=== PATIENT | female | born 1960 | race Caucasian/White ===

== ENCOUNTER 2024-04-10 15:36 | Inpatient (IN) | payer OTHER ==
--- OUTSIDE RECORDS SUMMARY | 2024-04-10 15:43 | XMS REPORT | Continuity of Care Document ---
Author Name Unknown Address [address] [facility] [address] [place] [address] [facility] thconnect Address [address] [facility] [address] [place] [address] Care Team Providers Care Air Traffic Coordinator Name Role Phone Jacob Whitley DO Primary Care Physician [phone] ALECIA BEST Attending Clinician Unavailable CHRISTELLE JIMENEZ Attending Clinician Unavailable Jacob Whitley DO Attending Clinician [phone] TEJAL QUEZADA Attending Clinician Unavaila ble Jacob Whitley DO Attending Clinician [phone] JAMILAH BOYLE Attending Clinician Unavailable Alok Aquino MD Attending Clinician [phone] ALOK AQUINO Attending Clinician Unavailable ERENDIRA ROSS Attending Clinician Unavailable [facility] Attending Clinicia n Jamilah Boyle MD Attending Clinician [phone] TUSHAR DWYER Attending Clinician Unavailable Pcp-Lab Attending Clinician Unavailable RENO JOHNSON Attending Clinician Unav RENO Reece Attending Clinician Unav AMNA Ulrich THEO Attending Clinician Unav ailable EDITH, AMNA VENEGAS Attending Clinician Unav ailable AIXA FRIEDMAN Attending Clinician Unavailable Alecia Best MD Attending Clinician [phone] Keri Mejia DO Attending Clinician [phone] Isabel HARRINGTON, Leslie Merritt Attending Clinician Unavailable Chadwick CONDON, Allen Meeks Attending Clinician Unavailable Jenn CONDON, Festus Melendez Attending Clinician [phone] Jessica FULLING MILL OPERATOR, Aye Attending Clinician [phone] Daisha RN, Abeba L Attending Clinician Unav ailable Doctor Unassigned, [place] Attending Clinician U navailable Lab, [facility] Attending Clinician Unavailable Elder CONDON, Aixa Merritt Attending Clinician [phone] FRED GASTELUM Attending Clinician Unavailable Nirav FULLING MILL OPERATOR, Fred Attending Clinician [phone] ASIM, ALICIA Attending Clinician Unavailable Asim CONDON, Alicia Attending Clinician [phone] Gaby Ackerman Attending Clinician [phone] GABY HOLM Attending Clinician Unavaila ALLEN Duarte Attending Clinician Un available AMBREEN_FARHANA Attending Clinician Unavailable Unknown, Attending Attending Clinician Unavailab karina Ross MD, Erendira Attending Clinician [phone] Uriel Arreguin Attending Clinician [phone] Yamilka Cuenca RN Attending Clinician [phone] RYNE TANG Attending Clinician Unavailable Faisal Anaya MD Attending Clinician [phone] Ryne Tang MD Attending Clinician [phone] Anesthesiology Attending Clinician Unavailable SUNNY EDDY Attending Clinician Unavailable Garett HARRINGTON, Afia Attending Clinician Unavailable RENAN HOOD Attending Clinician Unavaila ABHINAV Villalobos Attending Clinician Unavailgregorio lagunas UNKNOWN, ATTENDING Attending Clinician Unavailab karina Zee, [facility] Attending Clinician Unavailgregorio Forman MD, Bradly Attending Clinician [phone] BRDALY FORMAN Attending Clinician UnavailELSA Hartley Attending Clinician Unavail Olena Carpenter Attending Clinician UnavailALECIA Locke Admitting Clinician Unavailable JAMILAH BOYLE Admitting Clinician Unavailable FRED GASTELUM Admitting Clinician Unavailable Alecia Best MD Admitting Clinician [phone] ALLEN TAPIA Admitting Clinician Un available AMBREEN_FARHANA Admitting Clinician Unavailable RYNE TANG Admitting Clinician Unavailable Ryne Tang MD Admitting Clinician [phone] RENAN HOOD Admitting Clinician UnavailABHINAV Gastelum Admitting Clinician UnavailOlena Romero Admitting Clinician Unavailann marie noriega Payers Payer Name Policy Type Policy Number Effective Date Expirati on Date Source [facility] PL[facility] [id number] 00:00:00 [facility] PLUS OON [id number] 2021 00:00:00 [facility] (MEDICAID HMO) [id number] 2013 00:00:00 [facility] [id number] 00:00:00 Problems Condition Name Condition Details Condition Category Status Onset Date Resolution Date Last Treatment Date Treating Clinician Comments Source Encounter for screening colonoscop y Encounter for screening colonoscop y Disease Active 2021-06 00:00: 00 Overview: Formattin g of this note might be different from the original. Added automatic ally from request for surgery [id number] [facility] Stroke determined by clinical assessment Stroke determined by clinical assessment Disease Active -15 00:00: 00 [facility] Acute cardioembo lic stroke Acute cardioembo lic stroke Disease Active 3- 00:00: 00 [facility] CVA CVA Active 08/21/2021 [facility] Diagnosis Active 08-21 00:00: 00 2021-08-21 13:24:00 Inga RUELAS BILLING Active 08/21/2021 [facility] Diagnosis Active 08-21 00:00: 00 2021-08-24 10:50:00 Inga Rodríguez FACIAL DROOP FACIAL DROOP Active 08/21/2021 [facility] Diagnosis Active 08-21 00:00: 00 2021-08-25 15:29:00 Inga Rodríguez TIA (transient ischemic attack) TIA (transient ischemic attack) Disease Active 2020-06 0-04 00:00: 00 [facility] Smoker Smoker Disease Active 2020-06 0-04 00:00: 00 [facility] SDH (subdural hematoma) SDH (subdural hematoma) Disease Active 2015-06 00:00: 00 [facility] 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 00:00: 00 [facility] Malignant tumor of lung (disorder) Malignant tumor of lung (disorder) Active Problem 08/26/2021 [facility] Problem Active 2021-08-26 23:36:11 Inga Rodríguez Subdural hematoma (disorder) Subdural hematoma (disorder) Active Problem 08/26/2021 [facility] Problem Active 2021-08-26 23:36:11 Inga Rodríguez FACIAL WEAKNESS FACIAL WEAKNESS Active [facility] Diagnosis Active 2021-08-25 15:29:00 Inga Rodríguez Alcohol abuse (disorder) Alcohol abuse (disorder) Active Problem 08/26/2021 [facility] Problem Active 2021-08-26 23:36:11 Inga Rodríguez Allergies, Adverse Reactions, Alerts Allergy Name Allergy Type Status Severity Reaction(s) Onset Date Inactive Date Treating Clinician Comments Source CODEINE DRUG INGREDI Active N/V 2015-06 00:00: 00 [facility] IBUPROFE N DRUG INGREDI Active N/V 2015-06 00:00: 00 [facility] Codeine Propensi ty to adverse reaction s Active Nausea and/or Vomiting 2015-06 00:00: 00 [facility] Ibuprofe n Propensi ty to adverse reaction s Active Nausea and/or Vomiting 2015-06 00:00: 00 [facility] codeine codeine Active Inga Rodríguez ibuprofe n ibuprofe n Active Inga Rodríguez Social History Social Habit Start Date Stop Date Quantity Comments [facility] History of tobacco use Cigarette Smoker [facility] History SDOH Alcohol Frequency [facility] History SDOH Alcohol Std Drinks [facility] History SDOH Alcohol Binge [facility] History of Social function 2023-03-07 00:00:00 2023-03-07 00:00:00 [facility] Alcoholic beverage intake 2023-03-07 00:00:00 2023-03-07 00:00:00 1.43 /d [facility] Alcohol intake 2023-03-07 00:00:00 2023-03-07 00:00:00 1.43 /d [facility] Exposure to SARS-CoV-2 (event) 2022-10-02 00:00:00 2022-10-12 13:16:00 Not sure [facility] Cigarettes smoked current (pack per day) - Reported 2022-04-29 00:00:00 2022-04-29 00:00:00 [facility] Cigarette pack-years 2022-04-29 00:00:00 2022-04-29 00:00:00 [facility] Tobacco use and exposure 2022-04-29 00:00:00 2022-04-29 00:00:00 Smokeless tobacco non-user [facility] Social History 2021-08-21 19:20:05 2021-08-21 19:20:05 [facility] Alcohol Comment 2021-03-30 00:00:00 2021-03-30 00:00:00 mixed drinks every evening [facility] Sex assigned at 1960 00:00:00 1960 00:00:00 [facility] Smoking Status Start Date Stop Date Source Occasional tobacco smoker 2022-04-29 00:00:00 [facility] Smokes tobacco daily 2022-01-19 00:00:00 [facility] Medications Ordered Medication Name Filled Medication Name Start Date Stop Date Current Medication? Ordering Clinician Indication Dosage Frequency Signature (SIG) Comments Components Source ASPIRIN-DIP YRIDAMOLE 25-200 mg per 12 hr capsule 8-15 00:00: 00 Yes [id number] TAKE 1 CAPSULE BY MOUTH EVERY MORNING AND IN THE EVENING [facility] aspirin-dip yridamole 25-200 mg per 12 hr capsule 6-04 00:00: 00 02-08 00:00 :00 No [id number] 1{capsu le} Take 1 capsule by mouth in the morning and 1 capsule in the evening. [facility] aspirin-dip yridamole 25-200 mg per 12 hr capsule 5-12 00:00: 00 11-28 00:00 :00 No [id number] 1{capsu le} Take 1 capsule by mouth in the morning and 1 capsule in the evening. [facility] atorvastati n 40 mg tablet 03-07 00:00: 00 Yes [id number] 40mg Take 1 tablet by mouth at bedtime. [facility] nicotine polacrilex (NICORETTE) 4 mg gum 03-07 00:00: 00 Yes [id number] 4mg Take 1 Each by mouth as needed for Smoking cessation. [facility] Lacosamide 100 mg tablet 03-07 00:00: 00 Yes [id number] 100mg Take 1 tablet by mouth in the morning and 1 tablet in the evening. [facility] aspirin-dip yridamole 25-200 mg per 12 hr capsule 03-07 00:00: 00 11-03 00:00 :00 No [id number] 1{capsu le} Take 1 capsule by mouth in the morning and 1 capsule in the evening. [facility] sod sulf-pot chloride-ma g sulf (SUTAB) 1.479-0.188 - 0.225 gram Tab 18 00:00: 00 03-07 00:00 :00 No [id number] 1{kit} Take 1 Kit by mouth SEE-INSTRU CTIONS. 1 bottle by mouth 12 hours prior to procedure arrival time and 1 bottle 6 hours prior to procedure arrival time. [facility] sod sulf-pot chloride-ma g sulf (SUTAB) 1.479-0.188 - 0.225 gram Tab 12-31 00:00: 00 01-11 00:00 :00 No [id number] 1{bottl e} Take 1 Bottle by mouth SEE-INSTRU CTIONS. [facility] atorvastati n 40 mg tablet 12-15 00:00: 00 03-07 00:00 :00 No [id number] 40mg Take 1 tablet by mouth at bedtime. [facility] LACOSAMIDE 100 mg tablet 12-08 00:00: 00 03-07 00:00 :00 No [id number] TAKE 1 TABLET BY MOUTH TWICE A DAY [facility] atorvastati n 40 mg tablet 12-08 00:00: 00 12-15 00:00 :00 No [id number] 40mg Take 1 tablet by mouth at bedtime. [facility] NaCl 0.9% (NS) injection 10 mL 09-28 21:45: 00 09-28 20:34 :00 No [id number] 10mL [facility] clostridium botulinum toxin (BOTOX) injection 100 Units 09-28 21:30: 00 09-28 20:33 :00 No [id number] 100U [facility] lidocaine PF 2% (XYLOCAINE- MPF) injection 20 mg 09-28 20:30: 00 09-28 19:26 :00 No [id number] 20mg [facility] water for injection, sterile injection 20 mL 09-28 20:15: 00 09-28 19:26 :00 No [id number] 20mL [facility] lidocaine (XYLOCAINE) 2 % jelly URO-JET 11 mL 09-28 20:15: 00 09-28 19:28 :00 No [id number] 11mL [facility] sulfamethox azole-trime thoprim 800-160 mg per tablet 3-09 00:00: 00 09-10 04:59 :00 No [id number] 1{tbl} Take 1 tablet by mouth in the morning and 1 tablet in the evening. Do all this for 7 days. [facility] Nitrofurant oin&Nit. Macrocryst (MACROBID) 100 mg capsule 3-09 00:00: 00 09-09 04:59 :00 No [id number] 100mg Take 1 capsule by mouth at bedtime for 6 doses. 3 days prior to procedure and 3 days after [facility] sulfamethox azole-trime thoprim 800-160 mg per tablet 2-27 00:00: 00 08-27 05:59 :00 No [id number] 1{tbl} Take 1 tablet by mouth in the morning and 1 tablet in the evening. Do all this for 3 days. [facility] sulfamethox azole-trime thoprim 800-160 mg per tablet 2-07 00:00: 00 08-11 05:59 :00 No [id number] 1{tbl} Take 1 tablet by mouth in the morning and 1 tablet in the evening. Do all this for 7 days. [facility] Nitrofurant oin&Nit. Macrocryst (MACROBID) 100 mg capsule 2-03 00:00: 00 08-06 05:59 :00 No [id number] 100mg Take 1 capsule by mouth at bedtime for 6 doses. 3 days prior to procedure and 3 days after [facility] LACOSAMIDE 100 mg tablet 2021-06- 00:00: 00 12-08 00:00 :00 No [id number] TAKE 1 TABLET BY MOUTH TWICE A DAY [facility] sodium chloride 0.9 % irrigation solution 2021-06 13:43: 00 04-30 15:13 :14 No PRN, Starting on Tue04/30/22 at 0843, Until Tue04/30/22 at 1013, Intra-op [facility] simethicone (GAS RELIEF (SIMETHICON E)) 40 mg/0.6 mL drops 2021-06 13:43: 00 04-30 15:13 :14 No PRN, Starting on Tue04/30/22 at 0843, Until Tue04/30/22 at 1013, Routine, Intra-op [facility] lactated ringers IV infusion 1,000 mL 2021-06 1-04 12:15: 00 04-30 12:42 :00 No 1000mL at 42 mL/hr, 1,000 mL, IV Infusion, ONCE, 1 dose, On Tue04/30/22 at 0715, Routine, [facility] Pre-op [facility] ATORVASTATI N 40 mg tablet 2021-06 0-20 00:00: 00 12-08 00:00 :00 No [id number] TAKE 1 TABLET BY MOUTH EVERYDAY AT BEDTIME [facility] solifenacin (VESICARE) 10 mg tablet 2021-06 0-10 00:00: 00 05-06 05:59 :00 No [id number] 10mg Take 1 tablet by mouth in the morning for 30 days. [facility] aspirin-dip yridamole 25-200 mg per 12 hr capsule 9-30 00:00: 00 03-07 00:00 :00 No 1{capsu le} Take 1 capsule by mouth in the morning and 1 capsule in the evening. [facility] estradioL (ESTRACE) 0.01 % (0.1 mg/gram) vaginal cream 8-15 00:00: 00 Yes [id number] Apply 1g vaginally at bedtime every night for 2 weeks and then apply 1g vaginally at bedtime 2 times per week [facility] nicotine 14 mg/24 hr patch 5-04 00:00: 00 03-07 00:00 :00 No [id number] 1{patch } Apply 1 Patch to area(s) every 24 (twenty-fo ur) hours. [facility] thiamine 100 mg tablet 5-04 00:00: 00 03-07 00:00 :00 No [id number] 100mg Take 1 tablet by mouth daily. [facility] Lacosamide (VIMPAT) 100 mg tablet 5-04 00:00: 00 05-19 00:00 :00 No [id number] 100mg Take 1 tablet by mouth 2 (two) times daily. [facility] atorvastati n 40 mg tablet 10-28 00:00: 00 04-15 00:00 :00 No [id number] 40mg Take 1 tablet by mouth at bedtime. [facility] foLIC acid 1 mg tablet 18 00:00: 03-07 00:00 :00 No [id number] 1mg Take 1 tablet by mouth daily. [facility] Occupationa l Therapy 08-24 12:08: 00 Yes See Aram lamas, SALLY, ONCALL, Evaluate and Treat _3__ times per week for __5__ weeks Acute ischemic stroke I63.9 Dr Renan Hood, # 1 ea, 0 Refill(s) Inga Rodríguez Physical Therapy 08-24 12:05: 00 Yes See Aram lamas, SALLY, ONCFAREED, Evaluate and Treat __3_ times per week for __5__ weeks Acute Ischemic Stroke I63.9 Dr Renan Hood, # 1 ea, 0 Refill(s) Inga Rodríguez atorvastati n 80 mg oral tablet 08-24 12:04: 00 Yes 80 mg = 1 tab, PO, Bedtime, # 30 tab, 2 Refill(s) Inga Rodríguez clopidogrel 75 mg oral tablet 08-24 12:03: 00 No 75 mg = 1 tab, PO, Daily, # 30 tab, 0 Refill(s) Inga Rodríguez atorvastati n 40 mg oral tablet 08-24 12:03: 00 No 40 mg = 1 tab, PO, Bedtime, # 30 tab, 0 Refill(s) Inga Rodríguez potassium chloride 20 mEq oral tablet, extended release (KCL) 08-24 12:02: 00 No Notes: (Same as: K-Dur 20) "Do Not Crush" Give with food and full glass of water For patients unable to swallow tablet, dissolve in one half glass of water. Allow about 2 minutes for the tablets to disintegra te. Stir before giving to prepare slurry and administer . Please exclude Patient s with feeding tube less than 14 [place] (Dobhoff, J-tube etc) and pediatric and patients. Inga Rodríguez Zofran 08-23 22:35: 00 No Notes: MEDICATION WASTE Product Size: 4 mg Product Wasted: 0 mg Inga Rodríguez Docusate 08-22 03:00: 00 No Notes: (Same as: Colace) (Do Not Crush) Inga Rodríguez atorvastati n 08-22 03:00: 00 No Notes: Same as Lipitor Inga rené RodriguesMarcos heparin 08-21 22:00: 00 No 5,000 unit, Route: SUB-Q, Q8H, kg, (For patients weighing < 100 kg)., Start date: 08/21/21 16:00:00 SOIL CONSERVATION AIDE, Duration: 30 day, Stop date: 09/20/21 8:00:00 CDT Inga Rodríguez Aspirin 81 MG Chewable Tablet 08-21 20:00: 00 No 81 mg, Route: PO, Drug form: CHEWTAB, Q24H, kg, Start date: 08/21/21 14:00:00 SOIL CONSERVATION AIDE, Duration: 30 day, Stop date: 09/19/21 14:00:00 CDT Inga Rodríguez clopidogrel 08-21 20:00: 00 No 75 mg, Route: PO, Drug form: TAB, Q24H, kg, Start date: 08/21/21 14:00:00 SOIL CONSERVATION AIDE, Duration: 30 day, Stop date: 09/19/21 14:00:00 CDT Inga Rodríguez Bisacodyl 08-21 19:25: 00 No Notes: (Same As: Dulcolax, Bisco-Lax) Inga merritt Marcos Acetaminoph en 08-21 19:25: 00 No Notes: Do not exceed 4 gm/day. (Same as: Tylenol) Inga Rodríguez Saline Flush 0.9% 08-21 19:25: 00 No Notes: (Same as: BD Posiflush) Inga Rodríguez Labetalol 08-21 19:25: 00 No 10 mg, 2 mL, Route: IVP, Drug form: INJ, Q10Min, kg, PRN Hypertensi on, Start date: 08/21/21 13:25:00 SOIL CONSERVATION AIDE, Duration: 3 doses or times, Stop date: Limited # of times, 0 Inga Rodríguez Iohexol 08-21 18:51: 00 No 100 mL, Route: IVP, Drug Form: SOLN, kg, ONCALL, STAT, Start date: 08/21/21 12:51:00 SOIL CONSERVATION AIDE, Duration: 1 doses or times, Dose = 2.2ml/kg, Max dose = 100ml -- "To be infused by Radiology Staff ONLY" Inga Rodríguez Saline Flush 0.9% 08-21 18:31: 00 No Notes: (Same as: BD Posiflush) Inga Rodríguez Immunizations Ordered Immunization Name Filled Immunization Name Date Status Comments Source Pneumococcal 20 Conjugate, PCV20 (Prevnar 20) 2023-03-07 00:00:00 Completed [facility] Pneumococcal 20 Conjugate, PCV20 (Prevnar 20) 2023-03-07 00:00:00 Completed [facility] Influenza Virus Vaccine Quad IM, Preserv and ABX Free 6 MO-64 YRS 2022-03-31 00:00:00 Completed [facility] Influenza Virus Vaccine Quad IM, Preserv and ABX Free 6 MO-64 YRS 2022-03-31 00:00:00 Completed [facility] Influenza Virus Vaccine Quad IM, Preserv and ABX Free 6 MO-64 YRS 2022-03-31 00:00:00 Completed [facility] Influenza Virus Vaccine Quad IM, Preserv and ABX Free 6 MO-64 YRS 2022-03-31 00:00:00 Completed [facility] Influenza Virus Vaccine Quad IM, Preserv and ABX Free 6 MO-64 YRS 2022-03-31 00:00:00 Completed [facility] Influenza Virus Vaccine Quad IM, Preserv and ABX Free 6 MO-64 YRS 2022-03-31 00:00:00 Completed [facility] Influenza Virus Vaccine Quad IM, Preserv and ABX Free 6 MO-64 YRS 2022-03-31 00:00:00 Completed [facility] Influenza Virus Vaccine Quad IM, Preserv and ABX Free 6 MO-64 YRS 2022-03-31 00:00:00 Completed [facility] Influenza Virus Vaccine Quad IM, Preserv and ABX Free 6 MO-64 YRS 2022-03-31 00:00:00 Completed [facility] Influenza Virus Vaccine Quad IM, Preserv and ABX Free 6 MO-64 YRS 2022-03-31 00:00:00 Completed [facility] Influenza Virus Vaccine Quad IM, Preserv and ABX Free 6 MO-64 YRS 2022-03-31 00:00:00 Completed [facility] Influenza Virus Vaccine Quad IM, Preserv and ABX Free 6 MO-64 YRS 2022-03-31 00:00:00 Completed [facility] Influenza Virus Vaccine Quad IM, Preserv and ABX Free 6 MO-64 YRS 2022-03-31 00:00:00 Completed [facility] Influenza Virus Vaccine Quad IM, Preserv and ABX Free 6 MO-64 YRS 2022-03-31 00:00:00 Completed [facility] Influenza Virus Vaccine Quad IM, Preserv and ABX Free 6 MO-64 YRS 2022-03-31 00:00:00 Completed [facility] Influenza Virus Vaccine Quad IM, Preserv and ABX Free 6 MO-64 2022-03-31 00:00:00 Completed [facility] Influenza Virus Vaccine Quad IM, Preserv and ABX Free MO-64 2022-03-31 00:00:00 Completed [facility] Influenza Virus Vaccine Quad IM, Preserv and ABX Free 6 MO-64 YRS 2022-03-31 00:00:00 Completed [facility] Influenza Virus Vaccine Quad IM, Preserv and ABX Free 6 MO-64 YRS 2022-03-31 00:00:00 Completed [facility] Influenza Virus Vaccine Quad IM, Preserv and ABX Free 6 MO-64 2022-03-31 00:00:00 Completed [facility] Influenza Virus Vaccine Quad IM, Preserv and ABX Free 6 MO-64 2022-03-31 00:00:00 Completed [facility] Influenza Virus Vaccine Quad IM, Preserv and ABX Free 6 MO-64 2022-03-31 00:00:00 Completed [facility] Influenza Virus Vaccine Quad IM, Preserv and ABX Free 6 MO-64 YRS 2022-03-31 00:00:00 Completed [facility] Influenza Virus Vaccine Quad IM, Preserv and ABX Free 6 MO-64 YRS 2022-03-31 00:00:00 Completed [facility] Influenza Virus Vaccine Quad IM, Preserv and ABX Free 6 MO-64 YRS 2022-03-31 00:00:00 Completed [facility] Influenza Virus Vaccine Quad IM, Preserv and ABX Free 6 MO-64 YRS 2022-03-31 00:00:00 Completed [facility] Influenza Virus Vaccine Quad IM, Preserv and ABX Free 6 MO-64 YRS 2022-03-31 00:00:00 Completed [facility] Influenza Virus Vaccine Quad IM, Preserv and ABX Free 6 MO-64 YRS 2022-03-31 00:00:00 Completed [facility] Influenza Virus Vaccine Quad IM, Preserv and ABX Free 6 MO-64 YRS 2022-03-31 00:00:00 Completed [facility] Influenza Virus Vaccine Quad IM, Preserv and ABX Free 6 MO-64 YRS 2022-03-31 00:00:00 Completed [facility] Influenza Virus Vaccine Quad IM, Preserv and ABX Free MO-64 2022-03-31 00:00:00 Completed [facility] Influenza Virus Vaccine Quad IM, Preserv and ABX Free 6 MO-64 2022-03-31 00:00:00 Completed [facility] Influenza Virus Vaccine Quad IM, Preserv and ABX Free MO-64 YRS 2022-03-31 00:00:00 Completed [facility] Influenza Virus Vaccine Quad IM, Preserv and ABX Free 6 MO-64 YRS 2022-03-31 00:00:00 Completed [facility] Influenza Virus Vaccine Quad IM, Preserv and ABX Free 6 MO-64 2022-03-31 00:00:00 Completed [facility] Influenza Virus Vaccine Quad IM, Preserv and ABX Free 6 MO-64 2022-03-31 00:00:00 Completed [facility] Influenza Virus Vaccine Quad IM, Preserv and ABX Free 6 MO-64 YRS 2022-03-31 00:00:00 Completed [facility] Influenza Virus Vaccine Quad IM, Preserv and ABX Free 6 MO-64 YRS 2022-03-31 00:00:00 Completed [facility] Influenza Virus Vaccine Quad IM, Preserv and ABX Free 6 MO-64 YRS 2022-03-31 00:00:00 Completed [facility] Influenza Virus Vaccine Quad IM, Preserv and ABX Free 6 MO-64 YRS 2022-03-31 00:00:00 Completed [facility] Influenza Virus Vaccine Quad IM, Preserv and ABX Free 6 MO-64 YRS (FLUCELVAX) 2022-03-31 00:00:00 Completed [facility] Influenza Virus Vaccine Quad IM, Preserv and ABX Free 6 MO-64 YRS (FLUCELVAX) 2022-03-31 00:00:00 Completed [facility] Zoster Vaccine Recombinant 2021-05-04 00:00:00 [facility] [facility] Zoster Vaccine Recombinant 2021-05-04 00:00:00 Completed [facility] Zoster Vaccine Recombinant 2021-05-04 00:00:00 Completed [facility] Zoster Vaccine Recombinant 2021-05-04 00:00:00 Completed [facility] Zoster Vaccine Recombinant 2021-05-04 00:00:00 Completed [facility] Zoster Vaccine Recombinant 2021-05-04 00:00:00 Completed [facility] Zoster Vaccine Recombinant 2021-05-04 00:00:00 Completed [facility] Zoster Vaccine Recombinant 2021-05-04 00:00:00 Completed [facility] Zoster Vaccine Recombinant 2021-05-04 00:00:00 Completed [facility] Zoster Vaccine Recombinant 2021-05-04 00:00:00 Completed [facility] Zoster Vaccine Recombinant 2021-05-04 00:00:00 Completed [facility] Zoster Vaccine Recombinant 2021-05-04 00:00:00 Completed [facility] Zoster Vaccine Recombinant 2021-05-04 00:00:00 Completed [facility] Zoster Vaccine Recombinant 2021-05-04 00:00:00 Completed [facility] Zoster Vaccine Recombinant 2021-05-04 00:00:00 Completed [facility] Zoster Vaccine Recombinant 2021-05-04 00:00:00 Completed [facility] Zoster Vaccine Recombinant 2021-05-04 00:00:00 Completed [facility] Zoster Vaccine Recombinant 2021-05-04 00:00:00 Completed [facility] Zoster Vaccine Recombinant 2021-05-04 00:00:00 Completed [facility] Zoster Vaccine Recombinant 2021-05-04 00:00:00 Completed [facility] Zoster Vaccine Recombinant 2021-05-04 00:00:00 Completed [facility] Zoster Vaccine Recombinant 2021-05-04 00:00:00 Completed [facility] Zoster Vaccine Recombinant 2021-05-04 00:00:00 Completed [facility] Zoster Vaccine Recombinant 2021-05-04 00:00:00 Completed [facility] Zoster Vaccine Recombinant 2021-05-04 00:00:00 Completed [facility] Zoster Vaccine Recombinant 2021-05-04 00:00:00 Completed [facility] Zoster Vaccine Recombinant 2021-05-04 00:00:00 Completed [facility] Zoster Vaccine Recombinant 2021-05-04 00:00:00 Completed [facility] Zoster Vaccine Recombinant 2021-05-04 00:00:00 Completed [facility] Zoster Vaccine Recombinant 2021-05-04 00:00:00 Completed [facility] Zoster Vaccine Recombinant 2021-05-04 00:00:00 Completed [facility] Zoster Vaccine Recombinant 2021-05-04 00:00:00 Completed [facility] Zoster Vaccine Recombinant 2021-05-04 00:00:00 Completed [facility] Zoster Vaccine Recombinant 2021-05-04 00:00:00 Completed [facility] Zoster Vaccine Recombinant 2021-05-04 00:00:00 Completed [facility] Zoster Vaccine Recombinant 2021-05-04 00:00:00 Completed [facility] Zoster Vaccine Recombinant 2021-05-04 00:00:00 Completed [facility] Zoster Vaccine Recombinant 2021-05-04 00:00:00 Completed [facility] Zoster Vaccine Recombinant 2021-05-04 00:00:00 Completed [facility] Zoster Vaccine Recombinant 2021-05-04 00:00:00 Completed [facility] Zoster Vaccine Recombinant 2021-05-04 00:00:00 Completed [facility] Zoster Vaccine Recombinant 2021-05-04 00:00:00 Completed [facility] Zoster Vaccine Recombinant 2021-05-04 00:00:00 Completed [facility] Zoster Vaccine Recombinant 2021-05-04 00:00:00 Completed [facility] Influenza Virus Vaccine Quad IM, Preserv and ABX Free 6 MO-64 YRS 2021-03-30 00:00:00 Completed [facility] Influenza Virus Vaccine Quad IM, Preserv and ABX Free 6 MO-64 YRS 2021-03-30 00:00:00 Completed [facility] Influenza Virus Vaccine Quad IM, Preserv and ABX Free 6 MO-64 YRS 2021-03-30 00:00:00 Completed [facility] Influenza Virus Vaccine Quad IM, Preserv and ABX Free 6 MO-64 YRS 2021-03-30 00:00:00 Completed [facility] Influenza Virus Vaccine Quad IM, Preserv and ABX Free 6 MO-64 YRS 2021-03-30 00:00:00 Completed [facility] Influenza Virus Vaccine Quad IM, Preserv and ABX Free 6 MO-64 YRS 2021-03-30 00:00:00 Completed [facility] Influenza Virus Vaccine Quad IM, Preserv and ABX Free 6 MO-64 YRS 2021-03-30 00:00:00 Completed [facility] Influenza Virus Vaccine Quad IM, Preserv and ABX Free 6 MO-64 YRS 2021-03-30 00:00:00 Completed [facility] Influenza Virus Vaccine Quad IM, Preserv and ABX Free 6 MO-64 YRS 2021-03-30 00:00:00 Completed [facility] Influenza Virus Vaccine Quad IM, Preserv and ABX Free 6 MO-64 YRS 2021-03-30 00:00:00 Completed [facility] Influenza Virus Vaccine Quad IM, Preserv and ABX Free 6 MO-64 YRS 2021-03-30 00:00:00 Completed [facility] Influenza Virus Vaccine Quad IM, Preserv and ABX Free 6 MO-64 YRS 2021-03-30 00:00:00 Completed [facility] Influenza Virus Vaccine Quad IM, Preserv and ABX Free 6 MO-64 YRS 2021-03-30 00:00:00 Completed [facility] Influenza Virus Vaccine Quad IM, Preserv and ABX Free 6 MO-64 YRS 2021-03-30 00:00:00 Completed [facility] Influenza Virus Vaccine Quad IM, Preserv and ABX Free 6 MO-64 YRS 2021-03-30 00:00:00 Completed [facility] Influenza Virus Vaccine Quad IM, Preserv and ABX Free 6 MO-64 YRS 2021-03-30 00:00:00 Completed [facility] Influenza Virus Vaccine Quad IM, Preserv and ABX Free 6 MO-64 YRS 2021-03-30 00:00:00 Completed [facility] Influenza Virus Vaccine Quad IM, Preserv and ABX Free 6 MO-64 YRS 2021-03-30 00:00:00 Completed [facility] Influenza Virus Vaccine Quad IM, Preserv and ABX Free 6 MO-64 YRS 2021-03-30 00:00:00 Completed [facility] Influenza Virus Vaccine Quad IM, Preserv and ABX Free 6 MO-64 YRS 2021-03-30 00:00:00 Completed [facility] Influenza Virus Vaccine Quad IM, Preserv and ABX Free 6 MO-64 YRS 2021-03-30 00:00:00 Completed [facility] Influenza Virus Vaccine Quad IM, Preserv and ABX Free 6 MO-64 YRS 2021-03-30 00:00:00 Completed [facility] Influenza Virus Vaccine Quad IM, Preserv and ABX Free 6 MO-64 YRS 2021-03-30 00:00:00 Completed [facility] Influenza Virus Vaccine Quad IM, Preserv and ABX Free 6 MO-64 YRS 2021-03-30 00:00:00 Completed [facility] Influenza Virus Vaccine Quad IM, Preserv and ABX Free 6 MO-64 YRS 2021-03-30 00:00:00 Completed [facility] Influenza Virus Vaccine Quad IM, Preserv and ABX Free 6 MO-64 YRS 2021-03-30 00:00:00 Completed [facility] Influenza Virus Vaccine Quad IM, Preserv and ABX Free 6 MO-64 YRS 2021-03-30 00:00:00 Completed [facility] Influenza Virus Vaccine Quad IM, Preserv and ABX Free 6 MO-64 YRS 2021-03-30 00:00:00 Completed [facility] Influenza Virus Vaccine Quad IM, Preserv and ABX Free 6 MO-64 YRS 2021-03-30 00:00:00 Completed [facility] Influenza Virus Vaccine Quad IM, Preserv and ABX Free 6 MO-64 YRS 2021-03-30 00:00:00 Completed [facility] Influenza Virus Vaccine Quad IM, Preserv and ABX Free 6 MO-64 YRS 2021-03-30 00:00:00 Completed [facility] Influenza Virus Vaccine Quad IM, Preserv and ABX Free 6 MO-64 YRS 2021-03-30 00:00:00 Completed [facility] Influenza Virus Vaccine Quad IM, Preserv and ABX Free 6 MO-64 YRS 2021-03-30 00:00:00 Completed [facility] Influenza Virus Vaccine Quad IM, Preserv and ABX Free 6 MO-64 YRS 2021-03-30 00:00:00 Completed [facility] Influenza Virus Vaccine Quad IM, Preserv and ABX Free 6 MO-64 YRS 2021-03-30 00:00:00 Completed [facility] Influenza Virus Vaccine Quad IM, Preserv and ABX Free 6 MO-64 YRS 2021-03-30 00:00:00 Completed [facility] Influenza Virus Vaccine Quad IM, Preserv and ABX Free 6 MO-64 YRS 2021-03-30 00:00:00 Completed [facility] Influenza Virus Vaccine Quad IM, Preserv and ABX Free 6 MO-64 YRS 2021-03-30 00:00:00 Completed [facility] Influenza Virus Vaccine Quad IM, Preserv and ABX Free 6 MO-64 YRS 2021-03-30 00:00:00 Completed [facility] Influenza Virus Vaccine Quad IM, Preserv and ABX Free 6 MO-64 YRS 2021-03-30 00:00:00 Completed [facility] Influenza Virus Vaccine Quad IM, Preserv and ABX Free 6 MO-64 YRS 2021-03-30 00:00:00 Completed [facility] Influenza Virus Vaccine Quad IM, Preserv and ABX Free 6 MO-64 YRS 2021-03-30 00:00:00 Completed [facility] Influenza Virus Vaccine Quad IM, Preserv and ABX Free 6 MO-64 YRS (FLUCELVAX) 2021-03-30 00:00:00 Completed [facility] Influenza Virus Vaccine Quad IM, Preserv and ABX Free 6 MO-64 YRS (FLUCELVAX) 2021-03-30 00:00:00 Completed [facility] SARS-COV-2 COVID-19 PFIZER VACCINE 2021-02-06 00:00:00 Completed [facility] SARS-COV-2 COVID-19 PFIZER VACCINE 2021-02-06 00:00:00 Completed [facility] SARS-COV-2 COVID-19 PFIZER VACCINE 2021-02-06 00:00:00 Completed [facility] SARS-COV-2 COVID-19 PFIZER VACCINE 2021-02-06 00:00:00 Completed [facility] SARS-COV-2 COVID-19 PFIZER VACCINE 2021-02-06 00:00:00 Completed [facility] SARS-COV-2 COVID-19 PFIZER VACCINE 2021-02-06 00:00:00 Completed [facility] SARS-COV-2 COVID-19 PFIZER VACCINE 2021-02-06 00:00:00 Completed [facility] SARS-COV-2 COVID-19 PFIZER VACCINE 2021-02-06 00:00:00 Completed [facility] SARS-COV-2 COVID-19 PFIZER VACCINE 2021-02-06 00:00:00 Completed [facility] SARS-COV-2 COVID-19 PFIZER VACCINE 2021-02-06 00:00:00 Completed [facility] SARS-COV-2 COVID-19 PFIZER VACCINE 2021-02-06 00:00:00 Completed [facility] SARS-COV-2 COVID-19 PFIZER VACCINE 2021-02-06 00:00:00 Completed [facility] SARS-COV-2 COVID-19 PFIZER VACCINE 2021-02-06 00:00:00 Completed [facility] SARS-COV-2 COVID-19 PFIZER VACCINE 2021-02-06 00:00:00 Completed [facility] SARS-COV-2 COVID-19 PFIZER VACCINE 2021-02-06 00:00:00 Completed [facility] SARS-COV-2 COVID-19 PFIZER VACCINE 2021-02-06 00:00:00 Completed [facility] SARS-COV-2 COVID-19 PFIZER VACCINE 2021-02-06 00:00:00 Completed [facility] SARS-COV-2 COVID-19 PFIZER VACCINE 2021-02-06 00:00:00 Completed [facility] SARS-COV-2 COVID-19 PFIZER VACCINE 2021-02-06 00:00:00 Completed [facility] SARS-COV-2 COVID-19 PFIZER VACCINE 2021-02-06 00:00:00 Completed [facility] SARS-COV-2 COVID-19 PFIZER VACCINE 2021-02-06 00:00:00 Completed [facility] SARS-COV-2 COVID-19 PFIZER VACCINE 2021-02-06 00:00:00 Completed [facility] SARS-COV-2 COVID-19 PFIZER VACCINE 2021-02-06 00:00:00 Completed [facility] SARS-COV-2 COVID-19 PFIZER VACCINE 2021-02-06 00:00:00 Completed [facility] SARS-COV-2 COVID-19 PFIZER VACCINE 2021-02-06 00:00:00 Completed [facility] SARS-COV-2 COVID-19 PFIZER VACCINE 2021-02-06 00:00:00 Completed [facility] SARS-COV-2 COVID-19 PFIZER VACCINE 2021-02-06 00:00:00 Completed [facility] SARS-COV-2 COVID-19 PFIZER VACCINE 2021-02-06 00:00:00 Completed [facility] SARS-COV-2 COVID-19 PFIZER VACCINE 2021-02-06 00:00:00 Completed [facility] SARS-COV-2 COVID-19 PFIZER VACCINE 2021-02-06 00:00:00 Completed [facility] SARS-COV-2 COVID-19 PFIZER VACCINE 2021-02-06 00:00:00 Completed [facility] SARS-COV-2 COVID-19 PFIZER VACCINE 2021-02-06 00:00:00 Completed [facility] SARS-COV-2 COVID-19 PFIZER VACCINE 2021-02-06 00:00:00 Completed [facility] SARS-COV-2 COVID-19 PFIZER VACCINE 2021-02-06 00:00:00 Completed [facility] SARS-COV-2 COVID-19 PFIZER VACCINE 2021-02-06 00:00:00 Completed [facility] SARS-COV-2 COVID-19 PFIZER VACCINE 2021-02-06 00:00:00 Completed [facility] SARS-COV-2 COVID-19 PFIZER VACCINE 2021-02-06 00:00:00 Completed [facility] SARS-COV-2 COVID-19 PFIZER VACCINE 2021-02-06 00:00:00 Completed [facility] SARS-COV-2 COVID-19 PFIZER VACCINE 2021-02-06 00:00:00 Completed [facility] SARS-COV-2 COVID-19 PFIZER VACCINE 2021-02-06 00:00:00 Completed [facility] SARS-COV-2 COVID-19 PFIZER VACCINE 2021-02-06 00:00:00 Completed [facility] SARS-COV-2 COVID-19 PFIZER VACCINE 2021-02-06 00:00:00 Completed [facility] SARS-COV-2 COVID-19 PFIZER VACCINE 2021-02-06 00:00:00 Completed [facility] SARS-COV-2 COVID-19 PFIZER VACCINE 2021-02-06 00:00:00 Completed [facility] SARS-COV-2 COVID-19 PFIZER VACCINE 2021-01-16 00:00:00 Completed [facility] SARS-COV-2 COVID-19 PFIZER VACCINE 2021-01-16 00:00:00 Completed [facility] SARS-COV-2 COVID-19 PFIZER VACCINE 2021-01-16 00:00:00 Completed [facility] SARS-COV-2 COVID-19 PFIZER VACCINE 2021-01-16 00:00:00 Completed [facility] SARS-COV-2 COVID-19 PFIZER VACCINE 2021-01-16 00:00:00 Completed [facility] SARS-COV-2 COVID-19 PFIZER VACCINE 2021-01-16 00:00:00 Completed [facility] SARS-COV-2 COVID-19 PFIZER VACCINE 2021-01-16 00:00:00 Completed [facility] SARS-COV-2 COVID-19 PFIZER VACCINE 2021-01-16 00:00:00 Completed [facility] SARS-COV-2 COVID-19 PFIZER VACCINE 2021-01-16 00:00:00 Completed [facility] SARS-COV-2 COVID-19 PFIZER VACCINE 2021-01-16 00:00:00 Completed [facility] SARS-COV-2 COVID-19 PFIZER VACCINE 2021-01-16 00:00:00 Completed [facility] SARS-COV-2 COVID-19 PFIZER VACCINE 2021-01-16 00:00:00 Completed [facility] SARS-COV-2 COVID-19 PFIZER VACCINE 2021-01-16 00:00:00 Completed [facility] SARS-COV-2 COVID-19 PFIZER VACCINE 2021-01-16 00:00:00 Completed [facility] SARS-COV-2 COVID-19 PFIZER VACCINE 2021-01-16 00:00:00 Completed [facility] SARS-COV-2 COVID-19 PFIZER VACCINE 2021-01-16 00:00:00 Completed [facility] SARS-COV-2 COVID-19 PFIZER VACCINE 2021-01-16 00:00:00 Completed [facility] SARS-COV-2 COVID-19 PFIZER VACCINE 2021-01-16 00:00:00 Completed [facility] SARS-COV-2 COVID-19 PFIZER VACCINE 2021-01-16 00:00:00 Completed [facility] SARS-COV-2 COVID-19 PFIZER VACCINE 2021-01-16 00:00:00 Completed [facility] SARS-COV-2 COVID-19 PFIZER VACCINE 2021-01-16 00:00:00 Completed [facility] SARS-COV-2 COVID-19 PFIZER VACCINE 2021-01-16 00:00:00 Completed [facility] SARS-COV-2 COVID-19 PFIZER VACCINE 2021-01-16 00:00:00 Completed [facility] SARS-COV-2 COVID-19 PFIZER VACCINE 2021-01-16 00:00:00 Completed [facility] SARS-COV-2 COVID-19 PFIZER VACCINE 2021-01-16 00:00:00 Completed [facility] SARS-COV-2 COVID-19 PFIZER VACCINE 2021-01-16 00:00:00 Completed [facility] SARS-COV-2 COVID-19 PFIZER VACCINE 2021-01-16 00:00:00 Completed [facility] SARS-COV-2 COVID-19 PFIZER VACCINE 2021-01-16 00:00:00 Completed [facility] SARS-COV-2 COVID-19 PFIZER VACCINE 2021-01-16 00:00:00 Completed [facility] SARS-COV-2 COVID-19 PFIZER VACCINE 2021-01-16 00:00:00 Completed [facility] SARS-COV-2 COVID-19 PFIZER VACCINE 2021-01-16 00:00:00 Completed [facility] SARS-COV-2 COVID-19 PFIZER VACCINE 2021-01-16 00:00:00 Completed [facility] SARS-COV-2 COVID-19 PFIZER VACCINE 2021-01-16 00:00:00 Completed [facility] SARS-COV-2 COVID-19 PFIZER VACCINE 2021-01-16 00:00:00 Completed [facility] SARS-COV-2 COVID-19 PFIZER VACCINE 2021-01-16 00:00:00 Completed [facility] SARS-COV-2 COVID-19 PFIZER VACCINE 2021-01-16 00:00:00 Completed [facility] SARS-COV-2 COVID-19 PFIZER VACCINE 2021-01-16 00:00:00 Completed [facility] SARS-COV-2 COVID-19 PFIZER VACCINE 2021-01-16 00:00:00 Completed [facility] SARS-COV-2 COVID-19 PFIZER VACCINE 2021-01-16 00:00:00 Completed [facility] SARS-COV-2 COVID-19 PFIZER VACCINE 2021-01-16 00:00:00 Completed [facility] SARS-COV-2 COVID-19 PFIZER VACCINE 2021-01-16 00:00:00 Completed [facility] SARS-COV-2 COVID-19 PFIZER VACCINE 2021-01-16 00:00:00 Completed [facility] SARS-COV-2 COVID-19 PFIZER VACCINE 2021-01-16 00:00:00 Completed [facility] SARS-COV-2 COVID-19 PFIZER VACCINE 2021-01-16 00:00:00 Completed [facility] Pneumococcal 20 Conjugate, PCV20 (Prevnar 20) Unknown Completed [facility] SARS-COV-2 COVID-19 PFIZER VACCINE Unknown Completed [facility] Influenza Virus Vaccine Quad IM, Preserv and ABX Free 6 MO-64 YRS (FLUCELVAX) Unknown Completed [facility] Zoster Vaccine Recombinant Unknown Completed [facility] Pneumococcal 20 Conjugate, PCV20 (Prevnar 20) Unknown Completed [facility] SARS-COV-2 COVID-19 PFIZER VACCINE Unknown Completed [facility] Influenza Virus Vaccine Quad IM, Preserv and ABX Free 6 MO-64 YRS (FLUCELVAX) Unknown Completed [facility] Zoster Vaccine Recombinant Unknown Completed [facility] Pneumococcal 20 Conjugate, PCV20 (Prevnar 20) Unknown Completed [facility] SARS-COV-2 COVID-19 PFIZER VACCINE Unknown Completed [facility] Influenza Virus Vaccine Quad IM, Preserv and ABX Free 6 MO-64 YRS (FLUCELVAX) Unknown Completed [facility] Zoster Vaccine Recombinant Unknown Completed [facility] Pneumococcal 20 Conjugate, PCV20 (Prevnar 20) Unknown Completed [facility] SARS-COV-2 COVID-19 PFIZER VACCINE Unknown Completed [facility] Influenza Virus Vaccine Quad IM, Preserv and ABX Free 6 MO-64 YRS (FLUCELVAX) Unknown Completed [facility] Zoster Vaccine Recombinant Unknown Completed [facility] Pneumococcal 20 Conjugate, PCV20 (Prevnar 20) Unknown Completed [facility] SARS-COV-2 COVID-19 PFIZER VACCINE Unknown Completed [facility] Influenza Virus Vaccine Quad IM, Preserv and ABX Free 6 MO-64 YRS (FLUCELVAX) Unknown Completed [facility] Zoster Vaccine Recombinant Unknown Completed [facility] Pneumococcal 20 Conjugate, PCV20 (Prevnar 20) Unknown Completed [facility] SARS-COV-2 COVID-19 PFIZER VACCINE Unknown Completed [facility] Influenza Virus Vaccine Quad IM, Preserv and ABX Free 6 MO-64 YRS (FLUCELVAX) Unknown Completed [facility] Zoster Vaccine Recombinant Unknown Completed [facility] Pneumococcal 20 Conjugate, PCV20 (Prevnar 20) Unknown Completed [facility] Zoster Vaccine Recombinant Unknown Completed [facility] Pneumococcal 20 Conjugate, PCV20 (Prevnar 20) Unknown Completed [facility] SARS-COV-2 COVID-19 PFIZER VACCINE Unknown Completed [facility] Influenza Virus Vaccine Quad IM, Preserv and ABX Free 6 MO-64 YRS (FLUCELVAX) Unknown Completed [facility] SARS-COV-2 COVID-19 PFIZER VACCINE Unknown Completed [facility] Influenza Virus Vaccine Quad IM, Preserv and ABX Free 6 MO-64 YRS (FLUCELVAX) Unknown Completed [facility] Zoster Vaccine Recombinant Unknown Completed [facility] Vital Signs Vital Name Observation Time Observation Value Comments S ource Systolic blood pressure 2023-03-07 14:09:00 106 mm[Hg] [facility] Diastolic blood pressure 2023-03-07 14:09:00 63 mm[Hg] [facility] Heart rate 2023-03-07 14:09:00 91 /min [facility] Body temperature 2023-03-07 14:09:00 36.06 Yasmeen [facility] Respiratory rate 2023-03-07 14:09:00 20 /min [facility] Body height 2023-03-07 14:09:00 [facility].6 [facility] Body weight 2023-03-07 14:09:00 [facility].256 [facility] BMI 2023-03-07 14:09:00 19.40 kg/m2 [facility] Oxygen saturation in Arterial blood by Pulse oximetry 2023-03-07 14:09:00 95 /min [facility] Systolic blood pressure 2022-12-14 20:03:00 109 mm[Hg] [facility] Diastolic blood pressure 2022-12-14 20:03:00 67 mm[Hg] [facility] Heart rate 2022-12-14 20:03:00 64 /min [facility] Respiratory rate 2022-12-14 20:03:00 18 /min [facility] Body height 2022-12-14 20:03:00 157.5 cm [facility] Body weight 2022-12-14 20:03:00 52.254 kg [facility] BMI 2022-12-14 20:03:00 21.07 kg[facility]m2 [facility] saturation in Arterial blood by Pulse oximetry 2022-12-14 20:03:00 94 /min [facility] Systolic blood pressure 2022-10-12 18:35:00 103 mm[Hg] [facility] Diastolic blood pressure 2022-10-12 18:35:00 66 mm[Hg] [facility] Heart rate 2022-10-12 18:35:00 83 /min [facility] Body temperature 2022-10-12 18:35:00 35.78 Yasmeen [facility] Respiratory rate 2022-10-12 18:35:00 18 /min [facility] Body height 2022-10-12 18:35:00 157.5 cm [facility] Body weight 2022-10-12 18:35:00 53.252 kg [facility] BMI 2022-10-12 18:35:00 21.47 kg/m2 [facility] Oxygen saturation in Arterial blood by Pulse oximetry 2022-10-12 18:35:00 98 /min [facility] Systolic blood pressure 2022-09-28 18:34:00 104 mm[Hg] [facility] Diastolic blood pressure 2022-09-28 18:34:00 65 mm[Hg] [facility] Heart rate 2022-09-28 18:34:00 60 /min [facility] Body temperature 2022-09-28 18:34:00 37.22 Yasmeen [facility] Respiratory rate 2022-09-28 18:34:00 18 /min [facility] Body height 2022-09-28 18:34:00 157.5 cm [facility] Body weight 2022-09-28 18:34:00 53.524 kg [facility] BMI 2022-09-28 18:34:00 21.58 kg/m2 [facility] Oxygen saturation in Arterial blood by Pulse oximetry 2022-09-28 18:34:00 97 /min [facility] Systolic blood pressure 2022-08-31 20:02:00 115 mm[Hg] [facility] Diastolic blood pressure 2022-08-31 20:02:00 67 mm[Hg] [facility] Heart rate 2022-08-31 20:02:00 75 /min [facility] Respiratory rate 2022-08-31 20:02:00 17 /min [facility] Body height 2022-08-31 20:02:00 157.5 cm [facility] Body weight 2022-08-31 20:02:00 55.792 [facility] BMI 2022-08-31 20:02:00 22.50 kg/m2 [facility] Oxygen saturation in Arterial blood by Pulse oximetry 2022-08-31 20:02:00 99 /min [facility] Systolic blood pressure 2022-07-30 22:05:00 96 mm[Hg] [facility] Diastolic blood pressure 2022-07-30 22:05:00 61 mm[Hg] [facility] Heart rate 2022-07-30 22:05:00 68 /min [facility] Body temperature 2022-07-30 22:05:00 36.61 Yasmeen [facility] Respiratory rate 2022-07-30 22:05:00 18 /min [facility] Body height 2022-07-30 22:05:00 157.5 cm [facility] Body weight 2022-07-30 22:05:00 55.792 kg [facility] BMI 2022-07-30 22:05:00 22.50 kg/m2 [facility] Systolic blood pressure 2022-05-31 20:11:00 121 mm[Hg] [facility] Diastolic blood pressure 2022-05-31 20:11:00 73 mm[Hg] [facility] Heart rate 2022-05-31 20:11:00 67 /min [facility] Body temperature 2022-05-31 20:11:00 36.61 Yasmeen [facility] Respiratory rate 2022-05-31 20:11:00 18 /min [facility] Body height 2022-05-31 20:11:00 157.5 cm [facility] Body weight 2022-05-31 20:11:00 54.432 kg [facility] BMI 2022-05-31 20:11:00 21.95 kg/m2 [facility] Systolic blood pressure 2022-05-13 21:15:00 125 mm[Hg] [facility] Diastolic blood pressure 2022-05-13 21:15:00 69 mm[Hg] [facility] Heart rate 2022-05-13 21:15:00 75 /min [facility] Respiratory rate 2022-05-13 21:15:00 18 /min [facility] Oxygen saturation in Arterial blood by Pulse oximetry 2022-05-13 21:15:00 97 /min [facility] Body temperature 2022-05-13 18:45:00 36 Yasmeen [facility] Body height 2022-05-13 18:44:00 157.5 cm [facility] Body weight 2022-05-13 18:44:00 56.246 kg [facility] BMI 2022-05-13 18:44:00 22.68 kg/m2 [facility] Systolic blood pressure 2022-04-30 18:02:00 102 mm[Hg] [facility] Diastolic blood pressure 2022-04-30 18:02:00 57 mm[Hg] [facility] Heart rate 2022-04-30 18:02:00 65 /min [facility] Respiratory rate 2022-04-30 18:02:00 17 /min [facility] Oxygen saturation in Arterial blood by Pulse oximetry 2022-04-30 18:02:00 94 /min [facility] Body temperature 2022-04-30 15:14:00 36.44 Yasmeen [facility] Body height 2022-04-16 18:39:00 157.5 cm [facility] Body weight 2022-04-16 18:39:00 55.8 kg [facility] BMI 2022-04-16 18:39:00 22.49 kg/m2 [facility] Systolic blood pressure 2022-04-30 12:37:00 123 mm[Hg] [facility] Diastolic blood pressure 2022-04-30 12:37:00 57 mm[Hg] [facility] Heart rate 2022-04-30 12:37:00 67 /min [facility] Body temperature 2022-04-30 12:37:00 36.22 Yasmeen [facility] Respiratory rate 2022-04-30 12:37:00 18 /min [facility] Oxygen saturation in Arterial blood by Pulse oximetry 2022-04-30 12:37:00 97 /min [facility] Body height 2022-04-16 18:39:00 157.5 cm [facility] Body weight 2022-04-16 18:39:00 55.8 kg [facility] BMI 2022-04-16 18:39:00 22.49 kg/m2 [facility] Systolic blood pressure 2022-04-05 19:31:00 100 mm[Hg] [facility] Diastolic blood pressure 2022-04-05 19:31:00 63 mm[Hg] [facility] Heart rate 2022-04-05 19:31:00 79 /min [facility] Body temperature 2022-04-05 19:31:00 36.67 Yasmeen [facility] Respiratory rate 2022-04-05 19:31:00 18 /min [facility] Body weight 2022-04-05 19:31:00 55.792 kg [facility] BMI 2022-04-05 19:31:00 22.50 kg/m2 [facility] Oxygen saturation in Arterial blood by Pulse oximetry 2022-04-05 19:31:00 98 /min [facility] Systolic blood pressure 2022-03-31 15:30:00 114 mm[Hg] [facility] Diastolic blood pressure 2022-03-31 15:30:00 60 mm[Hg] [facility] Heart rate 2022-03-31 15:30:00 62 /min [facility] Body temperature 2022-03-31 15:30:00 35.94 Yasmeen [facility] Respiratory rate 2022-03-31 15:30:00 17 /min [facility] Body weight 2022-03-31 15:30:00 56.609 kg [facility] BMI 2022-03-31 15:30:00 22.83 kg/m2 [facility] Oxygen saturation in Arterial blood by Pulse oximetry 2022-03-31 15:30:00 99 /min [facility] Systolic blood pressure 2022-03-12 13:30:00 122 mm[Hg] [facility] Diastolic blood pressure 2022-03-12 13:30:00 71 mm[Hg] [facility] Heart rate 2022-03-12 13:30:00 67 /min [facility] Body temperature 2022-03-12 13:30:00 36.72 Yasmeen [facility] Respiratory rate 2022-03-12 13:30:00 18 /min [facility] Body height 2022-03-12 13:30:00 157.5 cm [facility] Body weight 2022-03-12 13:30:00 56.337 kg [facility] BMI 2022-03-12 13:30:00 22.72 kg/m2 [facility] Oxygen saturation in Arterial blood by Pulse oximetry 2022-03-12 13:30:00 98 /min [facility] Heart Rate 2021-08-24 22:46:21 [facility] Rate 2021-08-24 22:46:21 [facility] Systolic (mm Hg) 2021-08-24 22:44:44 [facility] Diastolic (mm Hg) 2021-08-24 22:44:44 [facility] Heart Rate 2021-08-24 22:44:44 [facility] Heart Rate 2021-08-24 17:47:35 [facility] Rate 2021-08-24 17:47:35 [facility] Systolic (mm Hg) 2021-08-24 17:46:33 [facility] Diastolic (mm Hg) 2021-08-24 17:46:33 [facility]itory Rate 2021-08-24 14:19:50 [facility] Systolic (mm Hg) 2021-08-24 14:19:43 [facility] Diastolic (mm Hg) 2021-08-24 14:19:43 [facility] Temperature Oral (F) 2021-08-24 14:18:40 98.2 F [facility] Temperature Oral (F) 2021-08-24 09:59:27 98 F [facility] Systolic (mm Hg) 2021-08-24 09:59:23 [facility] Diastolic (mm Hg) 2021-08-24 09:59:23 [facility] Heart Rate 2021-08-24 09:59:23 [facility] Heart Rate 2021-08-24 07:51:55 [facility] Systolic (mm Hg) 2021-08-24 07:51:49 [facility] Diastolic (mm Hg) 2021-08-24 07:51:49 [facility] Heart Rate 2021-08-24 07:51:49 [facility] Temperature Oral (F) 2021-08-24 07:51:02 97.8 F [facility] Systolic (mm Hg) 2021-08-24 07:25:21 [facility] Diastolic (mm Hg) 2021-08-24 07:25:21 [facility] Temperature Oral (F) 2021-08-24 07:24:28 98.5 F [facility] Respitory Rate 2021-08-24 02:00:00 [facility]itory Rate 2021-08-24 01:00:00 [facility] Rate 2021-08-24 00:03:00 [facility] Height 2021-08-21 23:13:00 157.48 cm [facility] Weight 2021-08-21 23:13:00 [facility] BMI Calculated 2021-08-21 23:13:00 [facility] Procedures Procedure Date / Time Performed Performing Clinician Source PNEUMOCOCCAL 20 CONJUGATE (PREVNAR 20) VACCINE 2023-03-07 15:25:07 Jacob Whitley [facility] POCT URINALYSIS 2022-09-28 18:37:00 Alok Aquino [facility] DISCLOSURE AND CONSENT, MEDICAL AND SURGICAL PROCEDURES 2022-09-28 05:01:00 Doctor Unassigned, [place] [facility] PATIENT FINANCIAL POLICY 2022-08-31 19:32:53 Doctor Unassigned, [place] [facility] URINE CULTURE 2022-07-30 22:15:00 [facility]ok [facility] POCT URINALYSIS W/O SPECIFIC GRAVITY 2022-07-30 22:13:00 Alok Aquino [facility] ASSIGNMENT OF BENEFITS 2022-07-30 21:10:46 Docto r Unassigned, [place] [facility] BI US GUIDED CORE BREAST BIOPSY LEFT 2022-06-01 21:32:00 Adum, Aixa Merritt [facility] BI JAVIER GUIDED CORE BREAST BIOPSY LEFT 2022-06-01 20:30:00 Aixa Friedman [facility] CT CERVICAL SPINE WO CONTRAST 2022-05-13 19:54:00 Fred Gastelum [facility] CT HEAD WO CONTRAST 2022-05-13 19:54:00 Michelle Gastelum [facility] CONSENT/REFUSAL FOR DIAGNOSIS AND TREATMENT 2022-05-13 18:41:43 Doctor Unassigned, [place] [facility] BI ULTRASOUND BREAST COMPLETE LEFT 2022-05-13 18:40:22 AdAixa truong [facility] BI DIAGNOSTIC TOMOSYNTHESIS BILATERAL 2022-05-13 18:06:17 AdAixa truong [facility] COLONOSCOPY (ENDO) 2022-04-30 13:18:01 Leela Holm [facility] COLONOSCOPY (ENDO) 2022-04-30 13:18:01 Leela Holm [facility] COLONOSCOPY 2022-04-30 13:13:00 Alecia Best [facility] FLU VACC ([id number]), 6 MO-64 YRS, .5ML, IM, QUAD (FLUCELVAX) 2022-03-31 15:39:51 Alicia Dailey [facility] AUTHORIZATION TO RELEASE PHI TO [facility] 2022-03-12 05:01:00 Doctor Unassigned, [place] [facility] Encounters Start Date/Time End Date/Time Encounter Type Admission Type Attending [facility] Facility Care Department Encounter ID Source 2023-01-12 09:43:32 Outpatient Addison TORREESTEPHANIAALECIA FARNSWORTH [facility] [id number] [facility] 2021-09-30 10:55:19 Outpatient CHRISTELLE JIMENEZ [facility] [id number] [facility] 2021-08-25 10:33:47 Outpatient BARBARA Sade [facility] [id number] [facility] 2024-02-09 00:00:00 2024-02-09 13:16:27 Refill Jacob Whitley [facility] 1.2.840.114 350.1.13.10 4.2.7.2.686 [id number] [facility] 2023-12-05 13:30:00 2023-12-05 13:30:00 Outpatient BILL KHOURYSAY [facility] [id number] [facility] 2023-11-28 00:00:00 2023-11-29 10:28:06 Telephone Jacob Whitley [facility] 1.2.840.114 350.1.13.10 4.2.7.2.686 [id number] [facility] 2023-11-24 00:00:00 2023-11-24 12:16:40 Telephone Jacob Whitley [facility] 1.2.840.114 350.1.13.10 4.2.7.2.686 [id number] [facility] 2023-11-04 00:00:00 2023-11-07 14:12:40 Refill Jacob Whitley [facility] 1.2.840.114 350.1.13.10 4.2.7.2.686 [id number] [facility] 2023-08-01 11:20:00 2023-08-01 11:20:00 Outpatient JAMILAH GOFF [facility] [id number] [facility] 2023-06-07 13:15:00 2023-06-07 13:15:00 Outpatient Addison TORREESTEPHANIAALECIA [facility] [id number] [facility] 2023-04-22 16:30:00 2023-04-22 17:00:00 Telemedici ne Visit Alok Aquino [facility] 1..840.114 350.1.13.10 4.2.7.2.686 [id number] [facility] 2023-04-22 16:30:00 2023-04-22 16:30:00 Outpatient ALOK VIVAS ELISHA [facility] [id number] [facility] 2023-04-15 16:00:00 2023-04-15 16:00:00 Outpatient ALOK VIVAS ELISHA [facility] [id number] [facility] 2023-03-28 00:00:00 2023-03-28 00:00:00 Letter (Out) Clinic, [facility] 1..840.114 350.1.13.10 4.2.7.2.686 [id number] [facility] 2023-03-21 00:00:00 2023-03-21 00:00:00 Telephone Jacob Whitley [facility] 1..840.114 350.1.13.10 4.2.7.2.686 [id number] [facility] 2023-03-17 11:56:14 2023-03-17 23:59:00 Outpatient JAMILAH GOFF [facility] [id number] [facility] 2023-03-17 11:56:14 2023-03-17 23:59:00 Hospital Encounter Jamilah Boyle [facility] 1.2840.114 350.1.13.10 4.2.7.2.686 [id number] [facility] 2023-03-08 10:00:00 2023-03-08 10:00:00 Outpatient TUSHAR AMADOR [facility] [id number] [facility] 2023-03-07 11:45:00 2023-03-07 12:00:00 Evaporator Helper Visit Pcp-Lab Jamilah Boyle [facility] 1.2840.114 350.1.13.10 4.2.7.2.686 [id number] [facility] 2023-03-07 09:30:00 2023-03-07 10:36:10 Outpatient R JAMILAH BOYLE [facility] [id number] [facility] 2023-03-07 09:30:00 2023-03-07 10:36:10 Office Visit Jacob Whitley Megan A [facility] 1.2840.114 350.1.13.10 4.2.7.2.686 [id number] [facility] 2023-02-03 00:00:00 2023-02-03 00:00:00 Telephone Amna Medranoeshan [facility] 1.2840.114 350.1.13.10 4.2.7.2.686 [id number] [facility] 2023-01-10 00:00:00 2023-01-10 00:00:00 Telephone Alecia Best [facility] 1.2840.114 350.1.13.10 4.2.7.2.686 [id number] [facility] 2023-01-06 00:00:00 2023-01-06 00:00:00 Telephone Alecia Best [facility] 1.2.840.114 350.1.13.10 4.2.7.2.686 [id number] [facility] 2022-12-14 14:45:00 2022-12-14 16:27:43 Outpatient R [facility] [id number] [facility] 2022-12-14 14:45:00 2022-12-14 16:27:43 Office Visit Estephania Alecia [facility] 1.2.840.114 350.1.13.10 4.2.7.2.686 [id number] [facility] 2022-12-14 00:00:00 2022-12-14 00:00:00 Telephone Keri Mejia [facility] 1.2.840.114 350.1.13.10 4.2.7.2.686 [id number] [facility] 2022-12-08 00:00:00 2022-12-08 00:00:00 Telephone Leslie Hall [facility] 1.2.840.114 350.1.13.10 4.2.7.2.686 [id number] [facility] 2022-12-06 00:00:00 2022-12-06 00:00:00 Telephone Allen Tapia [facility] 1.2.840.114 350.1.13.10 4.2.7.2.686 [id number] [facility] 2022-12-06 00:00:00 2022-12-06 00:00:00 Telephone Festus Barajas [facility] 1.2.840.114 350.1.13.10 4.2.7.2.686 [id number] [facility] 2022-12-04 00:00:00 2022-12-04 00:00:00 Aye Hercules [facility] OFF[facility] BUILD[facility] 1.2.840.114 350.1.13.10 4.2.7.2.686 [id number] [facility] 2022-12-01 00:00:00 2022-12-01 00:00:00 Telephone Daisha Abeba VEL[facility]oma [facility] 1.2.840.114 350.1.13.10 4.2.7.2.686 [id number] [facility] 2022-10-12 14:00:00 2022-10-12 14:08:45 Outpatient ALOK VIVASHCA [facility] [id number] [facility] 2022-10-12 14:00:00 2022-10-12 14:08:45 Office Visit Miles [facility] MEDICAL OFFICE BUILDING 1.2.840.114 350.1.13.10 4.2.7.2.686 [id number] [facility] 2022-10-01 00:00:00 2022-10-01 00:00:00 [facility] 1.2.840.114 350.1.13.10 4.2.7.2.686 [id number] [facility] 2022-09-28 13:00:00 2022-09-28 14:50:06 Outpatient R [facility] [id number] [facility] 2022-09-28 13:00:00 2022-09-28 14:50:06 [facility] 1.2.840.114 350.1.13.10 4.2.7.2.686 [id number] [facility] 2022-09-28 14:00:00 2022-09-28 14:00:00 [facility] [id number] [facility] 2022-09-28 00:00:00 2022-09-28 00:00:00 Orders Only Doctor Unassigned, [place] [facility] 1.2.840.114 350.1.13.10 4.2.7.2.686 [id number] [facility] 2022-09-23 00:00:00 2022-09-23 00:00:00 [facility] 1.2840.114 350.1.13.10 4.2.7.2.686 [id number] [facility] 2022-09-22 16:00:00 2022-09-22 16:15:00 Evaporator Helper Visit Lab, [facility] 1.840.114 350.1.13.10 4.2.7.2.686 [id number] [facility] 2022-09-22 16:00:00 2022-09-22 16:00:00 Outpatient ALOK VIVASHCA [facility] [id number] [facility] 2022-09-20 16:30:00 2022-09-20 16:30:00 Outpatient JESSICA VIVASHA [facility] [id number] [facility] 2022-09-20 00:00:00 2022-09-20 00:00:00 Telephone Miles [facility] MEDICAL OFFICE BUILDING 1.2840.114 350.1.13.10 4.2.7.2.686 [id number] [facility] 2022-09-16 00:00:00 2022-09-16 00:00:00 [facility] 1.2840.114 350.1.13.10 4.2.7.2.686 [id number] [facility] 2022-09-02 00:00:00 2022-09-02 00:00:00 [facility] 1.2.840.114 350.1.13.10 4.2.7.2.686 [id number] [facility] 2022-08-31 14:00:00 2022-08-31 14:46:09 Outpatient R MILES [facility] [id number] [facility] 2022-08-31 14:00:00 2022-08-31 14:46:09 Office Visit [facility] MEDICAL OFFICE BUILDING 1.2.840.114 350.1.13.10 4.2.7.2.686 [id number] [facility] 2022-08-31 00:00:00 2022-08-31 00:00:00 Orders Only Doctor Unassigned, [place] [facility] 1.2.840.114 350.1.13.10 4.2.7.2.686 [id number] [facility] 2022-08-23 00:00:00 2022-08-23 00:00:[facility] 1.2.840.114 350.1.13.10 4.2.7.2.686 [id number] [facility] 2022-08-19 12:00:00 2022-08-19 12:15:00 Evaporator Helper Visit Lab, [facility] 1.2840.114 350.1.13.10 4.2.7.2.686 [id number] [facility] 2022-08-19 12:00:00 2022-08-19 12:00:00 Outpatient R MILESHCA [facility] [id number] [facility] 2022-08-03 00:00:00 2022-08-03 00:00:00 Refill [facility] BU[facility] 1.840.114 350.1.13.10 4.2.7.2.686 [id number] [facility] 2022-07-30 15:30:00 2022-07-30 16:21:01 Outpatient R ALOK AQUINO [facility] [id number] [facility] 2022-07-30 15:30:00 2022-07-30 16:21:01 Office Visit [facility] BUILDING 1..840.114 350.1.13.10 4.2.7.2.686 [id number] [facility] 2022-07-30 00:00:00 2022-07-30 00:00:00 Orders Only Doctor Unassigned, [place] [facility] 1.840.114 350.1.13.10 4.2.7.2.686 [id number] [facility] 2022-07-09 14:00:00 2022-07-09 14:00:00 Outpatient R ALOK AQUINO [facility] [id number] [facility] 2022-06-01 13:23:05 2022-06-01 23:59:00 Hospital Encounter Aixa truong [facility] 1.840.114 350.1.13.10 4.2.7.2.686 [id number] [facility] 2022-06-01 13:22:39 2022-06-01 13:22:00 [id number] 2022-06-01 13:00:00 2022-06-01 13:22:00 Hospital Encounter dionne Aixa [facility] AT [facility] 1.2.840.114 350.1.13.10 4.2.7.2.686 [id number] [facility] 2022-05-31 14:00:00 2022-05-31 15:09:48 Outpatient R ALOK AQUINO [facility] [id number] [facility] 2022-05-31 14:00:00 2022-05-31 15:09:48 Office Visit Alok Aquino [facility] 1.2.840.114 350.1.13.10 4.2.7.2.686 [id number] [facility] 2022-05-19 00:00:00 2022-05-19 00:00:00 Aye Hercules [facility] OFFICE BUILDING 1.2.840.114 350.1.13.10 4.2.7.2.686 [id number] [facility] 2022-05-13 12:45:00 2022-05-13 15:39:00 Emergency X NIRAV [facility] E[facility] [id number] [facility] 2022-05-13 12:45:00 2022-05-13 15:39:00 Emergency Fred Gastelum [facility] ([facility]) 1.2.840.114 350.1.13.10 4.2.7.2.686 [id number] [facility] 2022-05-13 10:48:39 2022-05-13 12:44:00 Hospital Encounter Aixa Friedman [facility] 1.2.840.114 350.1.13.10 4.2.7.2.686 [id number] [facility] 2022-05-13 10:48:18 2022-05-13 12:44:00 Outpatient R AIXA FRIEDMAN [facility] [id number] [facility] 2022-05-13 10:48:18 2022-05-13 12:44:00 Hospital Encounter Aixa Friedman [facility] 1.20.114 350.1.13.10 4.2.7.2.686 [id number] [facility] 2022-05-06 00:00:00 2022-05-06 00:00:00 Telephone Alok Aquino [facility] 1.2840.114 350.1.13.10 4.2.7.2.686 [id number] [facility] 2022-05-04 09:00:00 2022-05-04 09:00:00 Outpatient AIXA WADE [facility] RAD [id number] [facility] 2022-05-04 00:00:00 2022-05-04 00:00:00 Telephone Alecia Best [facility] 1.0.114 350.1.13.10 4.2.7.2.686 [id number] [facility] 2022-05-03 13:30:00 2022-05-03 13:30:00 Outpatient R ALOK AQUINO [facility] [id number] [facility] 2022-04-30 07:08:00 2022-04-30 13:11:00 Outpatient R ALECIA BEST [facility] [id number] [facility] 2022-04-30 07:08:00 2022-04-30 13:11:00 Hospital Encounter Estephania Alecia [facility] [place] 1.20.114 350.1.13.10 4.2.7.2.686 [id number] [facility] 2022-04-30 08:28:00 2022-04-30 09:41:00 Surgery Estephania [facility] [place] 1.2840.114 350.1.13.10 4.2.7.2.686 [id number] [facility] 2022-04-20 14:40:00 2022-04-20 14:40:00 Outpatient R ALICIA DAILEY [facility] [id number] [facility] 2022-04-20 00:00:00 2022-04-20 00:00:00 Outpatient R AIXA FRIEDMAN [facility] [id number] [facility] 2022-04-14 00:00:00 2022-04-14 00:00:00 Allen Liu [facility] MEDICAL OFFICE BUILDING 1.2.840.114 350.1.13.10 4.2.7.2.686 [id number] [facility] 2022-04-05 13:30:00 2022-04-05 14:35:23 Outpatient R ALOK AQUINO [facility] [id number] [facility] 2022-04-05 13:30:00 2022-04-05 14:35:23 Office Visit Alok Aquino [facility] BUILDING 1..840.114 350.1.13.10 4.2.7.2.686 [id number] [facility] 2022-03-31 10:20:00 2022-03-31 10:49:27 Outpatient R ALICIA DAILEY [facility] [id number] [facility] 2022-03-31 10:20:00 2022-03-31 10:49:27 [facility] 1.2.840.114 350.1.13.10 4.2.7.2.686 [id number] [facility] 2022-03-12 08:45:00 2022-03-12 09:42:40 Office Visit Gaby Holm [facility] BUILDING 1.2.840.114 350.1.13.10 4.2.7.2.686 [id number] [facility] 2022-03-12 08:45:00 2022-03-12 09:42:40 Outpatient R GABY HOLM [facility] [id number] [facility] 2022-03-12 08:45:00 2022-03-12 08:45:00 [facility] [id number] [facility] 2022-03-12 00:00:00 2022-03-12 00:00:00 Orders Only Doctor Unassigned, [place] [facility] 1..840.114 350.1.13.10 4.2.7.2.686 [id number] [facility] 2022-03-02 11:15:00 2022-03-02 11:15:00 [facility] [id number] [facility] 2022-02-19 10:00:00 2022-02-19 10:00:00 [facility]patient [facility] [id number] [facility] 2022-02-11 00:00:00 2022-02-11 00:00:00 Refill Alok Aquino [facility] 1.2.840.114 350.1.13.10 4.2.7.2.686 [id number] [facility] 2022-02-08 13:00:00 2022-02-08 13:34:41 [facility] [id number] [facility] 2022-02-08 13:00:00 2022-02-08 13:34:41 Office Visit Alok Aquino [facility] 1.2.840.114 350.1.13.10 4.2.7.2.686 [id number] [facility] 2022-02-08 13:00:00 2022-02-08 13:34:41 Outpatient R ALOK AQUINO [facility] [id number] [facility] 2022-02-01 00:00:00 2022-02-01 00:00:00 Outpatient R AIXA FRIEDMAN [facility] [id number] [facility] 2022-02-01 00:00:00 2022-02-01 00:00:00 Telephone Elder Aix[facility] 1.2.840.114 350.1.13.10 4.2.7.2.686 [id number] [facility] 2022-01-29 00:00:00 2022-01-29 00:00:00 Refill Alok [facility] 1.2.840.114 350.1.13.10 4.2.7.2.686 [id number] [facility] 2022-01-22 11:00:00 2022-01-22 12:00:03 Outpatient R ALOK AQUINO [facility] [id number] [facility] 2022-01-22 11:00:00 2022-01-22 12:00:03 Office Visit Alok Aquino [facility] BUILDING 1.2.840.114 350.1.13.10 4.2.7.2.686 [id number] [facility] 2022-01-22 11:00:00 2022-01-22 11:00:00 Outpatient R ALOK AQUINO [facility] [id number] [facility] 2022-01-19 15:00:00 2022-01-19 16:31:26 Outpatient R AIXA FRIEDMAN [facility] [id number] [facility] 2022-01-19 15:00:00 2022-01-19 16:31:26 Office Visit RemigioAixa truong René [facility] BUILDING 1..840.114 350.1.13.10 4.2.7.2.686 [id number] [facility] 2021-12-29 13:30:00 2021-12-29 13:30:00 Outpatient AIXA WADE [facility] [id number] [facility] 2021-11-26 00:00:00 2021-11-26 00:00:00 Telephone Abeba Ashton 1..840.114 350.1.13.10 4.2.7.2.686 [id number] [facility] 2021-11-24 14:17:22 2021-11-24 23:59:00 Outpatient ALLEN BUTLER [facility] [id number] [facility] 2021-11-24 14:00:00 2021-11-24 23:59:00 Hospital Encounter Allen Tapia [facility] 1..840.114 350.1.13.10 4.2.7.2.686 [id number] [facility] 2021-10-28 15:30:00 2021-10-28 17:39:15 Outpatient ALLEN BUTLER [facility] [id number] [facility] 2021-10-28 15:30:00 2021-10-28 17:39:15 Office Visit Allen Tapia [facility] MEDICAL OFFICE BUILDING 1..840.114 350.1.13.10 4.2.7.2.686 [id number] [facility] 2021-10-20 04:57:00 2021-10-20 04:57:00 Outpatient KIT SADLER [id number] Parminderagoaddison torre [facility] Program 2021-10-12 11:00:00 2021-10-12 11:50:40 Outpatient ERENDIRA PRATT [facility] [id number] [facility] 2021-10-12 11:00:00 2021-10-12 11:50:40 Office Visit Keri Mejia Unknown, Attending [facility] PRIMARY CARE PAVILLION 1.2.840.114 350.1.13.10 4.2.7.2.686 [id number] [facility] 2021-10-12 11:00:00 2021-10-12 11:50:40 Outpatient R [facility] [id number] [facility] 2021-10-12 11:00:00 2021-10-12 11:50:40 Outpatient R [facility] [id number] [facility] 2021-09-28 00:00:00 2021-09-28 00:00:00 Telephone Allen Tapia [facility] 1.2.840.114 350.1.13.10 4.2.7.2.686 [id number] [facility] 2021-09-18 00:00:00 2021-09-18 00:00:00 Telephone Uriel Luciano [facility] 1.2.840.114 350.1.13.10 4.2.7.2.686 [id number] [facility] 2021-09-16 00:00:00 2021-09-16 00:00:00 Transition of Care Yamilka Cuenca 1.2.840.114 350.1.13.10 4.2.7.2.686 [id number] [facility] 2021-09-04 11:03:00 2021-09-15 20:50:00 Inpatient X RYNE TANG [facility] FE [id number] [facility] 2021-09-04 11:03:00 2021-09-15 20:50:00 Hospital Faisal Awan, Aman Tang, Ryne [facility] 1.2840.114 350.1.13.10 4.2.7.2.686 [id number] [facility] 2021-09-15 10:40:00 2021-09-15 13:20:00 Surgery Anesthesiol [facility] 1.2840.114 350.1.13.10 4.2.7.2.686 [id number] [facility] 2021-09-04 11:00:00 2021-09-04 11:00:00 Outpatient SUNNY NYE [facility] [id number] [facility] 2021-09-04 11:00:00 2021-09-04 11:00:00 Outpatient SUNNY NYE [facility] [id number] [facility] 2021-09-03 00:00:00 2021-09-03 00:00:00 Telephone Allen Tapia [facility] MEDICAL OFFICE BUILDING 1.2840.114 350.1.13.10 4.2.7.2.686 [id number] [facility] 2021-09-02 00:00:00 2021-09-02 00:00:00 Nurse Triage Afia Bajwa [facility] 1.2840.114 350.1.13.10 4.2.7.2.686 [id number] [facility] 2021-09-02 00:00:00 2021-09-02 00:00:00 Telephone Allen Tapia [facility] MEDICAL OFFICE BUILDING 1.2840.114 350.1.13.10 4.2.7.2.686 [id number] [facility] 2021-08-31 12:30:00 2021-08-31 12:30:00 Outpatient ALLEN BUTLER [facility] [id number] [facility] 2021-08-21 18:02:00 2021-08-24 23:33:00 Inpatient Amado pfeiffer [facility] [id number] Inga merritt [facility] 2021-08-24 08:49:00 2021-08-24 17:33:00 Inpatient E RENAN HOOD [facility] [id number] [facility] 2021-08-24 11:00:00 2021-08-24 11:00:00 Outpatient ALLEN BUTLER [facility] [id number] [facility] 2021-08-21 00:00:00 2021-08-21 23:59:00 Outpatient ABHINAV PATEL [facility] [id number] [facility] 2021-07-20 08:44:35 2021-07-20 23:59:00 Outpatient ALLEN BUTLER [facility] [id number] [facility] 2021-07-20 08:44:35 2021-07-20 23:59:00 Hospital Encounter Allen Tapia ann marie [facility] 1.2.840.114 350.1.13.10 4.2.7.2.686 [id number] [facility] 2021-07-20 11:00:00 2021-07-20 11:00:00 Outpatient R UNKNOWN, MITZI [facility] [id number] [facility] 2021-07-10 11:46:06 2021-07-10 23:59:00 Hospital Encounter Allen Tapia [facility] 1.2.840.114 350.1.13.10 4.2.7.2.686 [id number] [facility] 2021-07-10 11:43:38 2021-07-10 11:45:00 Hospital Encounter Allen Tapia [facility] 1.2.840.114 350.1.13.10 4.2.7.2.686 [id number] [facility] 2021-07-10 11:41:01 2021-07-10 11:42:00 Hospital Encounter Allen Tapia [facility] 1.2.840.114 350.1.13.10 4.2.7.2.686 [id number] [facility] 2021-07-10 11:38:55 2021-07-10 11:40:00 Outpatient R ALLEN TAPIA [facility] [id number] [facility] 2021-07-10 11:38:55 2021-07-10 11:40:00 Hospital Encounter Allen Tapia [facility] 1.2.840.114 350.1.13.10 4.2.7.2.686 [id number] [facility] 2021-07-10 11:34:34 2021-07-10 11:37:00 Hospital Encounter Allen Tapia [facility] 1.2.840.114 350.1.13.10 4.2.7.2.686 [id number] [facility] 2021-07-01 10:15:00 2021-07-01 10:30:00 Evaporator Helper Visit Draw, [facility] Allen Tapia [facility] MEDICAL OFFICE BUILDING 1.2840.114 350.1.13.10 4.2.7.2.686 [id number] [facility] 2021-07-01 10:15:00 2021-07-01 10:15:00 Outpatient R ALLEN TAPIA [facility] [id number] [facility] 2021-07-01 09:00:00 2021-07-01 10:09:21 Office Visit Allen Tapia [facility] MEDICAL OFFICE BUILDING 1.2.840.114 350.1.13.10 4.2.7.2.686 [id number] [facility] 2021-07-01 09:00:00 2021-07-01 10:09:21 Outpatient Addison TAPIAKRISTINEND [facility] [id number] [facility] 2021-05-26 09:30:00 2021-05-26 23:59:00 Hospital Encounter Jamilah Boyle [facility] 1.2.840.114 350.1.13.10 4.2.7.2.686 [id number] [facility] 2021-05-26 08:25:29 2021-05-26 09:29:00 Outpatient JAMILAH GOFF [facility] RAD [id number] [facility] 2021-05-26 08:25:29 2021-05-26 09:29:00 Hospital Encounter Jamilah Boyle [facility] 1.2.840.114 350.1.13.10 4.2.7.2.686 [id number] [facility] 2021-05-19 00:00:00 2021-05-19 00:00:00 Telephone Keri Mejia [facility] PRIMARY [facility]ARE PAVILLION 1.2.840.114 350.1.13.10 4.2.7.2.686 [id number] [facility] 2021-05-11 00:00:00 2021-05-11 00:00:00 Telephone Keri Mejia [facility] PAVILLION 1.2.840.114 350.1.13.10 4.2.7.2.686 [id number] [facility] 2021-05-07 00:00:00 2021-05-07 00:00:00 Telephone Keri Mejia [facility] PAVILLION 1.2.840.114 350.1.13.10 4.2.7.2.686 [id number] [facility] 2021-05-05 00:00:00 2021-05-05 00:00:00 Telephone [facility] 1.84.114 350.1.13.10 4.2.7.2.686 [id number] [facility] 2021-05-04 10:00:00 2021-05-04 23:59:00 Hospital Encounter BoyleJamilah [facility] 1..114 350.1.13.10 4.2.7.2.686 [id number] [facility] 2021-05-04 11:15:44 2021-05-04 12:37:06 Office Visit Keri Mejia Michael [facility]AVILL[facility] 1.84.114 350.1.13.10 4.2.7.2.686 [id number] [facility] 2021-05-04 11:00:00 2021-05-04 12:37:06 Outpatient BRADLY BOBBY [facility] [id number] [facility] 2021-05-04 08:30:00 2021-05-04 09:59:00 Hospital Encounter Jamilha Boyle [facility] 1.284.114 350.1.13.10 4.2.7.2.686 [id number] [facility] 2021-05-04 08:30:00 2021-05-04 09:59:00 Outpatient R BOYLEJAMILAH [facility] [id number] [facility] 2021-04-23 00:00:00 2021-04-23 00:00:00 Orders Only Doctor Unassigned, [place] [facility] 1.84.114 350.1.13.10 4.2.7.2.686 [id number] [facility] 2021-04-15 00:00:00 2021-04-15 00:00:00 Telephone Keri Mejia [facility] PAVILLION 1.2.840.114 350.1.13.10 4.2.7.2.686 [id number] [facility] 2021-04-08 09:03:18 2021-04-08 23:59:00 Hospital Encounter Jamilah Boyle [facility] 1.2.840.114 350.1.13.10 4.2.7.2.686 [id number] [facility] 2021-04-08 09:00:00 2021-04-08 09:02:00 Hospital Encounter Jamilah Boyle [facility] 1.2.840.114 350.1.13.10 4.2.7.2.686 [id number] [facility] 2021-04-08 00:00:00 2021-04-08 00:00:00 Outpatient R JAMILAH BOYLE [facility] [id number] [facility] 2021-04-08 00:00:00 2021-04-08 00:00:00 Telephone Keri Mejia [facility] 1.2.840.114 350.1.13.10 4.2.7.2.686 [id number] [facility] 2021-03-30 10:52:19 2021-03-30 12:26:46 Office Visit Keri Mejia Unknown, Attending Jamilah Boyle [facility] PR[facility] CARE PAVILLION 1.2.840.114 350.1.13.10 4.2.7.2.686 [id number] [facility] 2021-03-30 11:00:00 2021-03-30 11:00:00 Outpatient R [facility] [id number] [facility] 2021-03-30 00:00:00 2021-03-30 00:00:00 Orders Only Doctor Unassigned, [place] [facility] 1.2.840.114 350.1.13.10 4.2.7.2.686 [id number] [facility] 2021-02-06 10:20:00 2021-02-06 10:20:00 [facility] [id number] [facility] 2021-01-16 10:20:00 2021-01-16 10:20:00 Outpatient Addison [facility] [id number] [facility] 2004-03-18 08:30:00 2004-03-23 12:30:00 Inpatient R Olena RIOS [facility] [id number] [facility] Results Test Description Test Time Test Comments Results Result Co mments Source [facility] W SPECIFIC [id number] 18:37:00* Test Item Value Reference Range Interpretation Comme nts POCT U SP GRAV (test code = 3255) 1.025 mg/dl 1.005-1.025 POCT PH U (test code = 3254) 5 mg/dl 5-8 POCT U LEUK EST (test code = 3263) NEG Negative - Negative POCT U NIT (test code = 3262) NEG Negative - Negati ve POCT U PROT (test code = 3259) NEG Negative - Negative POCT U GLU (test code = 3256) NORMAL Negative - Negati ve POCT U KETONE (test code = 3258) NEG Negative - Negative POCT U UROBILI (test code = 3260) NEG 0.2-1 POCT U BILI (test code = 3261) NEG Negative - Negative POCT U BLD (test code = 3257) NEG Negative - Negati ve POCT U COLOR (test code = 3266) YELLOW POCT U APPEAR (test code = 3267) HAZY Lab Interpretation (test cod e = 28941-0) Normal [facility] W/O SPECIFIC [id number] 22:15:00* Test Item Value Reference Range Interpretation Comme nts POCT PH U (test code = 3254) 6 mg/dl 5-8 POCT U LEUK EST (test code = 3263) ++ Negative - Negative POCT U NIT (test code = 3262) positive Negative - Negati ve POCT U PROT (test code = 3259) negative Negative - Negat manuel POCT U GLU (test code = 3256) negative Negative - Negati ve POCT U KETONE (test code = 3258) negative Negative - Neg ative POCT U BLD (test code = 3257) negative Negative - Negati ve [facility] W/O SPECIFIC [id number] 22:15:00* Test Item Value Reference Range Interpretation Comme nts POCT PH U (test code = 3254) 6 mg/dl 5-8 POCT U LEUK EST (test code = 3263) ++ Negative - Negative POCT U NIT (test code = 3262) positive Negative - Negati ve POCT U PROT (test code = 3259) negative Negative - Negat manuel POCT U GLU (test code = 3256) negative Negative - Negati ve POCT U KETONE (test code = 3258) negative Negative - Neg ative POCT U BLD (test code = 3257) negative Negative - Negati ve [facility] W/O SPECIFIC [id number] 22:15:00* Test Item Value Reference Range Interpretation Comme nts POCT PH U (test code = 3254) 6 mg/dl 5-8 POCT U LEUK EST (test code = 3263) ++ Negative - Negative POCT U NIT (test code = 3262) positive Negative - Negati ve POCT U PROT (test code = 3259) negative Negative - Negat manuel POCT U GLU (test code = 3256) negative Negative - Negati ve POCT U KETONE (test code = 3258) negative Negative - Neg ative POCT U BLD (test code = 3257) negative Negative - Negati ve [facility] [id number] 06:05:00* Test Item Value Reference Range Interpretation Comme nts Glucose Lvl (test code = Glucose Lvl) 101 70-99 [id number] 06:05:00* Test Item Value Reference Range Interpretation Comme nts Segs (test code = Segs) 60.1 45.0-75.0 [id number] 19:55:00* Test Item Value Reference Range Interpretation Comme nts Albumin % (test code = Albumin %) 52.4 55.8-66.1 [facility] [id number] 05:46:00* Test Item Value Reference Range Interpretation Comme nts Basophils # (test code = Basophils #) 0.1 <=0.2 [facility] [id number] 05:46:00* Test Item Value Reference Range Interpretation Comme nts Glucose Lvl (test code = Glucose Lvl) 100 70-99 [facility] [id number] 10:50:00* Test Item Value Reference Range Interpretation Comme nts Total Protein (test code = T otal Protein) 7.0 6.4-8.4 [facility] [id number] 10:50:00* Test Item Value Reference Range Interpretation Comme nts [place] (asya t code = [place]) 11.7 [facility] [id number] 21:58:00* Test Item Value Reference Range Interpretation Comme nts U Amph Scr (test code = U Amph Scr) Negative *NA*(08/21/21 3:58 PM) [facility] [id number] 19:31:00* Test Item Value Reference Range Interpretation Comme nts Glucose Lvl (test code = Glucose Lvl) 88 70-99 [facility]20[facility]36 19:31:00* Test Item Value Reference Range Interpretation Comme nts WBC X 10x3 (test code = WBC X 10x3) 10.1 3.7-10.4 [facility]ed[facility]FUNTM8910-52-35 19:31:00* Test Item Value Reference Range Interpretation Comme nts Trig (test code = Trig) 113 [facility]SPE[facility] [id number] 19:31:00* Test Item Value Reference Range Interpretation Comme nts Hgb A1C (test code = Hgb A1C) 5.1 [facility] [id number] 19:28:54* Test Item Value Reference Range Interpretation Comme nts Coronavirus (COVID-19) NAVARRO (test code = Coronavirus (COVID-19) NAVARRO) Not Detected (08/21/21 1:28 PM) [facility]AC [id number] 18:40:53* Test Item Value Reference Range Interpretation Comme nts Total CK (test code = Total CK) 160 12-191 [facility] TempleVmbwbfqUKRXZNXZMI2729-06-94 18:40:53* Test Item Value Reference Range Interpretation Comme nts PT (test code = PT) 12.9 s 12.0-14.7 [facility] Notes Date/Time Note Provider Source 2023-11-29 10:17:53 RAFFAELE 03/07/2023 NOV: one was no show and other cancelled Patient will need to be seen in clinic for Lacosamide refill. Resent RX. CAlled patient to advise of needing to be scheduled for other refill, no answer, no voicemail set up Satish Blackburn LVN 11/29/2023 10:26 AM [facility] 2023-11-28 12:57:54 Azeb Donaldson is a 62 year old female spouse calling says RX was sent to wrong pharmacy. Please send Aspirin-Dipyridamole 25-200 mg to correct pharmacy. Patient also needing refill on Lacosamide 100 mg. Please call [phone] [place] [id number] Sue Bajwa [facility] 2023-11-24 12:15:34 Called patient and patient's spouse numbers, both do not have voicemail box set up. Need to confirm if they are really needing refill. Last RX was prescribed on 11/06/2023 w/90 tablets. Satish Blackburn LVN 11/24/2023 12:16 PM Satish Blackburn LVN [facility] 2023-11-24 11:19:47 Azeb Donaldson is a 62 year old female Pt is needing refill for aspirin-dipyridamole 25-200 mg per 12 hr capsule. Pt spouse states he received a notification from [facility] but to far from house and not able to get it. [address] Hope Lopez [facility] 2023-11-06 10:25:53 Medication was refilled x 1, but an appointment is needed for additional refills. [facility] 2023-11-04 09:16:00 Refill Authorization ASA/Dipyrida [id number] Irma Thompson [facility] 2023-03-07 11:45:00 Formatting of this n ote might be different from the original. Patient wasn't fasting. Patient will be back tomorrow morning. Bekah Nash [facility] 2023-02-03 11:47:22 Formatting of this n ote might be different from the original. Called patient and left voicemail informing we do not have a schedule for Dr. Medrano at this time. We have placed her on our scheduling list to call when available. Amy Hendrix [facility] 2023-02-03 09:41:51 Formatting of this n ote might be different from the original. Azeb Donaldson is a 62 year old femalep Spouse Collin calling to get another appt shon for patient. They're unable to make tomorrow's appt. Pls call. Deborah Johnson [facility] 2021-08-22 16:25:55 EXAM: MRI BRAIN WITH OUT CONTRAST DATE: 08/21/2021 15:56 [employer] AIDE INDICATION: - Left facial droop and dysarthria COMPARISON: Brain CT dated 08/22/2021 TECHNIQUE: Abbreviated stroke protocol including axial flair, axial DWI, and axial gradient echo images was acquired. Arterial spin labeling noncontrast MR perfusion sequences were included. FINDINGS: Restricted diffusion consistent with acute infarct is identified in the right putamen and tapia radiata. T2 signal changes are present in this region. Confluent microvascular ischemic changes in the periventricular and subcortical white matter are identified, with multiple scattered microhemorrhages in the cerebrum and cerebellum. The ventricles and sulci are prominent. Pseudo continuous arterial spin labeling fails to demonstrate any focal regional perfusion defects. The known subdural collections in both cerebral convexity are again demonstrated, without significant mass effect. Right parietal craniotomy is again demonstrated. The majority of the known calvarial lesions do not demonstrate restricted diffusion. There is restricted diffusion consistent with high cellularity in one of the dominant radiolucent lesions in the left parietal lobe (series 201, image 280). IMPRESSION: 1. Acute infarct in the right putamen and tapia radiata. 2. Chronic microvascular ischemic changes with microhemorrhages. 3. Small bilateral subdural collections without mass effect. 4. Left parietal calvarial lesion with restricted diffusion, consistent with high cellularity. This could be secondary to multiple myeloma or metastasis. [facility] 2021-08-22 16:25:55 EXAM: MRI BRAIN WITHOUT CONTRAST DATE: 08/21/2021 15:56 [employer] AIDE INDICATION: - Left facial droop and dysarthria COMPARISON: Brain CT dated 08/22/2021 TECHNIQUE: Abbreviated stroke protocol including axial flair, axial DWI, and axial gradient echo images was acquired. Arterial spin labeling noncontrast MR perfusion sequences were included. FINDINGS: Restricted diffusion consistent with acute infarct is identified in the right putamen and tapia radiata. T2 signal changes are present in this region. Confluent microvascular ischemic changes in the periventricular and subcortical white matter are identified, with multiple scattered microhemorrhages in the cerebrum and cerebellum. The ventricles and sulci are prominent. Pseudo continuous arterial spin labeling fails to demonstrate any focal regional perfusion defects. The known subdural collections in both cerebral convexity are again demonstrated, without significant mass effect. Right parietal craniotomy is again demonstrated. The majority of the known calvarial lesions do not demonstrate restricted diffusion. There is restricted diffusion consistent with high cellularity in one of the dominant radiolucent lesions in the left parietal lobe (series 201, image 280). IMPRESSION: 1. Acute infarct in the right putamen and tapia radiata. 2. Chronic microvascular ischemic changes with microhemorrhages. 3. Small bilateral subdural collections without mass effect. 4. Left parietal calvarial lesion with restricted diffusion, consistent with high cellularity. This could be secondary to multiple myeloma or metastasis. [facility] 2021-08-22 09:43:36 EXAM: CT BRAIN WITHO UT CONTRAST DATE: 08/22/2021 8:41 [employer] AIDE INDICATION: - L SDH COMPARISON: None. TECHNIQUE: Axial CT images of the brain were obtained. Sagittal and coronal reformats. IV contrast: None. DLP: 694 mGy-cm FINDINGS: Redemonstration of mixed density subdural collections along the bilateral cerebral convexity and right more than left. The maximum width of the right-sided collection measures 8 mm, and maximum left-sided collection measures 3 mm. The size and appearance of these collections are grossly unchanged in the interval. No new intracranial hemorrhages. The appearance of the right posterior parietal cranioplasty is unchanged in the interval. Generalized volume loss and commiserate enlargement of the ventricles and sulci. IMPRESSION: Iso-to hypodense subdural collections along the bilateral cerebral convexities, right more than left , grossly unchanged in size and appearance. No new intracranial hemorrhages. Diffuse abnormalities of the skull base and calvarium again noted. Differential diagnosis would include Paget disease, or diffuse involvement by marrow process such as multiple myeloma. [facility] 2021-08-22 09:43:36 EXAM: CT BRAIN WITHO UT CONTRAST DATE: 08/22/2021 8:41 [employer] AIDE INDICATION: - L SDH COMPARISON: None. TECHNIQUE: Axial CT images of the brain were obtained. Sagittal and coronal reformats. IV contrast: None. DLP: 694 mGy-cm FINDINGS: Redemonstration of mixed density subdural collections along the bilateral cerebral convexity and right more than left. The maximum width of the right-sided collection measures 8 mm, and maximum left-sided collection measures 3 mm. The size and appearance of these collections are grossly unchanged in the interval. No new intracranial hemorrhages. The appearance of the right posterior parietal cranioplasty is unchanged in the interval. Generalized volume loss and commiserate enlargement of the ventricles and sulci. IMPRESSION: Iso-to hypodense subdural collections along the bilateral cerebral convexities, right more than left , grossly unchanged in size and appearance. No new intracranial hemorrhages. Diffuse abnormalities of the skull base and calvarium again noted. Differential diagnosis would include Paget disease, or diffuse involvement by marrow process such as multiple myeloma. [facility] 2021-08-21 13:48:00 EXAM: XR CHEST 1 VIE W DATE: 08/21/2021 1350 hours INDICATION: 60-year-old female presents [facility] for possible stroke, with initial symptoms of left facial droop and slurred speech. COMPARISON: None. TECHNIQUE: AP chest. FINDINGS: Lines, tubes and hardware: A loop recorder is seen overlying the mediastinum. Surgical clips are visualized in the left parahilar region. Lungs and pleura: The lungs are well-inflated and without focal consolidation. There are faint, streaky bibasilar opacities, greater on the right. The costophrenic sulci are sharp without effusion. No pneumothorax is identified on this semiupright radiograph. Heart and mediastinum: The heart size is normal. The mediastinal contours are normal. Bones and soft tissues: No acute abnormality. IMPRESSION: 1. Mild bibasilar subsegmental atelectasis, greater on the right. 2. Loop recorder overlying the mediastinum. [facility] 2021-08-21 13:48:00 EXAM: XR CHEST 1 VIEW DATE: 08/21/2021 1350 hours INDICATION: 60-year-old female presents [facility] for possible stroke, with initial symptoms of left facial droop and slurred speech. COMPARISON: None. TECHNIQUE: AP chest. FINDINGS: Lines, tubes and hardware: A loop recorder is seen overlying the mediastinum. Surgical clips are visualized in the left parahilar region. Lungs and pleura: The lungs are well-inflated and without focal consolidation. There are faint, streaky bibasilar opacities, greater on the right. The costophrenic sulci are sharp without effusion. No pneumothorax is identified on this semiupright radiograph. Heart and mediastinum: The heart size is normal. The mediastinal contours are normal. Bones and soft tissues: No acute abnormality. IMPRESSION: 1. Mild bibasilar subsegmental atelectasis, greater on the right. 2. Loop recorder overlying the mediastinum. [facility] 2021-08-21 12:00:00 EXAM: CT BRAIN WITHO UT CONTRAST DATE: 08/21/2021 12:28 [employer]IDE INDICATION: - weakness COMPARISON: None. TECHNIQUE: Routine axial CT images of the brain were obtained. IV contrast: None. DLP: 662i mGy-cm FINDINGS: Non-contrast images of the head demonstrate no edema, hemorrhage, mass lesion or other acute intracranial abnormality. Right posterior parietal cranioplasty with depressed/malalignment of the lateral edge into the cranium abutting the right posterior parietal lobe, appears to be chronic in nature A small isodense subdural collection along the right cerebral convexity measuring 7 mm in maximum width and an tiny collection along the left cerebral convexity. Areas of encephalomalacia within the right occipital lobe adjacent to the craniotomy with exvacuodilatation of the occipital horn of the lateral ventricle suggestive of chronic infarct/trauma. Mild to moderate generalized cerebral volume loss and commiserate enlargement of the ventricles and sulci as well as confluent periventricular and subcortical white matter hypodensities consistent with chronic microvascular ischemic changes. Diffuse permeative appearing calvarial bone without acute fracture. Sinuses are clear. Mastoid air cells are underdeveloped bilaterally ASPECTS: 10 Laterality: none Caudate: normal Internal capsule: normal Lenticular: normal Insula: normal M1: normal M2: normal M3: normal M4: normal M5: normal M6: normal The sinuses and skull base are unremarkable. IMPRESSION: 1. No evidence of acute territorial infarct. 2. An age indeterminant subdural hematoma along the right cerebral convexity measuring 7 mm in maximum width and a tiny subdural collection along the left cerebral convexity. 3. Malalignment of right posterior cranioplasty, appears to be chronic in nature. 4. Small right occipital lobe encephalomalacia consistent with chronic infarct/injury. 5. Generalized cerebral volume loss and chronic microvascular ischemic changes of the white matter. 6. Heterogeneous permeative lytic changes throughout the calvarium and skull base concerning for diffuse metastases versus myeloma. [facility] 2021-08-21 12:00:00 EXAM: CTA BRAIN EXAM: CTA NECK EXAM: CT PERFUSION BRAIN DATE: 08/21/2021 12:31 [employer] AIDE INDICATION: - left facial droop COMPARISON: CT brain without contrast August 21, 2021 TECHNIQUE: - Dynamic CT perfusion images on a limited area of the brain parenchyma are performed during bolus injection of iodinated contrast material. Color maps of relative cerebral blood flow, relative cerebral blood volume, time to peak, and mean transit time are created on an independent workstation and are submitted along with the source image data. -Rapid acquisition spiral CT images of the brain and neck were obtained between the aortic arch and the cranial vertex during intravenous infusion of iodinated contrast for the purposes of CT angiography. 3-D CT angiographic images are created using MIP technique at the acquisition workstation. The source images are also presented for interpretation. IV contrast: Refer to MAR/cardiac cath lab technologist documentation DLP: Refer to CT protocol form FINDINGS: NECK CTA: Aortic arch: The great vessels originate from the aortic arch in the standard configuration. No origin stenosis is identified. The vertebral artery origins are patent bilaterally. Carotid arteries: The cervical common carotid arteries and cervical internal carotid arteries have a normal course, caliber, and contour. There are areas of calcification at the carotid bifurcations. No hemodynamically significant stenosis of the carotid bifurcations or internal carotid arteries is present by NASCET criteria. There is no evidence of vascular injury. Vertebral arteries: The vertebral arteries have a normal course, caliber and contour. The soft tissues of the neck are normal. Groundglass opacities versus atelectasis is partially seen within the right upper lung. BRAIN CTA: Anterior circulation: Normal appearance and a standard branching pattern. There is a area of focal narrowing seen at the A4 segment of the right anterior indicating artery (series 912, image 77). Posterior circulation: Normal appearance and a standard branching pattern. No branch occlusion, vascular injury, arteritis, vascular malformation or aneurysm is identified. The [place] is normal. There is no evidence of cortical collateral circulation, collateral score is not applicable. The deep cerebral veins and major venous sinuses are normal. Age indeterminant subdural hematoma along the right cerebral convexity is again noted within the spinal left frontal convexity subdural collection. Stable right occipital lobe encephalomalacia is noted. Chronic malalignment of previous right posterior cranioplasty. CT PERFUSION: There is no regional abnormality in cerebral blood flow, cerebral blood volume, or transit time in the imaged areas of the brain to suggest active oligemia or infarction. IMPRESSION: 1. There are multiple small focal areas of mild to moderate narrowing in the distal intracranial arteries. This is most apparent in a branch of the A4 segment of the right RIDGE. The findings indicate intracranial atherosclerotic disease. 2. Stable bilateral subdural collections and stable right occipital lobe encephalomalacia. 3. No acute abnormality of the arterial vasculature of the neck. 4. No vascular territorial perfusion abnormality identified. (All qualitative and quantitative assessments of carotid bifurcation and proximal internal carotid artery stenosis are made referencing the distal internal carotid artery {NASCET criteria}.) [facility] 2021-08-21 12:00:00 EXAM: CT BRAIN WITHO UT CONTRAST DATE: 08/21/2021 12:28 [employer] AIDE INDICATION: - weakness COMPARISON: None. TECHNIQUE: Routine axial CT images of the brain were obtained. IV contrast: None. DLP: 662i mGy-cm FINDINGS: Non-contrast images of the head demonstrate no edema, hemorrhage, mass lesion or other acute intracranial abnormality. Right posterior parietal cranioplasty with depressed/malalignment of the lateral edge into the cranium abutting the right posterior parietal lobe, appears to be chronic in nature A small isodense subdural collection along the right cerebral convexity measuring 7 mm in maximum width and an tiny collection along the left cerebral convexity. Areas of encephalomalacia within the right occipital lobe adjacent to the craniotomy with exvacuodilatation of the occipital horn of the lateral ventricle suggestive of chronic infarct/trauma. Mild to moderate generalized cerebral volume loss and commiserate enlargement of the ventricles and sulci as well as confluent periventricular and subcortical white matter hypodensities consistent with chronic microvascular ischemic changes. Diffuse permeative appearing calvarial bone without acute fracture. Sinuses are clear. Mastoid air cells are underdeveloped bilaterally ASPECTS: 10 Laterality: none Caudate: normal Internal capsule: normal Lenticular: normal Insula: normal M1: normal M2: normal M3: normal M4: normal M5: normal M6: normal The sinuses and skull base are unremarkable. IMPRESSION: 1. No evidence of acute territorial infarct. 2. An age indeterminant subdural hematoma along the right cerebral convexity measuring 7 mm in maximum width and a tiny subdural collection along the left cerebral convexity. 3. Malalignment of right posterior cranioplasty, appears to be chronic in nature. 4. Small right occipital lobe encephalomalacia consistent with chronic infarct/injury. 5. Generalized cerebral volume loss and chronic microvascular ischemic changes of the white matter. 6. Heterogeneous permeative lytic changes throughout the calvarium and skull base concerning for diffuse metastases versus myeloma. [facility] 2021-08-21 12:00:00 EXAM: CTA BRAIN EXAM: CTA NECK EXAM: CT PERFUSION BRAIN DATE: 08/21/2021 12:31 [employer] AIDE INDICATION: - left facial droop COMPARISON: CT brain without contrast August 21, 2021 TECHNIQUE: - Dynamic CT perfusion images on a limited area of the brain parenchyma are performed during bolus injection of iodinated contrast material. Color maps of relative cerebral blood flow, relative cerebral blood volume, time to peak, and mean transit time are created on an independent workstation and are submitted along with the source image data. -Rapid acquisition spiral CT images of the brain and neck were obtained between the aortic arch and the cranial vertex during intravenous infusion of iodinated contrast for the purposes of CT angiography. 3-D CT angiographic images are created using MIP technique at the acquisition workstation. The source images are also presented for interpretation. IV contrast: Refer to MAR/cardiac cath lab technologist documentation DLP: Refer to CT protocol form FINDINGS: NECK CTA: Aortic arch: The great vessels originate from the aortic arch in the standard configuration. No origin stenosis is identified. The vertebral artery origins are patent bilaterally. Carotid arteries: The cervical common carotid arteries and cervical internal carotid arteries have a normal course, caliber, and contour. There are areas of calcification at the carotid bifurcations. No hemodynamically significant stenosis of the carotid bifurcations or internal carotid arteries is present by NASCET criteria. There is no evidence of vascular injury. Vertebral arteries: The vertebral arteries have a normal course, caliber and contour. The soft tissues of the neck are normal. Ground[place] opacities versus atelectasis is partially seen within the right upper lung. BRAIN CTA: Anterior circulation: Normal appearance and a standard branching pattern. There is a area of focal narrowing seen at the A4 segment of the right anterior indicating artery (series 912, image 77). Posterior circulation: Normal appearance and a standard branching pattern. No branch occlusion, vascular injury, arteritis, vascular malformation or aneurysm is identified. The [place] is normal. There is no evidence of cortical collateral circulation, collateral score is not applicable. The deep cerebral veins and major venous sinuses are normal. Age indeterminant subdural hematoma along the right cerebral convexity is again noted within the spinal left frontal convexity subdural collection. Stable right occipital lobe encephalomalacia is noted. Chronic malalignment of previous right posterior cranioplasty. CT PERFUSION: There is no regional abnormality in cerebral blood flow, cerebral blood volume, or transit time in the imaged areas of the brain to suggest active oligemia or infarction.
[2024-04-10] MEDS ORDERED: ONDANSETRON 4 MG/2 ML VIAL ONE ×2 (16:25→19:31)
[2024-04-10] MEDS ORDERED: MORPHINE 4 MG/ML SYR ONE ×2 (16:25→18:47)
[2024-04-10] MEDS ORDERED: PIPERACIL/TAZO 3.375 GM VIAL IV ONE (16:26)
[2024-04-10] MEDS ORDERED: NA CHLORIDE 0.9% 100 ML ONE (16:26)
[2024-04-10] MEDS ORDERED: NA CHLORIDE 0.9% 1,000 ML ONE ×2 (16:26→19:31)
[2024-04-10 16:33] LABS: Absolute Basophils 0.1 K/uL (0-0.5); Absolute Lymphocytes (CBC) 2.5 K/uL (0.7-4.9); Absolute Monocytes 0.8 K/uL (0.1-1.3); Absolute Neutrophil 8.2 K/uL (1.8-8.0); Basophils % 0.9 % (0-1.3); Eosinophils % 0.2 % (0-4.4); Hematocrit 39.7 % (36.0-45.0); Hemoglobin 13.1 g/dL (12.0-15.0); Lymphocytes % 21.6 % (15.3-44.8); MCH 30.1 pg (27.0-35.0); MCHC 33.1 g/dL (32.0-36.0); MCV 90.8 fL (80-100); MPV 7.9 fL (7.6-11.3); Monocytes % 6.7 % (3.3-12.3); Neutrophils % 70.6 % (41.7-73.7); Platelets 326 thou/uL (152-406); RBC Red Blood Cell Count 4.37 M/uL (3.86-4.86); Red Cell Distribution Width 13.9 % (12.1-15.2)
[2024-04-10 16:51] LABS: Albumin 3.3 g/dL (3.4-5.0); Albumin/Globulin Ratio 0.9 (1.1-1.8); Anion Gap 8.1 mEq/L (5.0-15.0); Bilirubin Total 0.7 mg/dL (0.2-1.0); Globulin 3.8 g/dL (2.3-3.5); Potassium 3.1 mEq/L (3.5-5.1); Protein, Total 7.1 g/dL (6.4-8.2)
--- NOTE | 2024-04-10 17:51 | ER ---
Nurse's Notes [facility] Name: Azeb Angel Age: 63 yrs Sex: Female : 1960 Arrival Date: 04/10/2024 Time: 15:36 Bed IW10 Private MD: Diagnosis: Acute cholecystitis;Transaminitis Presentation: 04/10 15:56 Chief complaint: Patient states: she has been having abdominal pain for a few weeks, ap3 and it has been bothering her more today. patient also reports nausea. Coronavirus screen: At this time, the client does not indicate any symptoms associated with coronavirus-19. Ebola Screen: No symptoms or risks identified at this time. Initial Sepsis Screen: Does the patient meet any 2 criteria? No. Patient's initial sepsis screen is negative. Does the patient have a suspected source of infection? No. Patient's initial sepsis screen is negative. Risk Assessment: Do you want to hurt yourself or someone else? Patient reports no desire to harm self or others. Onset of symptoms is unknown. 15:56 Method Of Arrival: Ambulatory ap3 15:56 Acuity: KAT 3 ap3 Triage Assessment: 15:58 General: Appears uncomfortable, Behavior is calm, cooperative, appropriate for age. ap3 Pain: Complains of pain in abdomen Pain currently is 9 out of 10 on a pain scale. Neuro: Level of Consciousness is awake, alert, obeys commands, Oriented to person, place, time, situation, Appropriate for age. Cardiovascular: Patient's skin is warm and dry. Respiratory: Airway is patent Respiratory effort is even, unlabored, Respiratory pattern is regular, symmetrical. GI: Reports lower abdominal pain, upper abdominal pain, nausea. Historical: - Allergies: 15:57 Codeine; ap3 15:57 Ibuprofen; ap3 - PMHx: 15:57 brain and lung cancer; ap3 - Immunization history:: Client reports receiving the 2nd dose of the Covid vaccine. - Infectious Disease History:: Denies. - Social history:: Smoking status: Patient reports the use of cigarette tobacco products. - Family history:: not pertinent. Screenin:59 Abuse screen: Denies threats or abuse. Nutritional screening: No deficits noted. ap3 Tuberculosis screening: No symptoms or risk factors identified. 16:01 [facility] ED Fall Risk Assessment (Adult) History of falling in the last 3 months, rs5 including since admission Yes- single mechanical fall (1 pt) Confusion or Disorientation No (0 pts) Intoxicated or Sedated No (0 pts) Impaired Gait Yes (1 pt) Mobility Assist Device Used No (0 pt) Altered Elimination Score/Fall Risk Level 0 - 2 = Low Risk Oriented to surroundings, Maintained a safe environment. Assessment: 16:52 General: Appears in no apparent distress. Behavior is calm, cooperative. Pain: iw Complains of pain in abdomen. Neuro: Level of Consciousness is awake, alert, obeys commands, Oriented to person, place, situation, Moves all extremities. Cardiovascular: Patient's skin is warm and dry. Respiratory: Respiratory effort is even, unlabored, Respiratory pattern is regular. GI: No signs and/or symptoms were reported involving the gastrointestinal system. Abdomen is non-distended, Reports lower abdominal pain, upper abdominal pain, nausea. Musculoskeletal: Range of motion: intact in all extremities. 16:53 Reassessment: purewick in place per pt request. iw 18:06 Reassessment: Patient and/or family updated on plan of care and expected duration. Pain rs5 level reassessed. Patient is alert, oriented x 3, equal unlabored respirations, skin warm/dry/pink. GI: Abd is soft and non tender X 4 quads. 18:58 Reassessment: Patient and/or family updated on plan of care and expected duration. Pain rs5 level reassessed. Patient is alert, oriented x 3, equal unlabored respirations, skin warm/dry/pink. 19:20 Reassessment: Patient appears in no apparent distress at this time. Patient and/or jb4 family updated on plan of care and expected duration. Pain level reassessed. Patient is alert, oriented x 3, equal unlabored respirations, skin warm/dry/pink. 20:30 Reassessment: Patient appears in no apparent distress at this time. Patient and/or jb4 family updated on plan of care and expected duration. Pain level reassessed. Patient is alert, oriented x 3, equal unlabored respirations, skin warm/dry/pink. Vital Signs: 15:56 BP 113 / 91; Pulse 77; Resp 17; Temp 98.1; Pulse Ox 98% ; Height 5 ft. 2 in. ; Pain ap3 9/10; 17:17 BP 111 / 58; Pulse 61; Resp 16; Pulse Ox 95% on R/A; Pain 8/10; iw 18:58 BP 110 / 62; Pulse 67; Resp 17; Pulse Ox 96% on R/A; rs5 19:54 BP 116 / 78; Pulse 80; Resp 16; Pulse Ox 98% on R/A; jb4 20:30 BP 106 / 63; Pulse 62; Resp 16; Pulse Ox 95% on R/A; jb4 15:56 Pain Scale: Adult ap3 17:17 Pain Scale: Adult iw ED Course: 15:37 Patient arrived in ED. am2 15:39 Umair Chester MD is Attending Physician. rt 15:57 Triage completed. ap3 15:59 Arm band placed on left wrist. ap3 16:01 No provider procedures requiring assistance completed. rs5 16:24 Anand Horn, JUANY is Primary Nurse. rs5 16:25 Initial lab(s) drawn, by ED staff, sent to lab. Inserted saline lock: 22 gauge in right iw hand, using aseptic technique. Blood collected. Flushed with 10 mL NS IV inserted by JUANY Michel. 17:11 US Abdomen Limited In Process Unspecified. EDMS 17:18 Patient has correct armband on for positive identification. Client placed on continuous iw cardiac and pulse oximetry monitoring. NIBP monitoring applied. 17:50 Mark Funes MD is Hospitalizing Provider. rt 18:58 Provided Education on: need for admit. rs5 18:58 Patient admitted, IV remains in place. rs5 Administered Medications: 16:30 Drug: Ondansetron IVP 4 mg IVP once; over 2 minutes Route: IVP; Site: right antecubital;iw 17:18 Follow up: Response: No adverse reaction iw 17:18 Follow up: Response: No adverse reaction iw 16:30 Drug: morphine IVP or IV 4 mg IVP once over 4 mins Route: IVP; Infused Over: 4 mins; iw Site: right antecubital; 17:17 Follow up: Response: No adverse reaction; Pain is unchanged, physician notified iw 17:18 Follow up: Response: No adverse reaction; Pain is unchanged, physician notified iw 16:30 Drug: NS 0.9% IV 1000 ml IV at 1 bolus Per protocol; to be given as a bolus over 60 iw minutes Route: IV; Rate: 1 bolus; Site: right antecubital; 17:33 Follow up: Response: No adverse reaction; IV Status: Completed infusion; IV Intake: rs5 1000ml 16:50 Drug: Piperacillin-Tazobactam IVPB 3.375 grams IVPB once over 60 mins; (mix in NS 100 iw mL) Route: IVPB; Infused Over: 60 mins; Site: right antecubital; 17:18 Follow up: IV Status: Completed infusion iw 17:18 Follow up: IV Status: Completed infusion iw 17:30 Drug: Ketorolac IVP 15 mg IVP once Route: IVP; Site: right hand; rs5 18:59 Follow up: Response: No adverse reaction; Pain is decreased rs5 17:44 Drug: morphine IVP or IV 4 mg IVP once over 4 mins Route: IVP; Infused Over: 4 mins; rs5 Site: right hand; 18:01 Follow up: Response: No adverse reaction rs5 Medication: 18:07 VIS not applicable for this client. rs5 Intake: 17:33 IV: 1000ml; Total: 1000ml. rs5 Outcome: 17:51 Decision to Hospitalize by Provider. rt 18:58 Admitted to ER Hold. Please see [facility] for further documentation. rs5 18:58 Condition: stable 18:58 Instructed on the need for admit, Demonstrated understanding of instructions, 23:35 Patient left the ED. jb4 Signatures: Dispatcher [employer] EDaJnet Pollard RN RN iw Bryson, James, RN RN jb4 Izabela Marshall Amanda, RN RN ap3 Umair Chester MD MD rt Anand Horn RN RN rs5 Corrections: (The following items were deleted from the chart) 17:17 16:25 Inserted saline lock: 22 gauge in right antecubital area, using aseptic iw technique. Blood collected. Flushed with 10 mL NS iw 17:17 16:25 Initial lab(s) drawn, by ED staff, sent to lab. iw iw
--- NOTE | 2024-04-10 17:51 | EDPHYS ---
Physician Documentation [facility] Name: Azeb Angel Age: 63 yrs Sex: Female : 1960 Arrival Date: 04/10/2024 Time: 15:36 Bed IW10 Private MD: ED Physician Umair Chester HPI: 04/10 18:11 This 63 yrs old Female presents to ER via Ambulatory with complaints of Abdominal Pain. rt 18:11 Patient presents to the ED with a right upper quadrant pain. Patient was admitted about rt a week ago for cholecystitis, treated with IV antibiotics, transition to oral. Patient states that her symptoms have worsened with nausea, vomiting. Denies other acute complaints at this time, symptoms are moderate in severity, no other aggravating or alleviating factors.. Historical: - Allergies: 15:57 Codeine; ap3 15:57 Ibuprofen; ap3 - PMHx: 15:57 brain and lung cancer; ap3 - Immunization history:: Client reports receiving the 2nd dose of the Covid vaccine. - Infectious Disease History:: Denies. - Social history:: Smoking status: Patient reports the use of cigarette tobacco products. - Family history:: not pertinent. ROS: 18:11 Constitutional: Negative for fever, chills, and weight loss, Cardiovascular: Negative rt for chest pain, palpitations, and edema, Respiratory: Negative for shortness of breath, cough, wheezing, and pleuritic chest pain, MS/Extremity: Negative for injury and deformity, Skin: Negative for injury, rash, and discoloration, Neuro: Negative for headache, weakness, numbness, tingling, and seizure, 18:11 Abdomen/GI: Positive for abdominal pain, nausea and vomiting, Exam: 18:11 Constitutional: This is a well developed, well nourished patient who is awake, alert, rt and in no acute distress. Head/Face: Normocephalic, atraumatic. Chest/axilla: Normal chest wall appearance and motion. Nontender with no deformity. No lesions are appreciated. Cardiovascular: Regular rate and rhythm with a normal S1 and S2. No gallops, murmurs, or rubs. Normal PMI, no JVD. No pulse deficits. Respiratory: Lungs have equal breath sounds bilaterally, clear to auscultation and percussion. No rales, rhonchi or wheezes noted. No increased work of breathing, no retractions or nasal flaring. Skin: Warm, dry with normal turgor. Normal color with no rashes, no lesions, and no evidence of cellulitis. MS/ Extremity: Pulses equal, no cyanosis. Neurovascular intact. Full, normal range of motion. Neuro: Awake and alert, GCS 15, oriented to person, place, time, and situation. Cranial nerves II-XII grossly intact. Motor strength 5/5 in all extremities. Sensory grossly intact. Cerebellar exam normal. Normal gait. 18:11 Abdomen/GI: Tenderness to the right upper quadrant with guarding, no rebound, distention, Vital Signs: 15:56 BP 113 / 91; Pulse 77; Resp 17; Temp 98.1; Pulse Ox 98% ; Height 5 ft. 2 in. ; Pain ap3 9/10; 17:17 BP 111 / 58; Pulse 61; Resp 16; Pulse Ox 95% on R/A; Pain 8/10; iw 18:58 BP 110 / 62; Pulse 67; Resp 17; Pulse Ox 96% on R/A; rs5 19:54 BP 116 / 78; Pulse 80; Resp 16; Pulse Ox 98% on R/A; jb4 20:30 BP 106 / 63; Pulse 62; Resp 16; Pulse Ox 95% on R/A; jb4 15:56 Pain Scale: Adult ap3 17:17 Pain Scale: Adult iw MDM: 16:02 Medical Screening Exam initiated rt 18:12 Differential Diagnosis Cholecystitis, choledocholithiasis. Data reviewed: vital signs, rt nurses notes, lab test result(s), radiologic studies. Consideration of Admission/Observation Patient was admitted/placed on observation. Management of patient was discussed with the following: Senior Technical Recruiter: Discussed with Dr. Treviño who recommends admission to the hospital, IV antibiotics, recommends consultation with Dr. Dee. Spoke with Dr. Dee, requesting MRCP be performed in the morning. Will evaluate the patient.. I considered the following discharge prescriptions or medication management in the emergency department Medications were administered in the Emergency Department. See MAR. Independent interpretation of the following test(s) in the Emergency Department Radiology Department Ultrasound: My interpretation is Thickened gallbladder wall seen on my interpretation of ultrasound images. Care significantly affected by the following chronic conditions: Cancer. Counseling: I had a detailed discussion with the patient and/or guardian regarding the historical points, exam findings, and any diagnostic results supporting the discharge/admit diagnosis, lab results, radiology results, the need for further work-up and treatment in the hospital. Response to treatment: There is no appreciated change of the patient's symptoms at this time. 04/10 16:10 Order name: CBC with Diff; Complete Time: 16:54 rt 04/10 16:10 Order name: CMP; Complete Time: 16:54 rt 04/10 16:10 Order name: Lipase; Complete Time: 16:54 rt 04/10 17:44 Order name: PT-INR rt 04/10 17:44 Order name: Ptt, Activated rt 04/10 18:50 Order name: Urinalysis w/ reflexes EDMS 04/10 18:50 Order name: CBC with Automated Diff EDMS 04/10 18:50 Order name: CBC with Automated Diff EDMS 04/10 18:50 Order name: Comprehensive Metabolic Panel EDMS 04/10 18:50 Order name: Comprehensive Metabolic Panel EDMS 04/10 18:50 Order name: Magnesium EDMS 04/10 18:50 Order name: Magnesium EDMS 04/10 18:50 Order name: Phosphorus EDMS 04/10 18:50 Order name: Phosphorus EDMS 04/10 16:10 Order name: US Abdomen Limited; Complete Time: 17:56 rt 04/10 18:50 Order name: CONS Physician Consult EDMS 04/10 16:10 Order name: IV Saline Lock; Complete Time: 16:49 rt 04/10 16:10 Order name: Labs collected and sent; Complete Time: 16:50 rt Administered Medications: 16:30 Drug: Ondansetron IVP 4 mg IVP once; over 2 minutes Route: IVP; Site: right antecubital;iw 17:18 Follow up: Response: No adverse reaction iw 17:18 Follow up: Response: No adverse reaction iw 16:30 Drug: morphine IVP or IV 4 mg IVP once over 4 mins Route: IVP; Infused Over: 4 mins; iw Site: right antecubital; 17:17 Follow up: Response: No adverse reaction; Pain is unchanged, physician notified iw 17:18 Follow up: Response: No adverse reaction; Pain is unchanged, physician notified iw 16:30 Drug: NS 0.9% IV 1000 ml IV at 1 bolus Per protocol; to be given as a bolus over 60 iw minutes Route: IV; Rate: 1 bolus; Site: right antecubital; 17:33 Follow up: Response: No adverse reaction; IV Status: Completed infusion; IV Intake: rs5 1000ml 16:50 Drug: Piperacillin-Tazobactam IVPB 3.375 grams IVPB once over 60 mins; (mix in NS 100 iw mL) Route: IVPB; Infused Over: 60 mins; Site: right antecubital; 17:18 Follow up: IV Status: Completed infusion iw 17:18 Follow up: IV Status: Completed infusion iw 17:30 Drug: Ketorolac IVP 15 mg IVP once Route: IVP; Site: right hand; rs5 18:59 Follow up: Response: No adverse reaction; Pain is decreased rs5 17:44 Drug: morphine IVP or IV 4 mg IVP once over 4 mins Route: IVP; Infused Over: 4 mins; rs5 Site: right hand; 18:01 Follow up: Response: No adverse reaction rs5 Disposition Summary: 04/10/24 17:51 Hospitalization Ordered Notes: Hospitalization Status: Inpatient Admission rt Provider: Mark Funes rt Condition: Fair rt Problem: new rt Symptoms: have improved rt Bed/Room Type: Standard rt Location: Telemetry/MedSurg (Inpatient)(04/10/24 22:27) [facility] Room Assignment: [facility](04/10/24 22:27) [facility] Diagnosis - Acute cholecystitis rt - Transaminitis rt Forms: - Medication Reconciliation Form rt - SBAR form rt - Leadership Thank You Letter rt Signatures: Dispatcher [employer] Janet Rodriguez RN RN iw Prokisch, Amanda, RN RN ap3 Britney Sofia RN RN vc1 Umair Chester MD MD rt Anand Horn RN RN rs5 Alisa Moran [facility] Corrections: (The following items were deleted from the chart) 21:06 17:51 Telemetry/MedSurg (Inpatient) rt vc1 21:06 17:51 rt vc1 22:27 21:06 [facility] ER HOLD vc1 kmf 22: 21:06 ERHOLD- vc1 kmf
--- NOTE | 2024-04-10 17:55 | RAD REPORT ---
EXAMINATION: Abdomen Exam Limited CLINICAL HISTORY: [facility]q Bed Name: [facility] COMPARISON: 04/04/2024 MRI abdomen. 04/03/2024 ultrasound TECHNIQUE: Limited upper abdominal grayscale and color flow sonographic images. FINDINGS: Gallbladder: Shadowing gallstones again seen. Mild wall thickening, up to 4 mm. Sonographic Evans's sign not well assessed as patient is on pain meds. No pericholecystic fluid. Bile ducts: No intrahepatic or extrahepatic biliary dilatation. Common bile duct measures 0.7 cm in caliber, previously measured up to 1 cm. Liver: Visualized portions of the liver demonstrate normal echogenicity with no suspicious findings. Fluid: No ascites. IMPRESSION: Stable findings, which again may suggest acute cholecystitis in the appropriate clinical setting. Partial improvement of among bile duct caliber prominence, now up to 0.7 cm.
[2024-04-10] MEDS ORDERED: KETOROLAC 30 MG/ML INJ ONE (18:30)
[2024-04-10] MEDS ORDERED: ACETAMINOPHEN 325 MG TABLET PO PRN (18:44)
--- NOTE | 2024-04-10 18:44 | P.HP ---
Certification for Inpatient Patient admitted to: Inpatient With expected LOS: >2 Midnights Practitioner: I am a practitioner with admitting privileges, knowledge of patient current condition, hospital course, and medical plan of care. Services: Services provided to patient in accordance with Admission requirements found in Title 42 Section 412.3 of the Code of Federal Regulations Patient History Date of Service: 04/10/24 Reason for admission: Abdominal Pain History of Present Illness: 63-year-old female with past medical history of lung cancer, brain tumor, history of cholecystitis previously, who was seen in the hospital last week with similar complaints came to ER with abdominal pain located in right upper quadrant without radiation associated with some nausea and vomiting. Patient was admitted last week with acute cholecystitis, with normal LFTs and normal MRCP with no CBD dilatation was advised follow-up as outpatient and was discharged home. Patient started having pain in the right upper quadrant and was brought back to ER. Pain is 8 out of 10 in severity. Located in right upper quadrant. Evans sign positive. Patient is being admitted for further management and surgical consult . Allergies codeine Allergy (Verified 04/04/24 02:33) Nausea/Vomiting ibuprofen Allergy (Verified 04/04/24 02:33) Nausea/Vomiting Home medications list reviewed: Yes Home Medications: Aspirin/Dipyridamole [Aspirin-Dipyridam ER 25-200 mg] 1 tab PO BID 04/04/24 Atorvastatin Calcium 40 mg PO BEDTIME 04/04/24 Ciprofloxacin HCl [Cipro 500 MG Tablet] 500 mg PO BID #20 tab 04/04/24 metroNIDAZOLE [Flagyl] 500 mg PO Q8H #30 tab 04/04/24 - Past Medical/Surgical History Diabetic: No Past Medical History: Reviewed- Non-Contributory -: stroke -: brain cancer Past Surgical History: Reviewed- Non-Contributory -: brain surgery -: right knee surgery -: right breast cyst removal - Family History Family History: Reviewed- Non-Contributory - Social History Smoking Status: Never smoker Alcohol use: No CD- Drugs: No Caffeine use: No Review of Systems 10-point ROS is otherwise unremarkable Physical Examination - Vital Signs Temperature: 98.2 F Blood Pressure: 136/72 Pulse: 82 Respirations: 18 Pulse Ox (%): 96 - Physical Exam General: Alert, Oriented x3, Cooperative, Mild distress HEENT: Atraumatic, Normocephalic Neck: Supple Respiratory: Clear to auscultation bilaterally, Normal air movement Capillary refill: <2 Seconds Gastrointestinal: Other ([place] sign positive ), Tenderness Musculoskeletal: No clubbing, No swelling Integumentary: No rashes, No breakdown Neurological: Normal speech, Normal strength at 5/5 x4 extr, Cranial nerves 3-12 intact Lymphatics: No axilla or inguinal lymphadenopathy - Studies Laboratory Data (last 24 hrs) 04/10/24 04/10/24 16:20 16:20 WBC 11.60 H Hgb 13.1 Hct 39.7 Plt Count 326 Sodium 139 Potassium 3.1 L BUN 11 Creatinine 0.73 Glucose 120 H Total Bilirubin 0.7 AST 371 H ALT 136 H Alkaline Phosphatase 269 H Lipase 33 Assessment and Plan - Plan Acute cholecystitis Cholelithiasis Elevated LFTs Ultrasound positive for acute cholecystitis with gallstones CBD with moderate dilated 0.7 Will get an MRCP in the morning Surgical consult N.p.o. postmidnight IV hydration Started on Zosyn Hypokalemia Monitor on telemetry Replace potassium Potassium replacement protocol History of malignancies Supportive management GI/DVT prophylaxis Advanced directive full code Discharge Plan: Home Plan to discharge in: 48 Hours - Advance Directives Does patient have a Living Will: No Does patient have a Durable POA for Healthcare: No - Code Status/Comfort Care Code Status: Full Code Time Spent Managing Pts Care (In Minutes): 49
[2024-04-10] MEDS: PIPER TAZO 3.375 GM in NA CHLORIDE 0.9% 100 ML IV SCH (18:49)
[2024-04-10 18:54] LABS: PT Prothrombin Time 13.1 SECONDS (9.4-12.5); PTT, Activated Partial Thromb 38.6 SECONDS (24.3-36.9); Protime INR 1.18
[2024-04-10] MEDS: NA CHLORIDE 0.9% 1,000 ML IV SCH (19:00)
[2024-04-10] MEDS: ONDANSETRON 4 MG/2 ML VIAL IV PRN (19:36)
[2024-04-10] MEDS ORDERED: POTASSIUM CL SA 10 MEQ TAB PO ONE (23:57)
[2024-04-11] MEDS: POTASSIUM CL SA 10 MEQ TAB PO ONE ×2 (00:30→00:42)
[2024-04-11] MEDS: MORPHINE 2 MG/ML SYR IV PRN (00:42)
[2024-04-11 01:03] VITALS: BMI 22.2
[2024-04-11 05:42] LABS: Absolute Lymphocytes (CBC) 1.6 K/uL (0.7-4.9); Absolute Monocytes 0.4 K/uL (0.1-1.3); Basophils % 0.5 % (0-1.3); Eosinophils % 0.1 % (0-4.4); Hematocrit 33.1 % (36.0-45.0); Hemoglobin 11.5 g/dL (12.0-15.0); Lymphocytes % 26.4 % (15.3-44.8); MCH 31.2 pg (27.0-35.0); MCHC 34.7 g/dL (32.0-36.0); MCV 89.9 fL (80-100); MPV 8.1 fL (7.6-11.3); Monocytes % 6.1 % (3.3-12.3); Neutrophils % 66.9 % (41.7-73.7); Nucleated Red Blood Cells % 0.2 % (0-0); Platelets 270 thou/uL (152-406); RBC Red Blood Cell Count 3.68 M/uL (3.86-4.86); Red Cell Distribution Width 14.2 % (12.1-15.2)
[2024-04-11 06:00] LABS: Albumin 2.6 g/dL (3.4-5.0); Albumin/Globulin Ratio 0.9 (1.1-1.8); Anion Gap 8.1 mEq/L (5.0-15.0); Bilirubin Total 0.6 mg/dL (0.2-1.0); Magnesium 2.1 mg/dL (1.6-2.4); Phosphorus 2.9 mg/dL (2.5-4.9); Potassium 4.1 mEq/L (3.5-5.1); Protein, Total 5.6 g/dL (6.4-8.2)
[2024-04-11] MEDS: LORazepam 2 MG/ML VIAL IV ONE ×2 (08:00→10:41)
--- NOTE | 2024-04-11 08:56 | P.PN ---
Date of Service: 04/11/24 subjective N.p.o. for surgery to eval, pain control as needed analgesia Review of Systems 10-point ROS is otherwise unremarkable unless listed HPI Physical Examination - Vital Signs reviewed - Physical Exam General: Alert, Oriented x3, HEENT: Atraumatic, Normocephalic Respiratory: Clear to auscultation bilaterally, Normal air movement Capillary refill: <2 Seconds Gastrointestinal: RUQ tenderss, +[place] sign Musculoskeletal: No clubbing, No swelling Integumentary: No rashes, No breakdown Neurological: Normal speech, Normal strength at 5/5 x4 extr, Lymphatics: No axilla or inguinal lymphadenopathy Assessment and Plan - Plan Acute cholecystitis Cholelithiasis Transaminitis Surgical consult, NPO Ultrasound positive for acute cholecystitis with gallstones CBD with moderate dilated 0.7 Ordered, MRCP IV hydration Started on Zosyn Hypokalemia Monitor on telemetry Replace potassium prn Potassium replacement protocol History of malignancies Supportive management GI/DVT prophylaxis Advanced directive full code Discharge Plan: Home Plan to discharge in: 48 Hours - Advance Directives Does patient have a Living Will: No Does patient have a Durable POA for Healthcare: No - Code Status/Comfort Care Code Status: Full Code Time Spent Managing Pts Care (In Minutes): 30 <Rachel Sharma - Last Filed: 04/12/24 08:48> Patient was seen and examined. Events of the last 24 hours have been noted. Spoke with with [facility] regarding patient's clinical picture after evaluating and examining the patient independently. I performed a substantial part of the MDM during this patient's care today. I personally made or approved the documented management plan and acknowledge its risk of complications. I agree with the findings and documentation provided in the [place]'s notes. Plan is to continue with IV antibiotic therapy. Awaiting for general surgery and GI input. <Shahram Brown - Last Filed: 04/15/24 17:39>
[2024-04-11] MEDS: ENOXAPARIN 40 MG/0.4 ML SQ SCH (09:44)
--- NOTE | 2024-04-11 10:48 | CON ---
Date of Consultation: 04/11/2024 Reason For Consultation: Right upper quadrant pain and acute cholecystitis. History Of Present Illness: The patient is a 63-year-old white female with history of brain and lung cancer status post partial brain resection and recent cholecystitis. The patient came to the hospit ma with right upper quadrant pain. She had been at the hospital 1 week ago with cholecystitis, at th at time was sent home, and now comes back with cholecystitis again, and last week she was admitted wi th acute cholecystitis, abnormal LFTs, and normal MRCP with no CBD dilatation, was asked to follow up as outpatient, and was discharged home. Now, she comes back with right upper quadrant pain again. She states 1010, in the hospital now is down to 9/10. She had a positive Evans's sign in the emerg ency room and on ultrasound it appears. Past Medical History: Significant for lung and brain cancer, status post stroke in the past, status post left cerebral lobectomy. She reports right knee surgery, right breast cyst removal. Medications: At home include aspirin, atorvastatin, Cipro, and Flagyl. Allergies: TO CODEINE, IBUPROFEN. Social History: She is , 3 children. Positive for tobacco 1 pack per day. No alcohol. Family History: Father of what appears possible myocardial infarction. Mother in a coma, had thyroid disease . Review of Systems: The patient has right upper quadrant pain, nausea, vomiting, some change in bowel habits, diarrhea sh e states for the past week as does her . She denies any fevers, chills, night sweats, muscle aches, joint aches, backaches, anxiety, depression, chest pain, shortness of breath, seizure, syncope , hematuria, dysuria, polyuria, polydipsia, melena, hematochezia, hematemesis, coffee-ground emesis, epistaxis, or hemoptysis. Physical Examination: Vital Signs: The patient is 5 feet 2 inches and 121 pounds. BMI of 22.2 kg/m2. Temperature 97 degr ees Fahrenheit, pulse 75, respirations 20, blood pressure 138/76, O2 saturation 96%. General: She is an elderly female, lying in bed, in no acute distress. HEENT: Normocephalic, atraumatic. Anicteric. Pupils equal, round, and reactive to light. Extraocu lar movements are intact. Oropharynx clear. Neck: Supple. No masses. Respirations: Clear to auscultation bilaterally. Cardiac: Regular rate and rhythm. No gallops or rubs. Abdomen: Positive bowel sounds. Marked pain in right upper quadrant guarding and positiv e Evans sign. Extremities: No clubbing, cyanosis, or edema. 2+ pulses. Neuro: Alert and oriented x3. Grossly nonfocal. 5/5 motor. Sensation intact to light touch. Laboratory Data: The patient had a white count on admission of 11.6, now today down to 5.9 on antibi otics; hemoglobin of 13.1 on admission, down to 11.5, anemic at this time; hematocrit 33.1; MCV of 90 ; platelet count of 270; polys of 67%; lymphocytes 26%; monocytes 6%. Has a PT of 13.1, INR of 1.2, PTT of 38.6. Sodium 143, potassium 4.1, chloride 115, bicarb 24, BUN 10, creatinine 0.53, glucose 11 5, calcium 8.0, phosphorus 2.9, magnesium 2.1, total bilirubin 0.6, AST of 307, ALT of 199, alkaline phosphatase 248, total protein 5.6, albumin 2.6, lipase is 33. Ultrasound of the abdomen reveals sha dowing gallstones in gallbladder with mild gallbladder wall thickening at 4 mm. Sonographic Evans s ign possible with no pericholecystic fluid. Common bile duct measured 7 mm, previously measured 1 cm . It has improved since last study. Impression: 1.Acute cholecystitis. Ultrasound revealing gallstones in gallbladder; acute cholecystitis; finding s of gallbladder wall thickening; normal common bile duct at 7 mm, improved, down from 10 mm on last admission a week ago; right upper quadrant pain, 10/10 maximum, now down to 9/10 in hospital __ nausea, vomiting. No fevers, chills, night sweats. muscle aches, joint aches, backach es, chest pain. No melena, hematochezia, hematemesis, coffee-ground emesis, or other. She does repo rt diarrhea over the past week with mushy stools. 2.History of brain and lung cancer, status post stroke. 3.Status post left cerebral lobectomy, right knee surgery, and right breast cyst removal. Recommendations: 1.Await MRCP which is ordered for this morning. 2.Continue p.r.n. pain medications and antiemetics. 3.Continue IV fluids, IV antibiotics. 4.Check stool studies. 5.Surgery consultation which has been done. JL/CHRISTIAN Voice ID: [id number] Report ID: [id number]
--- NOTE | 2024-04-11 12:55 | RAD REPORT ---
EXAMINATION: MR CHOLANGIOGRAM CLINICAL INDICATION: Female, 63 years old. Elevated LFTs TECHNIQUE: Multiplanar, multisequence MR imaging of the abdomen without intravenous contrast, and wit h specific attention to the biliary system. Unless otherwise specified, incidental findings do not require dedicated imaging follow-up. 3D MIP reconstruction performed. COMPARISON: 04/04/2024, 04/03/2024 FINDINGS: GALLBLADDER: Several gallbladder stones are seen with gallbladder wall thickening present. Trace shawn cholecystic fluid is also likely present. BILE DUCTS: 5 mm signal defect in the distal common bile duct likely a stone. LIVER: Normal in size, contour, and signal without evidence of fatty infiltration or iron deposition. No focal lesion. PANCREAS: Mild prominence of the pancreatic duct. LYMPH NODES: No lymphadenopathy. ADDITIONAL FINDINGS: None. IMPRESSION: Cholelithiasis is noted with gallbladder wall thickening present. Suggest correlation with clinical M urphy's sign. Focal defect in the distal common bile duct likely choledocholithiasis.
[2024-04-11] MEDS: FLU (Fluarix Triv) TS24-25(6MOS UP)/PF 45 MCG/0.5 ML Syringe IM ONE (14:00)
--- NOTE | 2024-04-11 19:03 | CON ---
Date of Consultation: 04/10/2024 Reason For Consultation: Abdominal pain. History Of Present Illness: The patient is a 63-year-old female who I recently saw with cholelithias is and possible cholecystitis a week ago with having biliary colic pain for 2 weeks prior to admissio n. She has a complicated past medical history with lung cancer, brain mets, multiple strokes, and po ssible liver masses that may be mets as well. The patient did well on the last admission with conser vative management, was discharged, was supposed to follow up with [facility], but her symptoms worsened, an d she came back last night with increasing pain and the pain was on the right side, right upper quadr ant associated with nausea, occasional vomiting, and occasional diarrhea. No sore throat, runny nose , cough, headaches, or dizziness. No chest pain. No fevers or chills. Review of Systems: Otherwise, unremarkable. Past Medical History: Significant for brain tumor, lung cancer. Past Surgical History: Craniotomy many years ago. Allergies: NO ALLERGIES. Social History: She does not smoke or drink alcohol. Family History: Noncontributory. Physical Examination: Vital Signs: Stable. She is afebrile. General: She is awake, alert, and oriented x3. Head and Neck: No masses. Chest: Clear. Heart: S1, S2. Abdomen: Soft. Positive right upper quadrant tenderness and epigastric tenderness with minimal rebo und. No rigidity or guarding. Extremities: Adequately perfused. Nontender. Neuro: Nonfocal. Laboratory Data: White count on admission was 11.6, today it is 5.9. Her INR is 1.18. Her LFTs: A ST and ALT are markedly elevated 307 and 199 respectively. Alkaline phosphatase is 248. Her lipase is 33. Her MRCP shows a 5 mm stone in the distal common bile duct with several gallbladder stones an d gallbladder wall thickening present. Trace pericholecystic fluid is also likely present. Ultrasou nd and CT have the similar findings. Assessment: Acute on chronic cholecystitis, cholelithiasis, and choledocholithiasis. Recommendations: Admit, NPO, IV fluid, IV antibiotics. GI consultation for an ERCP, following which we will proceed with laparoscopic cholecystectomy, possible open. The plan of care was discussed in detail with the patient and family as well as Dr. Brown. They understands risks, benefits, alternati ves, and agreed to procedure. /MODDominick Voice ID: [id number] Report ID: [id number]
--- NOTE | 2024-04-12 08:37 | P.DS ---
Admission Date: 04/10/24 Discharge Date: 04/15/24 Disposition: ROUTINE DISCHARGE Reason for Admission: Abdominal Pain Brief History of Present Illness: 63-year-old female with past medical history of lung cancer, brain tumor, history of cholecystitis previously, who was seen in the hospital last week with similar complaints came to ER with abdominal pain located in right upper quadrant without radiation associated with some nausea and vomiting. Patient was admitted last week with acute cholecystitis, with normal LFTs and normal MRCP with no CBD dilatation was advised follow-up as outpatient and was discharged home. Patient started having pain in the right upper quadrant and was brought back to ER. Pain is 8 out of 10 in severity. Located in right upper quadrant. Evans sign positive. - Physical Exam General: Alert, Oriented x3, Cooperative, HEENT: Atraumatic, Normocephalic Neck: Supple Respiratory: Clear to auscultation bilaterally, Normal air movement Capillary refill: <2 Seconds Gastrointestinal: Tenderness Musculoskeletal: No clubbing, No swelling Integumentary: No rashes, No breakdown Neurological: Normal speech, Normal strength at 5/5 x4 extr, Cranial nerves 3-12 intact Hospital Course: 63-year-old female with past medical history of lung cancer, brain tumor, history of cholecystitis previously, who was seen in the hospital last week with similar complaints came to ER with abdominal pain located in right upper quadrant without radiation associated with some nausea and vomiting. Patient was admitted last week with acute cholecystitis, with normal LFTs and normal MRCP with no CBD dilatation, MRCP Cholelithiasis is noted with gallbladder wall thickening present. Suggest correlation with clinical Evans's sign. Focal defect in the distal common bile duct likely choledocholithiasis. Was seen by Dr. Dee, is status post ERCP for Ultrasound revealing gallstones in gallbladder; plan to transfer to [facility] for surgery/GI/ MRCP evalaution Assessment Acute cholecystitis-plan to transfer to [facility] for surgery/GI/ MRCP evalaution Gallstones in the gallbladder, is status post ERCP with Dr. Dee Gastritis found during MRCP, PPI after discharge Pyloric stricture, duodenitis, multiple erosions, History of brain and lung cancer, CVA, INSTRUCTIONS: Physician Discharge Instructions: -Follow-up with GI after discharge for gastritis -Follow-up with surgery after discharge -Follow-up with PCP in 1 to 2 weeks -Please call Dr. Brown at [phone] if any questions regarding hospital stay -Please call nursing station at [phone] if any nursing or medication questions -Return to the emergency room if symptoms worsen Diet: ADA, low sodium Activity: Fall precautions Vital Signs/Physical Exam: Temp Pulse Resp BP Pulse Ox 97.3 F 60 18 122/67 98 04/12/24 05:40 04/12/24 05:40 04/12/24 06:16 04/12/24 05:40 04/12/24 06:16 Laboratory Data at Discharge: WBC 5.90 thou/uL (4.3-10.9) 04/11/24 04:48 Hgb 11.5 g/dL (12.0-15.0) L D 04/11/24 04:48 Hct 33.1 % (36.0-45.0) L 04/11/24 04:48 Plt Count 270 thou/uL (152-406) 04/11/24 04:48 PT 13.1 SECONDS (9.4-12.5) H 04/10/24 18:40 INR 1.18 04/10/24 18:40 APTT 38.6 SECONDS (24.3-36.9) H 04/10/24 18:40 Sodium 143 mEq/L (136-145) 04/11/24 04:48 Potassium 4.1 mEq/L (3.5-5.1) D 04/11/24 04:48 BUN 10 mg/dL (7-18) 04/11/24 04:48 Creatinine 0.53 mg/dL (0.55-1.02) L 04/11/24 04:48 Glucose 115 mg/dL (74-106) H 04/11/24 04:48 Phosphorus 2.9 mg/dL (2.5-4.9) 04/11/24 04:48 Magnesium 2.1 mg/dL (1.6-2.4) 04/11/24 04:48 Total Bilirubin 0.6 mg/dL (0.2-1.0) 04/11/24 04:48 AST 307 U/L (15-37) H 04/11/24 04:48 ALT 199 U/L (13-56) H 04/11/24 04:48 Alkaline Phosphatase 248 U/L (45-117) H 04/11/24 04:48 Lipase 33 U/L (13-75) 04/10/24 16:20 Home Medications: Aspirin/Dipyridamole [Aspirin-Dipyridam ER 25-200 mg] 1 tab PO BID 04/04/24 Atorvastatin Calcium 40 mg PO BEDTIME 04/04/24 Ciprofloxacin HCl [Cipro 500 MG Tablet] 500 mg PO BID #20 tab 04/04/24 metroNIDAZOLE [Flagyl] 500 mg PO Q8H #30 tab 04/04/24 Physician Discharge Instructions: 63-year-old female with past medical history of lung cancer, brain tumor, history of cholecystitis previously, who was seen in the hospital last week with similar complaints came to ER with abdominal pain located in right upper quadrant without radiation associated with some nausea and vomiting. Patient was admitted last week with acute cholecystitis, with normal LFTs and normal MRCP with no CBD dilatation, MRCP Cholelithiasis is noted with gallbladder wall thickening present. Suggest correlation with clinical Evans's sign. Focal defect in the distal common bile duct likely choledocholithiasis. Was seen by Dr. Dee, is status post ERCP for Ultrasound revealing gallstones in gallbladder; plan to transfer to [facility] for surgery/GI/ MRCP evalaution Assessment Acute cholecystitis-plan to transfer to [facility] for surgery/GI/ MRCP evalaution Gallstones in the gallbladder, is status post ERCP with Dr. Dee Gastritis found during MRCP, PPI after discharge Pyloric stricture, duodenitis, multiple erosions, History of brain and lung cancer, CVA, INSTRUCTIONS: Physician Discharge Instructions: -plan to transfer to [facility] for surgery/GI/ MRCP evalaution -Follow-up with GI after discharge for gastritis -Follow-up with surgery after discharge -Follow-up with PCP in 1 to 2 weeks -Please call Dr. Brown at [phone] if any questions regarding hospital stay -Please call nursing station at [phone] if any nursing or medication questions -Return to the emergency room if symptoms worsen Diet: ADA, low sodium Activity: Fall precautions Diet: AHA Activity: Fall precautions Followup: NONE,NONE [Primary Care Provider] - Time spent managing pt's care (in minutes): 45
--- NOTE | 2024-04-12 08:45 | P.PN ---
Date of Service: 04/12/24 subjective N.p.o. for MRCP, today at bedside, pain controlled with prn analgesia Review of Systems 10-point ROS is otherwise unremarkable unless listed HPI Physical Examination - Vital Signs reviewed - Physical Exam General: Alert, Oriented x3, afebrile HEENT: Atraumatic, Normocephalic Respiratory: Clear to auscultation bilaterally, Equal, Unlabored Capillary refill: <2 Seconds Gastrointestinal: Mild RUQ tenderness, +bowel sounds, Musculoskeletal: No clubbing, No swelling Integumentary: No rashes, No breakdown Neurological: Normal speech, Normal strength at 5/5 x4 extr, Assessment and Plan - Plan Acute cholecystitis Cholelithiasis Transaminitis Surgical consult, NPO Ultrasound positive for acute cholecystitis with gallstones CBD with moderate dilated 0.7 IV hydration, Zosyn, as needed analgesics, antiemetic Plan for laparoscopic cholecystectomy after ERCP 04/12 04/11 MR CHOLANGIOGRAM BILE DUCTS: 5 mm signal defect in the distal common bile duct likely a stone. GI consult for ERCP-Dr Dee 04/12 keep pt NPO for today 04/12 plan for acute cholecystectomy Hypokalemia improved Monitor on telemetry Replace potassium prn Potassium replacement protocol History of malignancies Supportive management GI/DVT prophylaxis Advanced directive full code Discharge Plan: Home Plan to discharge in: 48 Hours - Advance Directives Does patient have a Living Will: No Does patient have a Durable POA for Healthcare: No - Code Status/Comfort Care Code Status: Full Code Time Spent Managing Pts Care (In Minutes): 25 <Rachel Sharma - Last Filed: 04/14/24 21:22> Patient was seen and examined. Events of the last 24 hours have been noted. Spoke with with [place] regarding patient's clinical picture after evaluating and examining the patient independently. I performed a substantial part of the MDM during this patient's care today. I personally made or approved the documented management plan and acknowledge its risk of complications. I agree with the findings and documentation provided in the [place]'s notes. Plan for ERCP. GI consulted. Afterwards plan for laparoscopic cholecystectomy. <Shahram Brown - Last Filed: 04/15/24 17:42>
--- NOTE | 2024-04-12 09:09 | PN ---
Date of Progress Note: 04/12/2024 Subjective: The patient is awake, alert, hungry. She is waiting for ERCP. Objective: Vital Signs: Stable. Afebrile. Abdomen: clean rice grader and reel tender in the epigastric and right upper quadrant, but no peritonitis. Laboratory Data: Reviewed from yesterday. Assessment: Acute on chronic cholecystitis and cholelithiasis with choledocholithiasis. Recommendations: Continue antibiotics. Await ERCP following which we will proceed with a laparoscop ic cholecystectomy approximately 24 hours later. /MODL Voice ID: [id number] Report ID: [id number]
[2024-04-12] MEDS ORDERED: GLUCAGON 1 MG/VIAL ONE (16:56)
[2024-04-12] MEDS ORDERED: MIDAZOLAM HCL 2 MG/2 ML INJ ONE (17:24)
[2024-04-12] MEDS ORDERED: LIDOCAINE 1% MPF 5 ML VIAL ONE (17:24)
[2024-04-12] MEDS ORDERED: LIDOCAINE 1% MPF 2 ML AMPULE ONE (17:24)
[2024-04-12] MEDS ORDERED: propofoL 200 MG/20 ML VIAL IV ONE ×2 (17:24→18:35)
[2024-04-12] MEDS: Ringers Lactate 1,000 ML IV ONE (17:25)
[2024-04-12] MEDS ORDERED: SIMETHICONE 40 MG/ 0.6 ML ONE (17:59)
[2024-04-12] MEDS: GENTAMICIN SULF 80 MG/2ML INJ ONE (18:02)
--- NOTE | 2024-04-12 20:59 | RAD REPORT ---
EXAM: Fluoroscopy use, Fluoroscopy ERCP HISTORY: ERCP COMPARISON: None FINDINGS: Multiple images were sent to PACS, during a fluoroscopically guided procedure. No radiologi st was involved in protocoling or performance of the study, and no radiologist was present for the duration of the procedure. No interpretation of the saved images will be provided. Total fluoroscopy time: 0.57 minutes. IMPRESSION: Documentation of fluoroscopy use as above.
[2024-04-13 05:20] LABS: Absolute Eosinophils 0.1 K/uL (0-0.5); Absolute Lymphocytes (CBC) 2.1 K/uL (0.7-4.9); Absolute Monocytes 0.4 K/uL (0.1-1.3); Absolute Neutrophil 4.4 K/uL (1.8-8.0); Basophils % 0.6 % (0-1.3); Eosinophils % 0.9 % (0-4.4); Hematocrit 34.7 % (36.0-45.0); Hemoglobin 11.6 g/dL (12.0-15.0); Lymphocytes % 29.6 % (15.3-44.8); MCH 30.2 pg (27.0-35.0); MCHC 33.4 g/dL (32.0-36.0); MCV 90.5 fL (80-100); Neutrophils % 62.9 % (41.7-73.7); Platelets 274 thou/uL (152-406); RBC Red Blood Cell Count 3.83 M/uL (3.86-4.86)
[2024-04-13 05:40] LABS: ALT/SGPT 93 U/L (13-56); AST/SGOT 44 U/L (15-37); Albumin 2.7 g/dL (3.4-5.0); Albumin/Globulin Ratio 0.9 (1.1-1.8); Alkaline Phosphatase 173 U/L (45-117); Anion Gap 7.4 mEq/L (5.0-15.0); BUN Blood Urea Nitrogen 5 mg/dL (7-18); Bicarbonate 25 mEq/L (21-32); Bilirubin Total 0.5 mg/dL (0.2-1.0); Glomerular Filtration Rate 105 ml/min (=/>90); Glucose Level 84 mg/dL (74-106); Lipase 16 U/L (13-75); Magnesium 2.1 mg/dL (1.6-2.4); Phosphorus 2.3 mg/dL (2.5-4.9); Potassium 3.4 mEq/L (3.5-5.1); Protein, Total 5.7 g/dL (6.4-8.2); Sodium Level 140 mEq/L (136-145)
[2024-04-13 05:41] LABS: Bilirubin Direct < 0.2 mg/dL (0-0.2); Bilirubin Indirect, Calculated 0.3 mg/dL (0.2-0.8)
--- NOTE | 2024-04-13 09:56 | P.PN ---
Date of Service: 04/13/24 subjective pending transfer to [facility] for Surgery/GI pain controlled prn analgesia, Review of Systems 10-point ROS is otherwise unremarkable unless listed HPI Physical Examination - Vital Signs reviewed - Physical Exam General: Alert, Oriented x3, HEENT: Atraumatic, Normocephalic Respiratory: Clear to auscultation bilaterally, non labored Capillary refill: <2 Seconds Gastrointestinal: RUQ tenderness, +bowel sounds, Musculoskeletal: No clubbing, No swelling, generalized weakness Integumentary: No rashes, No breakdown Neurological: Normal speech, Normal strength at 5/5 x4 extr, Assessment and Plan - Plan Acute cholecystitis Cholelithiasis Transaminitis Surgical consult, Ultrasound positive for acute cholecystitis with gallstones, CBD with moderate dilated 0.7 IV hydration, Zosyn, as needed analgesics, antiemetic GI consult, ERCP 04/12 complicated by stricture, 04/11 MR CHOLANGIOGRAM BILE DUCTS: 5 mm signal defect in the distal common bile duct likely a ston Plan to transfer to [facility] for GI/Surg consult adv to low fat diet Hypokalemia improved Monitor on telemetry Replace potassium prn Potassium replacement protocol microcytic anemia trend HH 13.->115->11.6 transaminitis improving LFT AST 371->307->44 ALT 136->199->93 alk phos 269->248->173 History of malignancies Supportive management GI/DVT prophylaxis Advanced directive full code Discharge Plan: Home Plan to discharge in: 48 Hours - Advance Directives Does patient have a Living Will: No Does patient have a Durable POA for Healthcare: No - Code Status/Comfort Care Code Status: Full Code Time Spent Managing Pts Care (In Minutes): 25 <Rachel Sharma - Last Filed: 04/14/24 21:34> Patient was seen and examined. Events of the last 24 hours have been noted. Spoke with with [place] regarding patient's clinical picture after evaluating and examining the patient independently. I performed a substantial part of the MDM during this patient's care today. I personally made or approved the documented management plan and acknowledge its risk of complications. I agree with the findings and documentation provided in the [place]'s notes. Unable to dilate the pylorus to get through it for 30 duct exploration during the ERCP. Commending transfer to tertiary care where they can do pyloric dilatation and then the ERCP. Consulted family and they want patient to go to [facility]. <Shahram Brown - Last Filed: 04/15/24 17:43>
[2024-04-13] MEDS: KCL 20 MEQ/100 mL IVPB 20 MEQ/100 ML BAG IV SCH (10:15)
--- NOTE | 2024-04-13 11:02 | PN ---
Date of Progress Note: 04/13/2024 Subjective: The patient is awake, alert. Pain is better. Yesterday, patient had an attempted ERCP, however, was found to have pyloric stenosis and the scope could not be passed through the stenosis a s the tissue was somewhat friable. Therefore, the procedure was aborted and currently the plan is to transfer the patient to [facility]. We are awaiting approval from their facility. Objective: Vital Signs: Stable, afebrile. Abdomen: Less tender. No peritonitis. Laboratory Data: Reviewed. Her LFTs are actually improving slightly. White count is normal. Assessment: Acute cholecystitis, cholelithiasis, choledocholithiasis. Recommendations: Continue antibiotics. 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 Plan of care discussed in detail with the patient, family, and Dr. Brown. /MODL Voice ID: [id number] Report ID: [id number]
[2024-04-13] MEDS: POTASSIUM 25 MEQ EFFERV TAB PO ONE (12:16)
[2024-04-13] MEDS: POTASS/SODIUM PHOSPHATE 1 PKT POWD.PACK PO SCH (12:16)
[2024-04-13 18:24] LABS: Specific Gravity 1.008 (1.005-1.030); Urine Bilirubin NEGATIVE (Negative); Urine Blood Negative (Negative); Urine Clarity Clear (Clear); Urine Color Colorless (Yellow); Urine Glucose NEGATIVE (Negative); Urine Ketones NEGATIVE (Negative); Urine Microscopic Reflex YN NO UMIC; Urine Nitrite NEGATIVE (Negative); Urine Protein NEGATIVE (Negative); Urine Urobilinogen Normal (Normal); Urine pH 7.5 (5.0-7.0)
--- NOTE | 2024-04-14 10:18 | PN ---
Date of Progress Note: 04/14/2024 Subjective: The patient is awake, alert. Pain is better. Objective: Vital Signs: Stable, afebrile. Abdomen: Minimal tenderness. No peritonitis. Assessment: Acute on chronic cholecystitis and cholelithiasis with choledocholithiasis. Recommendations: The patient is awaiting transfer to [facility]. In the meantime, the patient clinically looks well. We will go ahead and advance her diet to see if she tolerates it to check her labs and c ontinue antibiotics until she is transferred for definitive ERCP procedure following which the patien t will need her cholecystectomy. /MODL Voice ID: [id number] Report ID: [id number]
--- NOTE | 2024-04-14 21:40 | P.PN ---
Date of Service: 04/14/24 subjective pending transfer to [facility] for Surgery/GI pain controlled prn analgesia, Review of Systems 10-point ROS is otherwise unremarkable unless listed HPI Physical Examination - Vital Signs reviewed - Physical Exam General: Alert, Oriented x3, HEENT: Atraumatic, Normocephalic Respiratory: Clear to auscultation bilaterally, non labored Capillary refill: <2 Seconds Gastrointestinal: RUQ tenderness, +bowel sounds, Musculoskeletal: No clubbing, No swelling, generalized weakness Integumentary: No rashes, No breakdown Neurological: Normal speech, Normal strength at 5/5 x4 extr, Assessment and Plan - Plan Acute cholecystitis Cholelithiasis Transaminitis Surgical consult, Ultrasound positive for acute cholecystitis with gallstones, CBD with moderate dilated 0.7 IV hydration, Zosyn, as needed analgesics, antiemetic GI consult, ERCP 04/12 complicated by stricture, 04/11 MR CHOLANGIOGRAM BILE DUCTS: 5 mm signal defect in the distal common bile duct likely a ston Plan to transfer to [facility] for GI/Surg consult adv to low fat diet Hypokalemia improved Monitor on telemetry Replace potassium prn Potassium replacement protocol microcytic anemia trend HH 13.->115->11.6 transaminitis improving LFT AST 371->307->44 ALT 136->199->93 alk phos 269->248->173 History of malignancies Supportive management GI/DVT prophylaxis Advanced directive full code Discharge Plan: Home Plan to discharge in: 48 Hours - Advance Directives Does patient have a Living Will: No Does patient have a Durable POA for Healthcare: No - Code Status/Comfort Care Code Status: Full Code Time Spent Managing Pts Care (In Minutes): 25 <Rachel Sharma - Last Filed: 04/14/24 21:35> Patient was seen and examined. Events of the last 24 hours have been noted. Spoke with with [place] regarding patient's clinical picture after evaluating and examining the patient independently. I performed a substantial part of the MDM during this patient's care today. I personally made or approved the documented management plan and acknowledge its risk of complications. I agree with the findings and documentation provided in the [place]'s notes. Still waiting for transfer at this time. Hopefully will have a bed available tomorrow. [facility] said he will take about 72 hours for placement to occur. Anticipating placement over the next 48 hours. <Shahram Brown - Last Filed: 04/15/24 17:43>
[2024-04-15 05:40] LABS: Absolute Basophils 0.1 K/uL (0-0.5); Absolute Eosinophils 0.1 K/uL (0-0.5); Absolute Lymphocytes (CBC) 2.2 K/uL (0.7-4.9); Absolute Monocytes 0.5 K/uL (0.1-1.3); Absolute Neutrophil 3.2 K/uL (1.8-8.0); Basophils % 1.1 % (0-1.3); Hematocrit 36.4 % (36.0-45.0); Hemoglobin 12.1 g/dL (12.0-15.0); Lymphocytes % 36.3 % (15.3-44.8); MCH 30.3 pg (27.0-35.0); MCHC 33.2 g/dL (32.0-36.0); MCV 91.5 fL (80-100); MPV 8.1 fL (7.6-11.3); Monocytes % 8.5 % (3.3-12.3); Neutrophils % 53.1 % (41.7-73.7); Platelets 254 thou/uL (152-406); RBC Red Blood Cell Count 3.98 M/uL (3.86-4.86); Red Cell Distribution Width 14.3 % (12.1-15.2)
[2024-04-15 05:59] LABS: ALT/SGPT 60 U/L (13-56); AST/SGOT 14 U/L (15-37); Albumin 2.6 g/dL (3.4-5.0); Albumin/Globulin Ratio 0.8 (1.1-1.8); Alkaline Phosphatase 128 U/L (45-117); Anion Gap 8.2 mEq/L (5.0-15.0); BUN Blood Urea Nitrogen 5 mg/dL (7-18); Bicarbonate 26 mEq/L (21-32); Bilirubin Total 0.2 mg/dL (0.2-1.0); Globulin 3.2 g/dL (2.3-3.5); Glomerular Filtration Rate 93 ml/min (=/>90); Glucose Level 91 mg/dL (74-106); Lipase 38 U/L (13-75); Magnesium 2.2 mg/dL (1.6-2.4); Phosphorus 3.1 mg/dL (2.5-4.9); Potassium 4.2 mEq/L (3.5-5.1); Protein, Total 5.8 g/dL (6.4-8.2); Sodium Level 142 mEq/L (136-145)
[2024-04-15 06:04] LABS: Bilirubin Direct < 0.2 mg/dL (0-0.2)
--- NOTE | 2024-04-15 08:13 | P.PN ---
Date of Service: 04/15/24 subjective pending transfer to [facility] for Surgery/GI pain controlled prn analgesia, Review of Systems 10-point ROS is otherwise unremarkable unless listed HPI Physical Examination - Vital Signs reviewed - Physical Exam General: Alert, Oriented x3, HEENT: Atraumatic, Normocephalic Respiratory: Clear to auscultation bilaterally, non labored Capillary refill: <2 Seconds Gastrointestinal: RUQ tenderness, +bowel sounds, Musculoskeletal: No clubbing, No swelling, generalized weakness Integumentary: No rashes, No breakdown Neurological: Normal speech, Normal strength at 5/5 x4 extr, Assessment and Plan - Plan Acute cholecystitis Cholelithiasis Transaminitis Surgical consult, Ultrasound positive for acute cholecystitis with gallstones, CBD with moderate dilated 0.7 IV hydration, Zosyn, as needed analgesics, antiemetic GI consult, ERCP 04/12 complicated by stricture, 04/11 MR CHOLANGIOGRAM BILE DUCTS: 5 mm signal defect in the distal common bile duct likely a ston Plan to transfer to [facility] for GI/Surg consult adv to low fat diet Hypokalemia improved Monitor on telemetry Replace potassium prn Potassium replacement protocol microcytic anemia trend HH 13.->115->11.6 transaminitis improving LFT AST 371->307->44 ALT 136->199->93 alk phos 269->248->173 History of malignancies Supportive management GI/DVT prophylaxis Advanced directive full code Discharge Plan: Home Plan to discharge in: 48 Hours - Advance Directives Does patient have a Living Will: No Does patient have a Durable POA for Healthcare: No - Code Status/Comfort Care Code Status: Full Code Time Spent Managing Pts Care (In Minutes): 25 <Rachel Sharma - Last Filed: 04/15/24 08:13> Patient was seen and examined. Events of the last 24 hours have been noted. Spoke with with [facility] regarding patient's clinical picture after evaluating and examining the patient independently. I performed a substantial part of the MDM during this patient's care today. I personally made or approved the documented management plan and acknowledge its risk of complications. I agree with the findings and documentation provided in the [facility]'s notes. Continue with discharge planning at this time. Awaiting to transfer to a tertiary care facility. <Shahram Brown - Last Filed: 04/15/24 17:44>
--- NOTE | 2024-04-15 09:56 | PN ---
Date of Progress Note: 04/15/2024 Subjective: The patient is awake, alert. No complaint. Tolerating diet. Objective: VITAL SIGNS: Stable, afebrile. ABDOMEN: Benign. Assessment: Acute on chronic cholecystitis and cholelithiasis and choledocholithiasis. Recommendations: Continue antibiotics as ordered. Await transfer to [facility] for an ERCP following which the patient will need a cholecystectomy. /MODL Voice ID: [id number] Report ID: [id number] [facility] CENTERJoanne
[2024-04-15] MEDS: HYDROMORPHONE HCL 1 MG/ML INJ IV ONE (14:55)
[2024-04-16 08:20] LABS: Absolute Basophils 0.1 K/uL (0-0.5); Absolute Eosinophils 0.1 K/uL (0-0.5); Absolute Lymphocytes (CBC) 2.2 K/uL (0.7-4.9); Absolute Monocytes 0.4 K/uL (0.1-1.3); Absolute Neutrophil 4.6 K/uL (1.8-8.0); Basophils % 1.3 % (0-1.3); Eosinophils % 0.9 % (0-4.4); Hematocrit 38.2 % (36.0-45.0); Hemoglobin 12.3 g/dL (12.0-15.0); Lymphocytes % 30.3 % (15.3-44.8); MCH 29.7 pg (27.0-35.0); MCHC 32.2 g/dL (32.0-36.0); MCV 92.3 fL (80-100); MPV 8.4 fL (7.6-11.3); Neutrophils % 61.5 % (41.7-73.7); Platelets 294 thou/uL (152-406); RBC Red Blood Cell Count 4.13 M/uL (3.86-4.86); Red Cell Distribution Width 14.6 % (12.1-15.2)
[2024-04-16 08:33] LABS: Albumin/Globulin Ratio 0.9 (1.1-1.8); Anion Gap 7.4 mEq/L (5.0-15.0); Bilirubin Total 0.2 mg/dL (0.2-1.0); Globulin 3.4 g/dL (2.3-3.5); Magnesium 2.3 mg/dL (1.6-2.4); Potassium 4.4 mEq/L (3.5-5.1); Protein, Total 6.4 g/dL (6.4-8.2)
--- NOTE | 2024-04-16 11:59 | P.PN ---
Subjective Date of Service: 04/16/24 Chief Complaint: Abdominal Pain Subjective: No new changes (continues with a fair amount of pain to right upper quadrant) Review of Systems 10-point ROS is otherwise unremarkable General: As per HPI Eyes: Unremarkable ENT: Unremarkable Respiratory: Unremarkable Cardiovascular: Unremarkable Gastrointestinal: Nausea, Abdominal Pain Genitourinary: Unremarkable Musculoskeletal: Unremarkable Integumentary: Unremarkable Neurological: Unremarkable Lymphatics: Unremarkable Physical Examination - Vital Signs Temperature: 96.8 F Blood Pressure: 116/62 Pulse: 56 Respirations: 16 Pulse Ox (%): 98 - Physical Exam General: Alert, In no apparent distress, Oriented x3 HEENT: Atraumatic, Normocephalic Neck: Supple Respiratory: Normal air movement Cardiovascular: Regular rate/rhythm Capillary refill: <2 Seconds Gastrointestinal: Tenderness (RUQ) Musculoskeletal: No clubbing Integumentary: No rashes Neurological: Normal speech, Normal tone, Normal affect Lymphatics: No axilla or inguinal lymphadenopathy External genitalia: Deferred Rectal: Deferred Assessment And Plan - Plan Assessment and Plan - Plan Acute cholecystitis Cholelithiasis Elevated LFTs Ultrasound positive for acute cholecystitis with gallstones CBD with moderate dilated 0.7, choledocolithiasis eating sparingly IV hydration consult with Dr. Treviño, recommends transfer for GI/Surgery 2nd to choledocolithiasis Started on Zosyn repeat CT today 04/16/24, awaiting insurance auth for transfer Hypokalemia Monitor on telemetry Replace potassium Potassium replacement protocol History of malignancies Supportive management GI/DVT prophylaxis Advanced directive full code Discharge Plan: Transfer Plan to discharge in: 24 Hours
--- NOTE | 2024-04-16 14:18 | RAD REPORT ---
EXAMINATION: CT Abdomen Pelvis W Contrast CLINICAL INDICATION: Female, 63 years old. acute cholecystitis TECHNIQUE: CT abdomen and pelvis was performed, after the administration of 100 mL Isovue 300 intrave nously, as per department protocol. Axial, sagittal and coronal reconstructions were obtained. One or more of the following dose reduction techniques were used: Automated exposure control, adjustment of the mA and kV according to patient size, and iterative reconstruction. Unless otherwise specified, incidental findings do not require dedicated imaging follow-up. COMPARISON: CT abdomen and pelvis 04/03/2024. Abdomen ultrasound 04/10/2024 FINDINGS: LOWER CHEST: The visualized lung bases are clear. Trace layering left pleural effusion. LIVER: Normal in size and contour. Stable hyperenhancing 1.9 cm lesion within segment 4A, and other s maller hyperenhancing lesion inferiorly, not characterized but suggesting small hemangiomata. No other suspicious focal lesion. BILIARY SYSTEM: Improved gallbladder distention. Wall thickening especially at the fundus again seen. Mucosal hyperenhancement and heterogeneous mildly hyperdense content within the lumen, may represent sludge or nonmineralized calculi. No adjacent fluid collections. No evidence of intra or ex trahepatic biliary ductal dilation on CT.. SPLEEN: Normal size. No focal lesion. PANCREAS: No mass, ductal dilation, or shawn-pancreatic fluid. ADRENALS: Normal; no mass. KIDNEYS: Normal size and contour. No hydronephrosis. URINARY BLADDER: Unremarkable. GASTROINTESTINAL TRACT: No evidence of free air, significant intra-abdominal free fluid, bowel obstru ction or abscess. APPENDIX: Normal appendix. LYMPH NODES: No lymphadenopathy. MUSCULOSKELETAL: No acute or suspicious osseous abnormality. ADDITIONAL FINDINGS: Moderate to advanced atherosclerotic calcifications. IMPRESSION: Improvement of gallbladder distention with some residual wall thickening/edema, again concerning for acute/recent cholecystitis. Trace layering left pleural effusion. Other stable findings as above.
[2024-04-17] MEDS: MORPHINE 2 MG/ML SYR IV PRN (07:49)
--- NOTE | 2024-04-17 18:25 | P.PN ---
Date of Service: 04/17/24 Subjective Date of Service: 04/17/24 Chief Complaint: Abdominal Pain Subjective: No new changes (continues with a fair amount of pain to right upper quadrant) Review of Systems 10-point ROS is otherwise unremarkable General: As per HPI Eyes: Unremarkable ENT: Unremarkable Respiratory: Unremarkable Cardiovascular: Unremarkable Gastrointestinal: Nausea, Abdominal Pain Genitourinary: Unremarkable Musculoskeletal: Unremarkable Integumentary: Unremarkable Neurological: Unremarkable Lymphatics: Unremarkable Physical Examination - Vital Signs reviewed - Physical Exam General: Alert, In no apparent distress, Oriented x3 HEENT: Atraumatic, Normocephalic Neck: Supple Respiratory: Normal air movement Cardiovascular: Regular rate/rhythm Capillary refill: <2 Seconds Gastrointestinal: Tenderness (RUQ) Musculoskeletal: No clubbing Integumentary: No rashes Neurological: Normal speech, Normal tone, Normal affect Lymphatics: No axilla or inguinal lymphadenopathy External genitalia: Deferred Rectal: Deferred Assessment And Plan Acute cholecystitis Cholelithiasis Elevated LFTs Ultrasound positive for acute cholecystitis with gallstones CBD with moderate dilated 0.7, choledocolithiasis eating sparingly - regular diet IV hydration consult with Dr. Treviño, recommends transfer for GI/Surgery 2nd to choledocolithiasis Started on Zosyn repeat CT today 04/16/24, awaiting insurance auth for transfer 04/17/[address] improved. Pt continues to require Morphine for RUQ abd pain. Continue to await auth for transfer that was accepted to [facility] Hypokalemia Monitor on telemetry Replace potassium Potassium replacement protocol History of malignancies Supportive management GI/DVT prophylaxis Advanced directive full code Discharge Plan: Transfer Plan to discharge in: 24 Hours
[2024-04-17 20:41] VITALS: O2SAT 97
[2024-04-18 08:54] VITALS: BP 102/52; TEMP 98
[2024-04-18 09:38] LABS: Absolute Basophils 0.1 K/uL (0-0.5); Absolute Eosinophils 0.1 K/uL (0-0.5); Absolute Lymphocytes (CBC) 2.5 K/uL (0.7-4.9); Absolute Monocytes 0.4 K/uL (0.1-1.3); Absolute Neutrophil 4.1 K/uL (1.8-8.0); Basophils % 1.3 % (0-1.3); Hematocrit 38.6 % (36.0-45.0); Hemoglobin 12.5 g/dL (12.0-15.0); Lymphocytes % 34.8 % (15.3-44.8); MCH 29.7 pg (27.0-35.0); MCHC 32.5 g/dL (32.0-36.0); MCV 91.4 fL (80-100); MPV 8.3 fL (7.6-11.3); Neutrophils % 56.9 % (41.7-73.7); Nucleated Red Blood Cells % 0.1 % (0-0); Platelets 282 thou/uL (152-406); RBC Red Blood Cell Count 4.22 M/uL (3.86-4.86); Red Cell Distribution Width 14.3 % (12.1-15.2)
[2024-04-18 09:52] LABS: Anion Gap 10.4 mEq/L (5.0-15.0); Potassium 4.4 mEq/L (3.5-5.1)
[2024-04-18 10:11] LABS: Differential Total Cells Count 100; Segmented Neutrophils 47 % (40-80)
[2024-04-18 10:12] LABS: Atypical Lymphocytes 1 %; Blood Morphology Comment NOT SEEN (NOT SEEN); Eosinophils 1 % (0-3); Lymphocytes 41 % (15-42); Monocytes 9 % (0-10); Platelet Estimate ADEQ
--- NOTE | 2024-04-18 18:29 | P.DS ---
Admission Date: 04/10/24 Discharge Date: 04/18/24 Reason for Admission: Abdominal Pain Consultations: Dr. Treviño, Dr. Hunter Hospital Course: 63-year-old female with past medical history of lung cancer, brain tumor, history of cholecystitis previously, who was seen in the hospital last week with similar complaints came to ER with abdominal pain located in right upper quadrant without radiation associated with some nausea and vomiting. Patient was admitted with acute cholecystitis, with abnormal LFTs and abnormal MRCP with CBD dilatation, "GALLBLADDER: Several gallbladder stones are seen with gallbladder wall thickening present. Trace pericholecystic fluid is also likely present. BILE DUCTS: 5 mm signal defect in the distal common bile duct likely a stone." Suggest correlation with clinical Evans's sign. Focal defect in the distal common bile duct likely choledocholithiasis." She was seen by Dr. Hunter, 04/12/24, and had an attempted ERCP, however, was found to have pyloric stenosis and the scope could not be passed through the stenosis as the tissue was somewhat friable. Therefore, the procedure was aborted and currently the plan is to transfer the patient. Her liver enzymes did normalize and she was able to tolerate p.o. but was still needing morphine for right upper quadrant pain. <Audelia Urbano - Last Filed: 04/18/24 18:23> Admission Date: 04/10/24 Discharge Date: 04/19/24 Hospital Course: Pt seen and examined. I agree with the note by the [employer]. Pt presented with abdominal pain due to acute cholecystitis with abnormal LFTs and abnormal MRCP with CBD dilatation, "GALLBLADDER: Several gallbladder stones are seen with gallbladder wall thickening present and focal defect in the distal common bile duct likely choledocholithiasis." She was transferred to [facility] for ERCP. Pt is medically stable for transfer. <Beth Chaudhry - Last Filed: 04/19/24 22:07> Disposition: TRANSFER TO [facility] Discharge Condition: GOOD Vital Signs/Physical Exam: Temp Pulse Resp BP Pulse Ox 98.0 F 55 12 102/52 L 96 04/18/24 08:00 04/18/24 08:00 04/18/24 08:00 04/18/24 08:00 04/18/24 08:00 General: Alert, In no apparent distress, Oriented x3 HEENT: Atraumatic, Normocephalic Neck: Supple Respiratory: Clear to auscultation bilaterally, Normal air movement Cardiovascular: No edema, Regular rate/rhythm, Normal S1 S2 Capillary refill: <2 Seconds Gastrointestinal: Normal bowel sounds, Tenderness (RUQ) Musculoskeletal: No clubbing, No swelling Integumentary: No rashes Neurological: Normal speech, Normal tone, Normal affect Lymphatics: No axilla or inguinal lymphadenopathy External genitalia: Deferred Rectal: Deferred Laboratory Data at Discharge: WBC 7.30 thou/uL (4.3-10.9) 04/18/24 09:24 Hgb 12.5 g/dL (12.0-15.0) 04/18/24 09:24 Hct 38.6 % (36.0-45.0) 04/18/24 09:24 Plt Count 282 thou/uL (152-406) 04/18/24 09:24 PT 13.1 SECONDS (9.4-12.5) H 04/10/24 18:40 INR 1.18 04/10/24 18:40 APTT 38.6 SECONDS (24.3-36.9) H 04/10/24 18:40 Sodium 141 mEq/L (136-145) 04/18/24 09:24 Potassium 4.4 mEq/L (3.5-5.1) 04/18/24 09:24 BUN 9 mg/dL (7-18) 04/18/24 09:24 Creatinine 0.58 mg/dL (0.55-1.02) 04/18/24 09:24 Glucose 125 mg/dL (74-106) H 04/18/24 09:24 Phosphorus 3.1 mg/dL (2.5-4.9) 04/15/24 05:19 Magnesium 2.3 mg/dL (1.6-2.4) 04/16/24 07:58 Total Bilirubin 0.2 mg/dL (0.2-1.0) 04/16/24 07:58 AST 22 U/L (15-37) 04/16/24 07:58 ALT 54 U/L (13-56) 04/16/24 07:58 Alkaline Phosphatase 120 U/L (45-117) H 04/16/24 07:58 Lipase 38 U/L (13-75) 04/15/24 05:19 <Urbano,Audelia Otis - Last Filed: 04/18/24 18:23> Vital Signs/Physical Exam: Temp Pulse Resp BP Pulse Ox 98.0 F 55 12 102/52 L 96 04/18/24 08:00 04/18/24 08:00 04/18/24 08:00 04/18/24 08:00 04/18/24 08:00 Laboratory Data at Discharge: WBC 7.30 thou/uL (4.3-10.9) 04/18/24 09:24 Hgb 12.5 g/dL (12.0-15.0) 04/18/24 09:24 Hct 38.6 % (36.0-45.0) 04/18/24 09:24 Plt Count 282 thou/uL (152-406) 04/18/24 09:24 PT 13.1 SECONDS (9.4-12.5) H 04/10/24 18:40 INR 1.18 04/10/24 18:40 APTT 38.6 SECONDS (24.3-36.9) H 04/10/24 18:40 Sodium 141 mEq/L (136-145) 04/18/24 09:24 Potassium 4.4 mEq/L (3.5-5.1) 04/18/24 09:24 BUN 9 mg/dL (7-18) 04/18/24 09:24 Creatinine 0.58 mg/dL (0.55-1.02) 04/18/24 09:24 Glucose 125 mg/dL (74-106) H 04/18/24 09:24 Phosphorus 3.1 mg/dL (2.5-4.9) 04/15/24 05:19 Magnesium 2.3 mg/dL (1.6-2.4) 04/16/24 07:58 Total Bilirubin 0.2 mg/dL (0.2-1.0) 04/16/24 07:58 AST 22 U/L (15-37) 04/16/24 07:58 ALT 54 U/L (13-56) 04/16/24 07:58 Alkaline Phosphatase 120 U/L (45-117) H 04/16/24 07:58 Lipase 38 U/L (13-75) 04/15/24 05:19 <Beth Chaudhry - Last Filed: 04/19/24 22:07> Diet: AHA Activity: Fall precautions <Audelia Urbano - Last Filed: 04/18/24 18:23> <eBth Chaudhry - Last Filed: 04/19/24 22:07> Home Medications: Aspirin/Dipyridamole [Aspirin-Dipyridam ER 25-200 mg] 1 tab PO BID 04/04/24 Atorvastatin Calcium 40 mg PO BEDTIME 04/04/24 Ciprofloxacin HCl [Cipro 500 MG Tablet] 500 mg PO BID #20 tab 04/04/24 metroNIDAZOLE [Flagyl] 500 mg PO Q8H #30 tab 04/04/24 Physician Discharge Instructions: 63-year-old female with past medical history of lung cancer, brain tumor, history of cholecystitis previously, who was seen in the hospital last week with similar complaints came to ER with abdominal pain located in right upper quadrant without radiation associated with some nausea and vomiting. Patient was admitted with acute cholecystitis, with abnormal LFTs and abnormal MRCP with CBD dilatation, "GALLBLADDER: Several gallbladder stones are seen with gallbladder wall thickening present. Trace pericholecystic fluid is also likely present. BILE DUCTS: 5 mm signal defect in the distal common bile duct likely a stone." Suggest correlation with clinical Evans's sign. Focal defect in the distal common bile duct likely choledocholithiasis." She was seen by Dr. Hunter, 04/12/24, and had an attempted ERCP, however, was found to have pyloric stenosis and the scope could not be passed through the stenosis as the tissue was somewhat friable. Therefore, the procedure was aborted and currently the plan is to transfer the patient. Her liver enzymes did normalize and she was able to tolerate p.o. but was still needing morphine for right upper quadrant pain. Assessment Acute cholecystitis-plan to transfer for surgery/GI/ MRCP evalaution Gallstones in the gallbladder, is status post aborted ERCP with Dr. Hunter Gastritis found during MRCP, PPI after discharge Pyloric stricture, duodenitis, multiple erosions, History of brain and lung cancer, CVA, INSTRUCTIONS: Physician Discharge Instructions: -plan to transfer for surgery/GI/ MRCP evalaution -Follow-up with GI after discharge for gastritis -Follow-up with surgery after discharge -Follow-up with PCP in 1 to 2 weeks -Please call Dr. Brown at [phone] if any questions regarding hospital stay -Please call nursing station at [phone] if any nursing or medication questions -Return to the emergency room if symptoms worsen Diet: ADA, low sodium Activity: Fall precautions Patient was accepted to [facility] and transferred via ambulance in no acute distress. Spouse at bedside. All questions have been answered regarding plan of care. Followup: NONE,NONE [Primary Care Provider] - Eliud Treviño MD [ACTIVE - CAN ADMIT] - 1-2 Weeks Rolf Hunter MD [ASSOCIATE-ACTIVE - CAN ADMIT] - 1-2 Weeks
== END 2024-04-18 12:53 | disposition short-term general hospital (02) | DRG 445 ==
LOC: ER 15:36 → ERHOLD 18:44 → 2ND 22:52
PROVIDERS: ADMIT Family Medicine; ATTEND Hospitalist
PROC: 0DB68ZX Excision of Stomach, Via Natural or Artificial Opening Endoscopic, Diagnostic (ICD-10-PCS; principal; 2024-04-12 17:30)
DX: K80.66 Calculus of gallbladder and bile duct with acute and chronic cholecystitis without obstruction (principal); K31.1 Adult hypertrophic pyloric stenosis; K29.70 Gastritis, unspecified, without bleeding; E87.6 Hypokalemia; D50.9 Iron deficiency anemia, unspecified; K26.9 Duodenal ulcer, unspecified as acute or chronic, without hemorrhage or perforation; F17.210 Nicotine dependence, cigarettes, uncomplicated; R74.01 Elevation of levels of liver transaminase levels; Z88.5 Allergy status to narcotic agent; Z79.82 Long term (current) use of aspirin; Z86.73 Personal history of transient ischemic attack (TIA), and cerebral infarction without residual deficits; Z79.899 Other long term (current) drug therapy; Z85.841 Personal history of malignant neoplasm of brain; Z85.118 Personal history of other malignant neoplasm of bronchus and lung
CPT/HCPCS: 36415; 74177; 74181; 76000; 76705; 80048; 80053; 80076; 81003; 82947; 83690; 83735; 84100; 85025; 85610; 85730; 88304; 88305; 88312; 99285; J1171; J1580; J1610; J1650; J2003; J2250; J2270; J2405; J2543; J2704; J3480; J7030; J7120; Q9967

== ENCOUNTER 2024-09-21 08:17 | Emergency (ER) | payer OTHER, SELFPAY ==
[2024-09-21 09:07] LABS: Absolute Basophils 0.1 K/uL (0-0.5); Absolute Lymphocytes (CBC) 2.2 K/uL (0.7-4.9); Absolute Monocytes 0.5 K/uL (0.1-1.3); Absolute Neutrophil 6.7 K/uL (1.8-8.0); Eosinophils % 0.1 % (0-4.4); Hematocrit 41.6 % (36.0-45.0); Lymphocytes % 23.4 % (15.3-44.8); MCHC 33.8 g/dL (32.0-36.0); MPV 8.3 fL (7.6-11.3); Monocytes % 5.4 % (3.3-12.3); Neutrophils % 70.1 % (41.7-73.7); Nucleated Red Blood Cells % 0.1 % (0-0); Platelets 287 thou/uL (152-406); RBC Red Blood Cell Count 4.67 M/uL (3.86-4.86); Red Cell Distribution Width 14.6 % (12.1-15.2)
[2024-09-21 09:20] LABS: ALT/SGPT 23 U/L (13-56); Albumin 3.6 g/dL (3.4-5.0); Alkaline Phosphatase 99 U/L (45-117); Anion Gap 9.7 mEq/L (5.0-15.0); BUN Blood Urea Nitrogen 11 mg/dL (7-18); Bicarbonate 26 mEq/L (21-32); Bilirubin Total 0.6 mg/dL (0.2-1.0); Globulin 3.7 g/dL (2.3-3.5); Glomerular Filtration Rate 87 ml/min (=/>90); Glucose Level 104 mg/dL (74-106); Magnesium 2.2 mg/dL (1.6-2.4); NT PRO-BNP 137 pg/mL (<125); Potassium 3.7 mEq/L (3.5-5.1); Protein, Total 7.3 g/dL (6.4-8.2); Sodium Level 141 mEq/L (136-145); Troponin High Sensitivity 4.1 pg/mL (<58.9)
[2024-09-21 09:23] LABS: AST/SGOT < 10 U/L (15-37); Bilirubin Direct < 0.2 mg/dL (0-0.2); Bilirubin Indirect, Calculated 0.4 mg/dL (0.2-0.8)
--- NOTE | 2024-09-21 09:37 | RAD REPORT ---
EXAM: CT Head Brain Wo Cont HISTORY: CONFUSED COMPARISON: None TECHNIQUE: Multiple contiguous axial images were obtained for a CT of the brain without contrast. Sag ittal and coronal reformats were performed. One or more of the following dose reduction techniques were used: Automated exposure control, adjus tment of the mA and kV according to patient size, and iterative reconstruction. Unless otherwise specified, incidental findings do not require dedicated imaging follow-up. FINDINGS: No evidence of hydrocephalus, or hyperdense intracranial hemorrhage. Hypodense right frontal convexity subdural collection measuring up to 5 thickness. Small left frontal /opercular convexity collection measuring 2-3 mm in thickness. No significant mass effect. Encephalomalacia in the high right parietal parasagittal region, underlying high right parietal crani otomy. Craniotomy flap shows depression by approximately 5 mm. Small foci of near CSF density the right subinsular white matter right lentiform nucleus. These findings may suggest sequelae of remote ischemia. Mild diffuse brain atrophy with ventricular prominence out of proportion to sulcal prominence. Moder ate periventricular and deep white matter nonspecific hypodensities, suggesting chronic microvascular ischemic changes present. Mottled appearance of hypodensity in the calvarium. The visualized paranasal sinuses and mastoid air cells are essentially clear. IMPRESSION: Hypodense right frontal convexity subdural 5 mm thick collection, could represent subacute subdural h emorrhage. Another left frontal/opercular convexity collection measuring 2-3 mm in thickness. No significant mass effect or midline shift. Nonspecific mottled appearance of the calvarium, could relate to sequelae of anemia versus other josh ow infiltrative process. Please correlate with CBC. Other chronic findings including sequelae of prior surgery or ischemia in the high right parietal lob e, and foci of hypodensity in the right basal ganglia and subinsular region, favored to represent sequelae of remote ischemia. THIS REPORT CONTAINS FINDINGS THAT MAY BE CRITICAL TO PATIENT CARE. The findings were verbally commun icated via telephone to Brandon Genao on 09/21/2024 9:30 AM.
--- NOTE | 2024-09-21 10:10 | RAD REPORT ---
EXAMINATION: CTA HEAD CLINICAL INDICATION: Female, 63 years old. confusion h/o CVA TECHNIQUE: Axial CT images were obtained through the head after intravenous contrast utilizing angiog raphic protocol with 3D post-processing (maximum intensity projection images, volume rendered images and/or shaded surface rendered images). One or more of the following dose reduction technique s were used: Automated exposure control, adjustment of the mA and/or kV according to patient size, and/or iterative reconstruction. Unless otherwise specified, incidental findings do not require dedic ated imaging follow-up. COMPARISON: No prior exam. FINDINGS: ICA: The petrous, cavernous, and supraclinoid segments of the bilateral internal carotid arteries are normal. RIDGE: Anterior cerebral arteries are normal bilaterally. The anterior communicating artery is patent. MCA: Middle cerebral arteries are normal bilaterally. BUSINESS INTELLIGENCE ARCHITECT: Posterior cerebral arteries are normal bilaterally. Vertebrobasilar: The vertebral arteries are patent. The basilar artery is normal in appearance. Right transverse and sigmoid dural venous sinuses are more prominent compared to the left, without ev idence of occlusion. 3D images confirm these findings. IMPRESSION: No evidence of large vessel occlusion or hemodynamically significant stenosis.
--- NOTE | 2024-09-21 10:15 | EDPHYS ---
Physician Documentation [facility] Name: Azeb Angel Age: 63 yrs Sex: Female : 1960 Arrival Date: 09/21/2024 Time: 08:17 Bed 2 Private MD: ED Physician Brandon Genao HPI: 09/21 09:19 This 63 yrs old Female presents to ER via Wheelchair with complaints of hallucinations, sp3 altered mental status. 09:19 63-year-old female with history of CVA last year, prior "lung and brain cancer" treated sp3 in [place] with chemotherapy and radiation in 2003 with no relapse known, presents to the ED with chief complaint hallucinations and confusion since yesterday evening. states that she thinks there are "which is coming out of the wall" and is just very confused. No reports of fever, trauma, isolated weakness or numbness or other neurological complaint, drug use, alcohol use, vomiting, diarrhea, or any other signs or symptoms on ROS at this time. Limited history and physical and ROS secondary to being a poor historian.. Historical: - Allergies: 08:36 Codeine; ap3 08:36 Ibuprofen; ap3 - Home Meds: 08:36 None [Active]; ap3 - PMHx: 08:36 brain and lung cancer; ap3 - Immunization history:: Adult Immunizations unknown. - Infectious Disease History:: Denies. - Social history:: Smoking status: Patient reports the use of cigarette tobacco products, smokes one-half pack cigarettes per day. ROS: 09:20 Unable to obtain ROS due to altered mental status, sp3 Exam: 09:20 Constitutional: This is a well developed, well nourished patient who is awake, alert, sp3 and in no acute distress. Eyes: Pupils equal round and reactive to light, extra-ocular motions intact. Lids and lashes normal. Conjunctiva and sclera are non-icteric and not injected. Cornea within normal limits. Periorbital areas with no swelling, redness, or edema. Neck: Trachea midline, no thyromegaly or masses palpated, and no cervical lymphadenopathy. Supple, full range of motion without nuchal rigidity, or vertebral point tenderness. No Meningismus. Chest/axilla: Normal chest wall appearance and motion. Nontender with no deformity. No lesions are appreciated. Cardiovascular: Regular rate and rhythm with a normal S1 and S2. No gallops, murmurs, or rubs. Normal PMI, no JVD. No pulse deficits. Respiratory: Lungs have equal breath sounds bilaterally, clear to auscultation and percussion. No rales, rhonchi or wheezes noted. No increased work of breathing, no retractions or nasal flaring. Abdomen/GI: Soft, non-tender, with normal bowel sounds. No distension or tympany. No guarding or rebound. No evidence of tenderness throughout. Back: No spinal tenderness. No costovertebral tenderness. Full range of motion. Skin: Warm, dry with normal turgor. Normal color with no rashes, no lesions, and no evidence of cellulitis. MS/ Extremity: Pulses equal, no cyanosis. Neurovascular intact. Full, normal range of motion. 09:20 Head/face: Left-sided facial droop old. No new or other deficits noted.. 09:20 Neuro: Normal neurological exam except for left facial droop which is chronic. Patient alert and oriented in the ED currently with no active hallucinations reported. Patient slightly confused on date only., 09:21 ECG was reviewed by the Attending Physician. EKG demonstrates normal sinus rhythm at 66 sp3 bpm with normal intervals, normal QRS, normal axis, nonspecific diffuse ST/T changes without evidence of acute ischemia. Vital Signs: 08:33 BP 122 / 72; Pulse 63; Resp 18; Temp 98.7; Pulse Ox 97% on R/A; Weight 56.7 kg; Height ap3 5 ft. 6 in. ; 09:28 BP 117 / 54; Pulse 60; Resp 15; Pulse Ox 95% ; hb 10:21 BP 109 / 56; Pulse 55; Resp 17; Pulse Ox 96% on R/A; ap3 10:47 BP 109 / 78; Pulse 59; Resp 17; Pulse Ox 98% on R/A; ap3 11:01 BP 112 / 71; Pulse 57; Resp 14; Pulse Ox 99% on R/A; hb 12:03 BP 126 / 88; Pulse 65; Pulse Ox 98% on R/A; ap3 13:27 BP 116 / 63; Pulse 53; Resp 15; Pulse Ox 98% on R/A; hb 08:33 Body Mass Index 20.18 (56.70 kg, 167.64 cm) ap3 MDM: 08:21 Medical Screening Exam initiated sp3 09:21 Data reviewed: vital signs, nurses notes, old medical records, lab test result(s), EKG, sp3 radiologic studies. ED course: 63-year-old female with PMH above now with hallucinations and confusion. Differential diagnosis includes delirium, new brain mass, TIA/CVA spectrum, electrolyte abnormality, UTI, other infection, among others. Workup will be broad and include general labs, CT scan of the head including angiograms, UA and general supportive care. Disposition pending workup patient course. Vital signs currently normal and patient stable.. 10:13 ED course: Further history demonstrates patient did fall yesterday striking head onto sp3 concrete. states she had 3 total falls. Again very poor historian on both patient and . Will go ahead and initiate transfer to [facility] for neurosurgical consultation.. 09/21 08:32 Order name: Basic Metabolic Panel; Complete Time: 10:07 sp3 09/21 08:32 Order name: CBC with Diff; Complete Time: 10:07 09/21 08:32 Order name: LFT's; Complete Time: 10:07 09/21 08:32 Order name: Magnesium; Complete Time: 10:07 sp3 09/21 08:32 Order name: NT PRO-BNP; Complete Time: 10:07 09/21 08:32 Order name: Troponin HS; Complete Time: 10:07 09/21 08:33 Order name: CT Head Angio; Complete Time: 10:12 09/21 08:33 Order name: CT Neck Angio; Complete Time: 10:20 09/21 08:33 Order name: CT Head Brain wo Cont; Complete Time: 10:07 09/21 08:32 Order name: EKG; Complete Time: 08:32 sp3 09/21 08:32 Order name: Cardiac monitoring; Complete Time: 08:35 sp3 09/21 08:32 Order name: EKG - Nurse/Tech; Complete Time: 08:36 sp09/21 08:32 Order name: IV Saline Lock; Complete Time: 08:49 sp3 09/21 08:32 Order name: Labs collected and sent; Complete Time: 08:49 sp3 09/21 08:32 Order name: O2 Sat Monitoring; Complete Time: 08:40 sp3 09/21 08:33 Order name: NPO; Complete Time: 08:42 sp3 Administered Medications: No medications were administered Disposition: 10:35 Critical Care:. sp3 Disposition Summary: 09/21/24 10:15 Transfer Ordered Notes: Transfer Location: [facility] sp3 Reason: Higher level of care sp3 Condition: Stable sp3 Problem: new sp3 Symptoms: are unchanged sp3 Accepting Physician: [facility] neurosurgery(09/21/24 14:27) jb4 Diagnosis - Subdural hemorrhage, fall, confusion sp3 Forms: - Medication Reconciliation Form sp3 - SBAR form sp3 Critical care time excluding procedures: 10:35 Critical care time: Bedside Care: 10 minutes, Consultation: 10 minutes, Family sp3 Intervention: 10 minutes. Total time: 30 minutes Signatures: Dispatcher [employer] EDJacob Samayoa RN RN jb4 Izabela Sy RN RN ap3 Brandon Genao MD MD sp3 Corrections: (The following items were deleted from the chart) 08:32 08:32 BASIC METABOLIC PANEL+C.LAB.BRZ ordered. EDMS EDMS 08:32 08:32 CBC+H.LAB.BRZ ordered. EDMS EDMS 08:32 08:32 HEPATIC FUNCTION+C.LAB.BRZ ordered. EDMS EDMS 08:32 08:32 MAGNESIUM+C.LAB.BRZ ordered. EDMS EDMS 08:32 08:32 PROBNP+C.LAB.BRZ ordered. EDMS EDMS 08:32 08:32 Troponin High Sensitivity+C.LAB.BRZ ordered. EDMS EDMS 14:27 10:15 [facility] neurosurgery sp3 jb4
--- NOTE | 2024-09-21 10:15 | ER ---
Nurse's Notes [facility] Name: Azeb Angel Age: 63 yrs Sex: Female : 1960 Arrival Date: 09/21/2024 Time: 08:17 Bed 2 Private MD: Diagnosis: Subdural hemorrhage, fall, confusion Presentation: 09/21 08:33 Chief complaint: Patient states: she came to see a psychiatrist due to hallucinations ap3 that started yesterday and went into the night. patient also reports three falls that occurred yesterday, and presents to the ED with dry blood in right nostril. Coronavirus screen: At this time, the client does not indicate any symptoms associated with coronavirus-19. Ebola Screen: No symptoms or risks identified at this time. Initial Sepsis Screen: Does the patient meet any 2 criteria? No. Patient's initial sepsis screen is negative. Does the patient have a suspected source of infection? No. Patient's initial sepsis screen is negative. Risk Assessment: Do you want to hurt yourself or someone else? Patient reports no desire to harm self or others. Onset of symptoms was September 20, 2024. Transition of care: patient was not received from another setting of care. 08:33 Method Of Arrival: Wheelchair ap3 08:33 Acuity: KAT 2 ap3 Triage Assessment: 08:40 General: Appears comfortable, Behavior is calm. Pain: Complains of pain in generalized ap3 body aches Is chronic. Neuro: Level of Consciousness is awake, alert, obeys commands, Oriented to person, place, time, situation, Geometry Professor are equal bilaterally Speech is normal. Neuro: Reports hallucinations . Cardiovascular: Patient's skin is warm and dry. Respiratory: Airway is patent Respiratory effort is even, unlabored, Respiratory pattern is regular, symmetrical. Historical: - Allergies: 08:36 Codeine; ap3 08:36 Ibuprofen; ap3 - Home Meds: 08:36 None [Active]; ap3 - PMHx: 08:36 brain and lung cancer; ap3 - Immunization history:: Adult Immunizations unknown. - Infectious Disease History:: Denies. - Social history:: Smoking status: Patient reports the use of cigarette tobacco products, smokes one-half pack cigarettes per day. Screenin:41 [facility] ED Fall Risk Assessment (Adult) History of falling in the last 3 months, ap3 including since admission Yes- fall prone (multiple falls) (3 pts) Confusion or Disorientation No (0 pts) Intoxicated or Sedated No (0 pts) Impaired Gait Yes (1 pt) Mobility Assist Device Used No (0 pt) Altered Elimination No (0 pt) Score/Fall Risk Level 3 or more points = High Risk Oriented to surroundings, Maintained a safe environment, Educated pt \T\ family on fall prevention, incl call for assistance when getting out of bed, Assessed \T\ reinforced patient's understanding of fall precautions, Provided non-skid footwear, Hourly rounding (assess needs \T\ fall precautionary measures) done, Used ambulatory aids as needed (educated on \T\ assisted with), Remained w/in arm's length of patient and in sight while toileting, Offered frequent toileting (1:1 observation), Utilized family, sitter, or virtual vat tender as indicated. Abuse screen: Denies threats or abuse. Nutritional screening: No deficits noted. Tuberculosis screening: No symptoms or risk factors identified. Assessment: 11:01 Reassessment: Patient appears in no apparent distress at this time. No changes from previously documented assessment. Patient and/or family updated on plan of care and expected duration. Pain level reassessed. 13:20 Reassessment: attempted to call report to [facility] Neuro ICU, room not ready, instructed hb to call back in 30 mins. 14:25 Reassessment: Pt continues to hallucinate, is oriented to place and self. Report given jb4 to JUANY Delgadillo at receiving facility. Vital Signs: 08:33 BP 122 / 72; Pulse 63; Resp 18; Temp 98.7; Pulse Ox 97% on R/A; Weight 56.7 kg; Height ap3 5 ft. 6 in. ; 09:28 BP 117 / 54; Pulse 60; Resp 15; Pulse Ox 95% ; hb 10:21 BP 109 / 56; Pulse 55; Resp 17; Pulse Ox 96% on R/A; ap3 10:47 BP 109 / 78; Pulse 59; Resp 17; Pulse Ox 98% on R/A; ap3 11:01 BP 112 / 71; Pulse 57; Resp 14; Pulse Ox 99% on R/A; hb 12:03 BP 126 / 88; Pulse 65; Pulse Ox 98% on R/A; ap3 13:27 BP 116 / 63; Pulse 53; Resp 15; Pulse Ox 98% on R/A; hb 08:33 Body Mass Index 20.18 (56.70 kg, 167.64 cm) ap3 ED Course: 08:18 Patient arrived in ED. im 08:21 Brandon Genao MD is Attending Physician. sp3 08:33 Izabela Sy, JUANY is Primary Nurse. ap3 08:36 Triage completed. ap3 08:42 Arm band placed on right wrist. ap3 08:42 Patient has correct armband on for positive identification. Bed in low position. Call ap3 light in reach. Side rails up X2. Adult w/ patient. Client placed on continuous cardiac and pulse oximetry monitoring. NIBP monitoring applied. engine monitor on. Pulse ox on. NIBP on. 08:49 Basic Metabolic Panel Sent. cc6 08:49 CBC with Diff Sent. cc6 08:50 LFT's Sent. cc6 08:50 Magnesium Sent. cc6 08:50 NT PRO-BNP Sent. cc6 08:50 Troponin HS Sent. cc6 09:20 CT Head Angio In Process Unspecified. EDMS 09:20 CT Neck Angio In Process Unspecified. EDMS 09:20 CT Head Brain wo Cont In Process Unspecified. EDMS 10:06 patient placed on purewick. ap3 10:18 [facility] CONTACTED TO INITIATE TRANSFER, CALL DISCONNECTED BEFORE ANSWER. ty 10:22 [facility] CONTACTED TO INITIATE TRANSFER, SPOKE WITH JOSHUA RAY RN. ty 10:47 Inserted saline lock: 20 gauge in right wrist, using aseptic technique. Flushed with 10 ap3 mL NS. 12:53 CALLED [facility] REGARDING UPDATE FOR BED PLACEMENT, BED BEING CLEANED ETA 30 MINUTES. ty 12:55 UPDATED FACESHEET FAXED TO [facility]. ty 13:19 NURSE 2 NURSE GIVEN TO RN. ty 13:21 [facility] CALLED REGARDING RECEIVING NURSE STATED ROOM IS STILL DIRTY AND WILL NOT TAKE ty REPORT. 13:26 BAG END SEWER ADVISED WAITING 15 MINUTES TO GIVE REPORT AND TRY AGAIN. ty 14:26 Provided Education on: need for transfer to pt and . jb4 14:26 No provider procedures requiring assistance completed. Patient transferred, IV remains jb4 in place. Administered Medications: No medications were administered Medication: 14:26 VIS not applicable for this client. jb4 Outcome: 10:15 ER care complete, transfer ordered by sp3 14:26 Transferred by ground EMS to [facility], Transfer form completed. jb4 X-rays sent w/ patient. 14:26 Condition: stable 14:26 Discharge instructions given to patient, family, Instructed on the need for transfer, Demonstrated understanding of instructions, 14:27 Patient left the ED. jb4 Signatures: Dispatcher [employer] EDLili Foster RN RN hb Bryson, James, RN RN jb4 Izabela Sy RN RN ap3 Brandon Genao MD MD sp3 Juliann Shahid Tylor ty Cardoza, Cassandra cc6 Corrections: (The following items were deleted from the chart) 10:23 10:18 [facility] CONTACTED TO INITIATE TRANSFER, SPOKE WITH ty ty 10:28 10:22 [facility] CONTACTED TO INITIATE TRANSFER, SPOKE WITH ty ty 12:55 12:53 [facility]ARD[facility] FOR BED PLACEMENT ty ty
--- NOTE | 2024-09-21 10:19 | RAD REPORT ---
EXAMINATION: CT Neck Angio CLINICAL INDICATION: Female, 63 years old. [facility] MAIN confusion h/o CVA Bed Name: 2 TECHNIQUE: Axial CT images were obtained from the aortic arch to the skull base after intravenous con trast utilizing angiographic protocol. Multiplanar reformats, as well as 3D post-processing (maximum intensity projection images, volume rendered images and/or shaded surface rendered images) w ere generated and reviewed. One or more of the following dose reduction techniques were used: Automated exposure control, adjustment of the mA and/or kV according to patient size, and/or iterativ e reconstruction. Unless otherwise specified, incidental findings do not require dedicated imaging follow-up. COMPARISON: No prior exam. FINDINGS: AORTA: The imaged aortic arch is normal. Normal three-vessel configuration of the arch. CCA: No artifact The common carotid arteries are patent and normal in caliber. ICA/ECA: Bilateral internal and external carotid arteries are patent. There is no significant interna l carotid artery stenosis. VERTEBRAL: The cervical vertebral arteries are patent to the skull base. Vertebral arteries are codom inant. SOFT TISSUE: No significant neck soft tissue abnormalities. The visualized lung apices are clear. 3D images confirm these findings. IMPRESSION: No significant flow abnormality of the neck vessels is identified. NASCET criteria used to quantify ICA stenosis, with the following grading scheme: Mild 0-49% stenosis Moderate 50-69% stenosis Severe 70-99% stenosis Reference: [place] Symptomatic Carotid Endarterectomy Trial Collaborators; Jana SMITH, Kelly VENCES, Javier RB, et al. Beneficial effect of carotid endarterectomy in symptomatic patients with high-grade carotid stenosis. N Engl J Med. 1990Feb 08;325(7):445-53.
[2024-09-21 14:50] VITALS: TEMP 98.7
[2024-09-21 15:04] VITALS: O2SAT 98
[2024-09-21 15:06] VITALS: BP 116/63
--- NOTE | 2024-09-24 11:30 | EKG ---
Test Date: 2024-09-21 Test Time: 08:31:38 Wheel Blocker: MERLY MEASUREMENT RESULTS: Intervals: Rate: 66 OK: 142 QRSD: 88 QT: 420 QTc: 440 [place]: P: 45 OK: 142 QRS: 13 T: 145 INTERPRETIVE STATEMENTS: Normal sinus rhythm ST & T wave abnormality, consider anterolateral ischemia Abnormal ECG No previous ECG available for comparison Electronically Signed On 09-24-24 11:23:04 CDT by Joe Amlaguer
== END 2024-09-21 14:27 | disposition short-term general hospital (02) ==
LOC: ER 08:17
DX: S06.5X0A Traumatic subdural hemorrhage without loss of consciousness, initial encounter (principal); W18.30XA Fall on same level, unspecified, initial encounter; F17.210 Nicotine dependence, cigarettes, uncomplicated; Z85.118 Personal history of other malignant neoplasm of bronchus and lung; Z85.841 Personal history of malignant neoplasm of brain
CPT/HCPCS: 36415; 70450; 70496; 70498; 80048; 80076; 83735; 83880; 84484; 85025; 93005; 99285; Q9967